=== PATIENT | male | born 1930 | race Caucasian/White ===

== ENCOUNTER 2018-08-06 15:18 | Inpatient (IN) | payer MEDICARE ==
--- NOTE | 2018-08-06 15:45 | ED Physician Chart ---
ED Chief Complaint/HPI - Patient Information Date Seen:: 08/06/18 Time Seen:: 15:25 Chief Complaint:: Abnormal lab result with leukocytosis History of Present Illness:: Brought in by ambulance from nursing facility because pt's lab studies yesterday demonstrated WBC 14.07K, and CXR revealed right upper lobe infiltrate. Pt states he has a nonproductive cough but no dyspnea or chest pain. Pt has h/o dementia. Pt tends to be forgetful and is a poor history provider. Allergies:: Allergies Allergy/AdvReac Type Severity Reaction Status Date / Time No Known Allergies Allergy Verified 08/06/18 15:26 Vitals:: Vital Signs - 8 hr 08/06/18 15:26 Temp 98.7 F HR 80 RR 17 BP 141/64 O2 Sat % 96 Historian:: Patient Family MD/PCP:: Dr. Mcnally. LMP:: N/A Review:: Nurse's Note Reviewed, Transfer documents Reviewed ED Review of Systems - Review of Systems General/Constitutional: Other (Pt does not cooperate to provide reliable info for ROS.) ED Past Medical History - Past Medical History Past Medical History: HTN, CAD, Dyslipidemia, Dementia, Other (Parkinson's Disease. BPH.) Family History: None Social History: Non Smoker, No Alcohol, No Drug Use Surgical History: CABG Psychiatricy History: Dementia Medication: Reviewed Family Medical History - Family Member Mother History Unknown: Yes ED Physical Exam - Physical Examination General/Constitutional: Awake, Well-developed, well-nourished (elderly male), Alert, No distress, Non-toxic appearing Other Gen/Cons comments:: Breathes comfortably, speaks clearly, but is not fully cooperative. Head: Atraumatic Eyes: Lids, conjuctiva normal, PERRL, EOMI Skin: No rash, No lymphadenopathy ENMT: External ears, nose nl, Nasal exam nl, Oropharynx nl Neck: Nontender, Full ROM w/o pain, No JVD, No nuchal rigidity, No mass Respiratory: Nl effort/Exclusion Other Respiratory comments:: There mild rales noticed in R mid lung field. No wheeze. Cardio Vascular: RRR, No murmur, gallop, rubs, Carotid/Femoral/Distal pulses equal bilaterally Other Cardio Vascular comments:: Chest exam shows a well healed sternostomy scar. GI: No tenderness/rebounding/guarding, Normal BS's, Nondistended, No mass/bruits Other GI comments:: Abdomen is soft. Extremities: No tenderness or effusion, Full ROM, No edema Neuro/Psych: Alert/oriented (knows his name and that he is in a hospital. Spontaneous movements noticed in all 4 extremities. Pt does not cooperate for full neurological exam.) ED Labs/Radiology/EKG Results - Lab Results Results: Laboratory Results - last 24 hr 08/06/18 16:20 WBC 9.0 RBC 4.70 Hgb 11.5 L Hct 36.3 L MCV 77.2 L MCH 24.5 L MCHC Differential 31.7 RDW 15.9 Plt Count 156 MPV 8.3 Neutrophils % 65.3 Lymphocytes % 22.8 Monocytes % 10.5 H Eosinophils % 1.0 Basophils % 0.4 Laboratory Last Values WBC 9.0 Th/cmm (4.8-10.8) 08/06/18 16:20 RBC 4.70 Mil/cmm (3.80-5.80) 08/06/18 16:20 Hgb 11.5 gm/dL (12-16) L 08/06/18 16:20 Hct 36.3 % (41.0-60) L 08/06/18 16:20 MCV 77.2 fl (80-99) L 08/06/18 16:20 MCH 24.5 pg (27.0-31.0) L 08/06/18 16:20 MCHC Differential 31.7 pg (28.0-36.0) 08/06/18 16:20 RDW 15.9 % (11.5-20.0) 08/06/18 16:20 Plt Count 156 Th/cmm (150-400) 08/06/18 16:20 MPV 8.3 fl 08/06/18 16:20 Neutrophils % 65.3 % (40.0-80.0) 08/06/18 16:20 Lymphocytes % 22.8 % (20.0-50.0) 08/06/18 16:20 Monocytes % 10.5 % (2.0-10.0) H 08/06/18 16:20 Eosinophils % 1.0 % (0.0-5.0) 08/06/18 16:20 Basophils % 0.4 % (0.0-2.0) 08/06/18 16:20 PT 11.4 SECONDS (9.5-11.5) 08/06/18 16:20 INR 1.11 (0.5-1.4) 08/06/18 16:20 PTT (Actin FS) 26.7 SECONDS (26.0-38.0) 08/06/18 16:20 Sodium 141 mEq/L (136-145) 08/06/18 16:20 Potassium 3.9 mEq/L (3.5-5.1) 08/06/18 16:20 Chloride 106 mEq/L (98-107) 08/06/18 16:20 Carbon Dioxide 27.5 mEq/L (21.0-31.0) 08/06/18 16:20 Anion Gap 11.4 (7.0-16.0) 08/06/18 16:20 BUN 26 mg/dL (7-25) H 08/06/18 16:20 Creatinine 1.0 mg/dL (0.7-1.3) 08/06/18 16:20 Est GFR ( Amer) TNP 08/06/18 16:20 Est GFR (Non-Af Amer) TNP 08/06/18 16:20 BUN/Creatinine Ratio 26.0 08/06/18 16:20 Glucose 114 mg/dL (70-105) H 08/06/18 16:20 Whole Bld Lactic Acid 1.32 mmol/L (0.60-1.99) 08/06/18 16:20 Calcium 9.0 mg/dL (8.6-10.3) 08/06/18 16:20 Total Bilirubin 0.7 mg/dL (0.3-1.0) 08/06/18 16:20 AST 16 U/L (13-39) 08/06/18 16:20 ALT 7 U/L (7-52) 08/06/18 16:20 Alkaline Phosphatase 84 U/L (34-104) 08/06/18 16:20 Total Protein 6.0 gm/dL (6.0-8.3) 08/06/18 16:20 Albumin 3.5 gm/dL (4.2-5.5) L 08/06/18 16:20 Globulin 2.5 gm/dL 08/06/18 16:20 Albumin/Globulin Ratio 1.4 (1.0-1.8) 08/06/18 16:20 Pending lab results to be followed by admitting attending physician: blood cultures, urinalysis. - Radiology Results Results: CXR (1v.): Based on my interpretation, RUL infiltrate c/w pneumonia. Official report is pending. ED Septic Shock - . Is Septic Shock (SBP<90, OR Lactate>4 mmol\L) present?: No - <6hrs of presentation: Vital Signs: Vital Signs - 8 hr 08/06/18 15:26 Temp 98.7 F HR 80 RR 17 BP 141/64 O2 Sat % 96 ED Reassessment (Disposition) - Reassessment Reassessment:: 1640 Pt remains stable. Available lab results and CXR findings have been reviewed with pt. Management plan has been discussed. Case was discussed with Dr. Mcnally with pertinent info, including CXR and available lab results reviewed. Pt is to be admitted Medical [facility]to with respiratory isolation under his care. He will follow on pending lab results. - Diagnosis Diagnosis:: RUL pneumonia. H/O HTN. Mild anemia. H/O ASHD, s/p CABG. H/O Parkinson's Disease. H/O Dementia. - Patient Disposition Admitted to:: Med/Surg Admitting Medical Physician:: Jen Mcnally Time:: 16:45 Condition at Disposition:: Stable
[2018-08-06] MEDS ORDERED: Azithromycin 500 MG in Sodium Chloride 0.9% 250 ML IV ONE (15:58)
[2018-08-06] MEDS ORDERED: cefTRIAXone 1 GM in Sodium Chloride 0.9% 50 ML IV ONE (15:58)
[2018-08-06 16:26] LABS: % BASOPHILS 0.4 % (0.0-2.0); % LYMPHOCYTES 22.8 % (20.0-50.0); % MONOCYTES 10.5 % (2.0-10.0); % NEUTROPHILS 65.3 % (40.0-80.0); EOSINOPHILE ABSOLUTE 0.1 Th/cmm (0.1-0.4); HEMATOCRIT 36.3 % (41.0-60); HEMOGLOBIN 11.5 gm/dL (12-16); LYMPHOCYTE ABSOLUTE 2.1 Th/cmm (1.5-3.0); MEAN CELL VOLUME 77.2 fl (80-99); MEAN CORPUSCULAR HEMOGLOBIN 24.5 pg (27.0-31.0); MEAN CORPUSCULAR HGB CONC 31.7 pg (28.0-36.0); MEAN PLATELET VOLUME 8.3 fl; MONOCYTE ABSOLUTE 0.9 Th/cmm (0.3-1.0); NEUTROPHILE ABSOLUTE 5.9 Th/cmm (1.8-8.0); PLATELET COUNT 156 Th/cmm (150-400); RED CELL DISTRIBUTION WIDTH 15.9 % (11.5-20.0)
[2018-08-06 16:41] LABS: ALB/GLOB RATIO 1.4 (1.0-1.8); ALBUMIN 3.5 gm/dL (4.2-5.5); ALKALINE PHOSPHATASE 84 U/L (34-104); ANION GAP 11.4 (7.0-16.0); BILIRUBIN,TOTAL 0.7 mg/dL (0.3-1.0); BUN - UREA NITROGEN 26 mg/dL (7-25); CARBON DIOXIDE 27.5 mEq/L (21.0-31.0); CHLORIDE 106 mEq/L (98-107); GLUCOSE 114 mg/dL (70-105); INR 1.11 (0.5-1.4); POTASSIUM SERUM 3.9 mEq/L (3.5-5.1); PROTHROMBIN TIME (TEST) 11.4 SECONDS (9.5-11.5); SGOT 16 U/L (13-39); SGPT/ALT 7 U/L (7-52); SODIUM SERUM 141 mEq/L (136-145)
[2018-08-06 16:56] LABS: URINE SOURCE CLEAN C
[2018-08-06 16:57] LABS: URINE BILIRUBIN NEGATIVE (NEGATIVE); URINE BLOOD NEGATIVE (NEGATIVE); URINE GLUCOSE (UA) NEGATIVE (NEGATIVE); URINE KETONE TRACE mg/dL (NEGATIVE); URINE LEUKOCYTE ESTERASE NEGATIVE (NEGATIVE); URINE NITRATE NEGATIVE (NEGATIVE); URINE PROTEIN NEGATIVE (NEGATIVE); URINE UROBILINOGEN 0.2 E.U./dL (0.2 - 1.0)
[2018-08-06 17:00] LABS: URINE CLARITY CLEAR (CLEAR); URINE COLOR YELLOW; URINE MICROSCOPIC INDICATED? YES
[2018-08-06 17:05] LABS: URINE BACTERIA FEW /hpf (NONE SEEN); URINE EPITHELIAL CELLS OCCASIONAL /lpf (FEW); URINE WBC 0-2 /hpf (0-5)
[2018-08-07 06:57] LABS: % BASOPHILS 1.1 % (0.0-2.0); % EOSINOPHILS 2.1 % (0.0-5.0); % LYMPHOCYTES 21.9 % (20.0-50.0); % MONOCYTES 8.5 % (2.0-10.0); % NEUTROPHILS 66.4 % (40.0-80.0); BASOPHILE ABSOLUTE 0.1 Th/cumm (0-0.2); EOSINOPHILE ABSOLUTE 0.2 Th/cmm (0.1-0.4); HEMATOCRIT 36.8 % (41.0-60); LYMPHOCYTE ABSOLUTE 1.9 Th/cmm (1.5-3.0); MEAN CELL VOLUME 78.6 fl (80-99); MEAN CORPUSCULAR HEMOGLOBIN 25.6 pg (27.0-31.0); MEAN CORPUSCULAR HGB CONC 32.6 pg (28.0-36.0); MEAN PLATELET VOLUME 8.7 fl; MONOCYTE ABSOLUTE 0.7 Th/cmm (0.3-1.0); NEUTROPHILE ABSOLUTE 5.6 Th/cmm (1.8-8.0); PLATELET COUNT 155 Th/cmm (150-400); RED BLOOD COUNT 4.68 Mil/cmm (3.80-5.80); RED CELL DISTRIBUTION WIDTH 15.9 % (11.5-20.0); WHITE BLOOD COUNT 8.5 Th/cmm (4.8-10.8)
[2018-08-07 07:22] LABS: ALB/GLOB RATIO 1.3 (1.0-1.8); ALBUMIN 3.3 gm/dL (4.2-5.5); ALKALINE PHOSPHATASE 70 U/L (34-104); ANION GAP 11.6 (7.0-16.0); BILIRUBIN,TOTAL 0.8 mg/dL (0.3-1.0); BUN - UREA NITROGEN 21 mg/dL (7-25); CALCIUM SERUM 8.7 mg/dL (8.6-10.3); CARBON DIOXIDE 25.4 mEq/L (21.0-31.0); CHLORIDE 107 mEq/L (98-107); CREATININE - SERUM 0.9 mg/dL (0.7-1.3); GLUCOSE 98 mg/dL (70-105); SGOT 21 U/L (13-39); SGPT/ALT 12 U/L (7-52); SODIUM SERUM 140 mEq/L (136-145); TOTAL PROTEIN,SERUM 5.8 gm/dL (6.0-8.3)
--- NOTE | 2018-08-07 08:40 | Diagnostic Imaging Report ---
CHEST X-RAY: AP view INDICATION: Leukocytosis, pneumonia COMPARISON: None FINDINGS: Right mid to right upper lung zone consolidative changes and infiltrates are noted. Small basal pleural thickening versus small right effusion is seen with elevation of right hemidiaphragm. There is evidence of prior median sternotomy. Borderline prominent heart is noted. Degenerative changes of spine are noted. IMPRESSION: Right mid to upper lung zone pneumonia and consolidative changes. Clinical correlation and follow up recommended to ensure resolution. Right basal pleural thickening versus small right effusion Evidence of prior median sternotomy.
[2018-08-07] MEDS: Escitalopram Oxalate 5 mg Tab PO SCH (09:31)
[2018-08-07] MEDS: Aspirin 81mg Chewable Tab PO SCH (09:31)
--- NOTE | 2018-08-07 13:51 | Consultation ---
DATE OF CONSULTATION: 08/07/2018 PSYCHIATRIC CONSULTATION THE PATIENT'S AGE: 88. SEX: Male. PHYSICIAN: Dr. Mcnally. CUT PRESS OPERATOR: Dr. Anne. TYPE OF THE REPORT: Psychiatric consult. REASON FOR THE CONSULT: Depression. HISTORY OF PRESENT ILLNESS: The patient is an 88-year-old male with history of dementia. The patient also has Parkinson's disease. The patient was admitted to the hospital with elevated white blood count and to rule out pneumonia. The patient has been anxious and has been depressed. I was asked to evaluate the patient. The patient was severely depressed and kept closing his eyes during my interview and did not answer most of my questions. He is living in a half-way in the [facility] and he has been interacting minimally with others. The patient denies any intention to harm himself or others, but has been depressed. PAST PSYCHIATRIC HISTORY: Noncontributory. PAST MEDICAL HISTORY: The patient has history of hypertension and Parkinson's disease. Question pneumonia. MENTAL STATUS EXAM: The patient appears his stated age. Sad affect. Depressed mood. Thought processes are with poverty of speech. The patient did not answer question regarding hallucinations or delusions. Denies any thoughts of suicide or homicide. The patient is alert and oriented to situation, not to place or person. Impaired immediate and recent memory, but intact remote memories. Fair insight and judgment. ASSESSMENT: PRIMARY DIAGNOSIS: Depressive mood disorder, unspecified. SECONDARY DIAGNOSIS: Dementia, moderate to severe, without psychotic features. TREATMENT PLAN: We will start the patient on Lexapro 5 mg every day. We will start individual as well as milieu psychotherapy. We will monitor psychotropic medications. Thanks to Dr. Mcnally and we will follow with you. [facility]# [id number]
[2018-08-07] MEDS: Azithromycin 500 MG in Sodium Chloride 0.9% 250 ML IV SCH (15:04)
--- NOTE | 2018-08-07 15:17 | History & Physical ---
ADMIT DATE: 08/06/[address] Mcnally. CHIEF COMPLAINT: Abnormal lab. HISTORY OF PRESENT ILLNESS: An 88-year-old male who is a long-term resident, admitted to the Med/Surg Unit due to white count of 14,000 and the patient had a chest x-ray and it revealed right upper lobe pneumonia. No reports of any fevers at the long-term. PAST MEDICAL HISTORY: Hypertension, CAD, dementia, dyslipidemia, Parkinson's, BPH. FAMILY HISTORY: Noncontributory. SOCIAL HISTORY: The patient is a long-term resident. SURGICAL HISTORY: CABG. MEDICATIONS: See medication list. REVIEW OF SYSTEMS: Unable to obtain, patient is confused. PHYSICAL EXAMINATION: GENERAL: Elderly male, awake, alert with confusion, no apparent distress. VITAL SIGNS: Temperature 98.6, heart rate 96, blood pressure 140/64, respirations 18, O2 95%. HEENT: Head: Normocephalic, atraumatic. NECK: Supple. No mass. LUNGS: Few rhonchi bilaterally. HEART: Regular rhythm. ABDOMEN: Soft, nontender. LABORATORY DATA: WBC 8.5, H and H 12.0 and 36.8, platelet of 155. Sodium 140, potassium 4.0, chloride 107, BUN 21, creatinine 0.9. DIAGNOSTIC STUDIES: The patient had a chest x-ray done. Impression is right mid to upper lung zone pneumonia and consolidated changes. Clinical correlation and followup recommended to ensure resolution; right basal pleural thickening versus small right effusion, evidence of median sternotomy. ASSESSMENT: Right upper lobe pneumonia, possible tuberculosis, leukocytosis secondary to above, hypertension, coronary artery disease, dyslipidemia, dementia, Parkinson's, benign prostatic hypertrophy. PLAN: The patient to be admitted to Med/Surg unit. We will get Infectious Disease, robot programmer on the case to rule out for TB, airborne isolation, collect AFB, TB quant, IV antibiotics of Zithromax and Rocephin. We will get followup labs for tomorrow morning. We will continue to monitor this patient. JOB# [id number]
[2018-08-07] MEDS ORDERED: cefTRIAXone 1 GM in Sodium Chloride 0.9% 50 ML IV ONE (17:00)
[2018-08-07] MEDS ORDERED: Probiotic Screen MC PRN (17:30)
[2018-08-08 07:15] LABS: % BASOPHILS 0.4 % (0.0-2.0); % EOSINOPHILS 3.5 % (0.0-5.0); % LYMPHOCYTES 21.2 % (20.0-50.0); % NEUTROPHILS 65.9 % (40.0-80.0); EOSINOPHILE ABSOLUTE 0.3 Th/cmm (0.1-0.4); HEMATOCRIT 40.5 % (41.0-60); HEMOGLOBIN 12.9 gm/dL (12-16); MEAN CELL VOLUME 77.8 fl (80-99); MEAN CORPUSCULAR HEMOGLOBIN 24.7 pg (27.0-31.0); MEAN CORPUSCULAR HGB CONC 31.8 pg (28.0-36.0); MONOCYTE ABSOLUTE 0.8 Th/cmm (0.3-1.0); NEUTROPHILE ABSOLUTE 6.1 Th/cmm (1.8-8.0); PLATELET COUNT 174 Th/cmm (150-400); RED BLOOD COUNT 5.21 Mil/cmm (3.80-5.80); WHITE BLOOD COUNT 9.2 Th/cmm (4.8-10.8)
--- NOTE | 2018-08-08 07:24 | Consultation ---
DATE OF CONSULTATION: 08/07/2018 REFERRING PHYSICIAN: Dr. Mcnally, Dr. Damon Lyles. Thank you very much for this consultation. HISTORY OF PRESENT ILLNESS: This is an 88-year-old nice male with history of hypertension on admission, dyslipidemia, Parkinson's, presents with some cough and leukocytosis. Chest x-ray showed right upper lobe infiltrate. The patient was admitted for treatment and management. The patient is feeling better, has less cough and some mucus coming off. He denies history of TB, exposure to tuberculosis. Denies history of lung problems. He is a nonsmoker. REVIEW OF SYSTEMS: GENERAL: He has no fatigue. CARDIOVASCULAR: No chest pain or palpation. RESPIRATORY: No shortness of breath, minimal cough. PHYSICAL EXAMINATION: GENERAL: Awake, alert, not in acute distress. VITAL SIGNS: Temperature 98.3, pulse 92, respiration 18, blood pressure 153/80, saturation 96%. HEENT: Atraumatic, normocephalic. Pupils react to light and accommodation. Ears, nose and throat normal. NECK: Supple. No JVD. CHEST: There are few rhonchi. Fair air entry bilaterally. HEART: Regular rate and rhythm. ABDOMEN: Soft. EXTREMITIES: No edema. LABORATORY DATA: WBC is 8.5, hemoglobin 12.0, platelets 155. Sodium 140, potassium 4.0, BUN is 21, creatinine 0.9. Chest x-ray, right upper lobe infiltrate. IMPRESSION: This is an 88-year-old male with most likely pneumonia, less likely tuberculosis. PLAN: 1. Antibiotics. 2. Nebulizer. 3. CT of the chest for better evaluation. JOB# [id number]
[2018-08-08 07:32] LABS: BUN - UREA NITROGEN 19 mg/dL (7-25); CALCIUM SERUM 9.1 mg/dL (8.6-10.3); CARBON DIOXIDE 26.3 mEq/L (21.0-31.0); CHLORIDE 108 mEq/L (98-107); CREATININE - SERUM 0.9 mg/dL (0.7-1.3); GLUCOSE 115 mg/dL (70-105); POTASSIUM SERUM 4.3 mEq/L (3.5-5.1); SODIUM SERUM 143 mEq/L (136-145)
[2018-08-08] MEDS: Aspirin 81mg Chewable Tab PO SCH (09:11)
[2018-08-08] MEDS: Escitalopram Oxalate 5 mg Tab PO SCH (09:11)
[2018-08-08 10:59] LABS: ALB/GLOB RATIO 1.3 (1.0-1.8); ALBUMIN 3.5 gm/dL (4.2-5.5); BILIRUBIN,DIRECT 0.2 mg/dL (0.0-0.2); BILIRUBIN,TOTAL 0.8 mg/dL (0.3-1.0); TOTAL PROTEIN,SERUM 6.2 gm/dL (6.0-8.3)
[2018-08-08] MEDS: cefTRIAXone 1 GM in Sodium Chloride 0.9% 50 ML IV SCH (15:18)
[2018-08-08] MEDS: Azithromycin 500 MG in Sodium Chloride 0.9% 250 ML IV SCH (15:19)
--- NOTE | 2018-08-08 20:21 | Internal Medicine Prog Note ---
Internal Medicine Subjective - Subjective Service Date: 08/08/18 Patient seen and examined:: with staff Patient is:: awake, talking, confused Patient Complaints of:: congestion (hx of parkinson's disease.), other Per staff patient has:: no adverse event, no episodes of fall Internal Medicine Objective - Results Result Diagrams: 08/08/18 06:35 08/08/18 06:35 Recent Labs: Laboratory Last Values WBC 9.2 Th/cmm (4.8-10.8) 08/08/18 06:35 RBC 5.21 Mil/cmm (3.80-5.80) 08/08/18 06:35 Hgb 12.9 gm/dL (12-16) 08/08/18 06:35 Hct 40.5 % (41.0-60) L 08/08/18 06:35 MCV 77.8 fl (80-99) L 08/08/18 06:35 MCH 24.7 pg (27.0-31.0) L 08/08/18 06:35 MCHC Differential 31.8 pg (28.0-36.0) 08/08/18 06:35 RDW 16.0 % (11.5-20.0) 08/08/18 06:35 Plt Count 174 Th/cmm (150-400) 08/08/18 06:35 MPV 9.0 fl 08/08/18 06:35 Neutrophils % 65.9 % (40.0-80.0) 08/08/18 06:35 Lymphocytes % 21.2 % (20.0-50.0) 08/08/18 06:35 Monocytes % 9.0 % (2.0-10.0) 08/08/18 06:35 Eosinophils % 3.5 % (0.0-5.0) 08/08/18 06:35 Basophils % 0.4 % (0.0-2.0) 08/08/18 06:35 PT 11.4 SECONDS (9.5-11.5) 08/06/18 16:20 INR 1.11 (0.5-1.4) 08/06/18 16:20 PTT (Actin FS) 26.7 SECONDS (26.0-38.0) 08/06/18 16:20 Sodium 143 mEq/L (136-145) 08/08/18 06:35 Potassium 4.3 mEq/L (3.5-5.1) 08/08/18 06:35 Chloride 108 mEq/L (98-107) H 08/08/18 06:35 Carbon Dioxide 26.3 mEq/L (21.0-31.0) 08/08/18 06:35 Anion Gap 13.0 (7.0-16.0) 08/08/18 06:35 BUN 19 mg/dL (7-25) 08/08/18 06:35 Creatinine 0.9 mg/dL (0.7-1.3) 08/08/18 06:35 Est GFR ( Amer) TNP 08/08/18 06:35 Est GFR (Non-Af Amer) TNP 08/08/18 06:35 BUN/Creatinine Ratio 21.1 08/08/18 06:35 Glucose 115 mg/dL (70-105) H 08/08/18 06:35 POC Glucose 111 MG/DL (70 - 105) H 08/06/18 18:32 Whole Bld Lactic Acid 1.32 mmol/L (0.60-1.99) 08/06/18 16:20 Calcium 9.1 mg/dL (8.6-10.3) 08/08/18 06:35 Total Bilirubin 0.8 mg/dL (0.3-1.0) 08/08/18 06:35 Direct Bilirubin 0.20 mg/dL (0.0-0.2) 08/08/18 06:35 AST 22 U/L (13-39) 08/08/18 06:35 ALT 11 U/L (7-52) 08/08/18 06:35 Alkaline Phosphatase 75 U/L (34-104) 08/08/18 06:35 Total Protein 6.2 gm/dL (6.0-8.3) 08/08/18 06:35 Albumin 3.5 gm/dL (4.2-5.5) L 08/08/18 06:35 Globulin 2.7 gm/dL 08/08/18 06:35 Albumin/Globulin Ratio 1.3 (1.0-1.8) 08/08/18 06:35 Urine Source CLEAN C 08/06/18 14:55 Urine Color YELLOW 08/06/18 14:55 Urine Clarity CLEAR (CLEAR) 08/06/18 14:55 Urine pH 6.0 (4.6 - 8.0) 08/06/18 14:55 Ur Specific [place] 1.020 (1.005-1.030) 08/06/18 14:55 Urine Protein NEGATIVE mg/dL (NEGATIVE) 08/06/18 14:55 Urine Glucose (UA) NEGATIVE mg/dL (NEGATIVE) 08/06/18 14:55 Urine Ketones TRACE mg/dL (NEGATIVE) 08/06/18 14:55 Urine Blood NEGATIVE (NEGATIVE) 08/06/18 14:55 Urine Nitrate NEGATIVE (NEGATIVE) 08/06/18 14:55 Urine Bilirubin NEGATIVE (NEGATIVE) 08/06/18 14:55 Urine Urobilinogen 0.2 E.U./dL (0.2 - 1.0) 08/06/18 14:55 Ur Leukocyte Esterase NEGATIVE (NEGATIVE) 08/06/18 14:55 Urine RBC 2-5 /hpf (0-5) H 08/06/18 14:55 Urine WBC 0-2 /hpf (0-5) 08/06/18 14:55 Ur Epithelial Cells OCCASIONAL /lpf (FEW) 08/06/18 14:55 Calcium Oxalate Crystal FEW /hpf 08/06/18 14:55 Urine Bacteria FEW /hpf (NONE SEEN) 08/06/18 14:55 HIV 1&2 Antibody Screen NEGATIVE (NEG) 08/07/18 06:30 - Physical Exam Vitals and I&O: Vital Signs Temp 98.1 F 08/08/18 19:45 Pulse 75 08/08/18 19:45 Resp 18 08/08/18 19:45 BP 134/72 08/08/18 19:45 Pulse Ox 93 08/08/18 19:45 Intake & Output 08/08/18 08/08/18 08/09/18 06:59 18:59 06:59 Intake Total 700 Balance 700 Weight (lbs) 61.235 kg 61.235 kg Intake: Oral 700 Other: # Voids 4 # Bowel Movements 1 1 Weight Source Bedscale Bedscale Active Medications: Current Medications Acetaminophen (Tylenol) 650 mg PO Q4H PRN PRN Reason: ELEVATED TEMP >99.9 Acetaminophen (Tylenol) 650 mg PO Q4H PRN PRN Reason: PAIN Ascorbic Acid (Vitamin C) 500 mg PO BID SHERITA Stop: 10/06/18 08:59 Last Admin: 08/08/18 16:19 Dose: 500 mg Aspirin (Aspirin Chewable) 81 mg PO DAILY SHERITA Stop: 10/06/18 08:59 Last Admin: 08/08/18 09:11 Dose: 81 mg Atorvastatin Calcium (Lipitor) 80 mg PO HS [facility]; Protocol Stop: 10/06/18 20:59 Last Admin: 08/08/18 20:13 Dose: 80 mg Benazepril HCl (Lotensin) 5 mg PO DAILY SHERITA Stop: 10/06/18 08:59 Last Admin: 08/08/18 09:11 Dose: 5 mg Bisacodyl (Dulcolax 10 Mg Supp) 10 mg RC Q48H PRN PRN Reason: IF NO RELIEF FROM MOM Carbidopa/Levodopa (Sinemet 25mg-100 Mg) 1 tab PO TID [facility] Stop: 10/06/18 08:59 Last Admin: 08/08/18 20:13 Dose: 1 tab Escitalopram Oxalate (Lexapro) 5 mg PO DAILY [facility]; Protocol Stop: 10/06/18 08:59 Last Admin: 08/08/18 09:11 Dose: 5 mg Azithromycin 500 mg/ Sodium (Chloride) 250 mls @ 250 mls/hr IV Q24HR [facility] Stop: 10/06/18 15:59 Last Admin: 08/08/18 15:19 Dose: 250 mls/hr Ceftriaxone Sodium 1 gm/ (Sodium Chloride) 50 mls @ 100 mls/hr IV Q24HR [facility] Stop: 10/07/18 14:59 Last Admin: 08/08/18 15:18 Dose: 100 mls/hr Lorazepam (Ativan) 1 mg IM Q4HR PRN; Protocol PRN Reason: Agitation Stop: 10/05/18 23:34 Last Admin: 08/06/18 23:55 Dose: 1 mg Miscellaneous (Probiotic Screen) 1 ea [facility] PRN PRN PRN Reason: PROTOCOL Stop: 10/06/18 17:29 Physical Exam: 88 y/o male patient has hx of parkinson's disease and dementia. General: weak, demented HEENT: NC/AT Neck: Supple, No JVD Lungs: rales, ronchi, other (R/o TB.) Cardiovascular: RRR, Normal S1 Abdomen: soft, non-tender Extremities: clear Neurological: no change, muscle weakness Internal Medicine Assmt/Plan - Assessment Assessment: Parkinson's disease. Dementia. BPH. Dyslipidemia. HTN. CAD. Pneumonia. Possible TB, airborne isolation. Leukocytosis. - Plan Plan: Continuation of care. Monitor vitals, low sodium diabetic diet and Labs. Continue present meds as directed. Respiratory treatments and Pulmonary support. Supplemental Oxygen. Aspiration precaution. Deep suctioning prn. Monitor mental status progression. Monitor behavioral health status. Continue Airborne Isolation. Safety precaution. Supportive care. Fall precaution, frequent nursing rounds, and as needed restraints to prevent fall. Continue present care management. Nutritional Asmnt/Malnutr-PDOC - Dietary Evaluation Malnutrition Findings (Please click <Entered> for more info): see orders.
--- NOTE | 2018-08-08 22:40 | Progress Notes ---
DATE: SUBJECTIVE: Chart was reviewed and the patient interviewed. Also discussed the patient's condition with the staff and reviewed records and labs. The patient remains calm and quiet. The patient also is less irritable and less agitated. The patient also is interacting more with peers. He is compliant with taking medications with no side effects of medications. ASSESSMENT: The patient is less agitated and less irritable. TREATMENT PLAN: We will continue current medications and continue to monitor behavior and followup. [facility]# [id number]
--- NOTE | 2018-08-08 22:48 | Consultation ---
DATE OF CONSULTATION: 08/08/2018 INFECTIOUS DISEASE CONSULTATION REFERRING PHYSICIAN: Salvador Mcnally M.D. REASON FOR CONSULTATION: Rectal mucosa and right upper lobe pneumonia. HISTORY OF PRESENT ILLNESS: The patient is an 88-year-old male with a past medical history of dementia, hypertension, coronary artery disease, dyslipidemia, Parkinson disease, BPH, brought in from alf for chest x-ray revealing right upper lobe infiltrate. The patient's lab also showed WBC of 14,700. The patient was brought to the ER for further evaluation. On initial evaluation, the patient's temperature was 98.7 degrees Fahrenheit and WBC count was 9000. The patient was started on Rocephin and Zithromax. Chest x-ray revealed right upper lobe and right middle lobe pneumonia. PAST MEDICAL HISTORY: Includes as mentioned above, hypertension, heart disease, dementia, Parkinson disease, dyslipidemia, benign prostatic hypertrophy. FAMILY HISTORY: Noncontributory. PAST SURGICAL HISTORY: Includes CABG. SOCIAL HISTORY: The patient lives in a alf. No history of smoking, alcohol or drug use. REVIEW OF SYSTEMS: GENERAL: The patient denies any fever, chills or diaphoresis. The patient denies any sweating. The patient denies any weight loss. The patient denies any generalized weakness. HEENT: Denies any diplopia, no photophobia, no sore throat. RESPIRATORY: No cough, no shortness of breath, no hemoptysis. GASTROINTESTINAL: The patient has no nausea, no vomiting, no diarrhea. No constipation. No hematemesis, no hematochezia. No dysphagia, no loss of appetite. GENITOURINARY: The patient denies any dysuria. The patient denies any hematuria. CENTRAL NERVOUS SYSTEM: No headache, no dizziness, and no focal weakness. PHYSICAL EXAMINATION: VITAL SIGNS: Current vital signs shows temperature is 98.1 degrees Fahrenheit, pulse is 93, respirations 18, blood pressure 133/76 and oxygen saturation 92%. GENERAL: The patient is comfortable, not in acute distress, well nourished, well developed with BMI 23. HEENT: Head is normocephalic, atraumatic. Oral cavity moist, pink tongue. EYES: No pallor, no icterus. Pupils PERRLA, EOMI. Face is symmetrical. NECK: Supple, no JVD, no carotid bruit. Trachea in midline. CHEST: Bilateral breath sounds. No crackles or wheezing. HEART: S1, S2 within normal limits. Regular rhythm. No murmur, no gallop. ABDOMEN: Soft, nontender, nondistended. Bowel sounds present. No hepatosplenomegaly appreciated. EXTREMITIES: No cyanosis, no clubbing, no edema. NEUROLOGIC: Alert, awake, oriented x 3. No focal deficits. LABORATORY DATA: Lab gil, current lab shows WBC count is 9200, hemoglobin 12.9, hematocrit 40.5, platelets are 174,000, neutrophils 66%. INR is 1.11. Sodium is 143, potassium 4.3, chloride 108, bicarbonate is 26, BUN is 19, creatinine is 0.9, glucose is 115. Urinalysis shows negative nitrite, negative leukoesterase and HIV screen is negative. Chest x-ray was reviewed and is suggested right upper lobe, right mid to upper lung zone, pneumonia and consolidative changes. Clinical evaluation and followup recommended to ensure an infection resolution. Right basal pleural thickening versus small right effusion and evidence of right median sternotomy. IMPRESSION: 1. Right upper lobe infiltrate. Differential includes a community-acquired pneumonia versus atypical pneumonia and rule out tuberculosis of the lung or pulmonary tuberculosis. 2. Dementia. 3. Hypertension. 4. History of heart disease. 5. Dementia. 6. Hypothyroidism. RECOMMENDATIONS: We will continue to be worked up with the sputum AFB x 3 and MV PCR. HIV screening was done, CMP was done and repeat chest x-ray and CT scan of the chest was ordered. Thank you, Dr. Mcnally for involving me in taking care of this patient. JOB# [id number]
--- NOTE | 2018-08-08 23:03 | Consultation ---
DATE OF CONSULTATION: 08/08/2018 INFECTIOUS DISEASE CONSULTATION REFERRING PHYSICIAN: Dr. Mcnally. REASON FOR CONSULTATION: Right upper lobe pneumonia, suspect rule out tuberculosis. HISTORY OF PRESENT ILLNESS: The patient is an 88-year-old male with a past medical history of hypertensive heart disease, dyslipidemia, dementia, Parkinson disease, BPH brought in the ER for chest x-ray with right upper lobe infiltrate. The patient's WBC count is 14,000. On initial evaluation, the patient was afebrile with temperature 98.7 degrees Fahrenheit and WBC count 9,000. The patient was put on TB isolation. PAST MEDICAL HISTORY: Includes hypertension, coronary artery disease, dementia, dyslipidemia, Parkinson disease, and BPH. FAMILY HISTORY: Noncontributory. SOCIAL HISTORY: The patient [place] in a prison. No history of smoking, alcohol or drug use. PAST SURGICAL HISTORY: Includes CABG. MEDICATIONS: Per medication reconciliation sheet. Antibiotic gil, the patient is on azithromycin and Rocephin. ALLERGIES: NKDA. REVIEW OF SYSTEMS: GENERAL: The patient denies any fever or chills. No generalized weakness. HEENT: No diplopia, no photophobia, no sore throat. RESPIRATORY: The patient has no cough, no shortness of breath. The patient denies any hemoptysis. The patient denies any weight loss. CARDIOVASCULAR: The patient denies any chest pain or palpitation or leg swelling. GASTROINTESTINAL: The patient denies any nausea, vomiting, diarrhea or constipation. GENITOURINARY: No dysuria. NEUROLOGIC: No headache, no dizziness, no focal weakness. PHYSICAL EXAMINATION: VITAL SIGNS: Show temperature 98.1, pulse 93, respiration 18, blood pressure 133/76, oxygen saturation 92%. GENERAL: The patient is comfortable, lying in the bed, not in acute distress. Alert and oriented with BMI 23.2. HEENT: Head is normocephalic, atraumatic. Oral cavity moist, pink tongue. NECK: Supple, no JVD, no carotid bruit. Trachea in midline. CHEST: Bilateral breath sounds. No crackles or wheezing. HEART: S1, S2 within normal limits. Regular rhythm. No murmur, no gallop. ABDOMEN: Soft, nontender, nondistended. Bowel sounds present. EXTREMITIES: No cyanosis, no clubbing, no edema. NEUROLOGIC: Alert, awake, oriented x 3. Nonfocal. LABORATORY DATA: Lab gil, current lab shows WBC count is 9200, hemoglobin 12.9, hematocrit 40.5, platelets are 174,000, neutrophils 66%. INR is 1.11. Sodium is 143, potassium 4.3, chloride 108, bicarbonate is 26, BUN is 19, creatinine 0.9, glucose 115. Urinalysis shows negative nitrite, negative leukoesterase. HIV screen is negative. Blood culture 2 sets negative. MRSA screen is negative. Chest x-ray shows right upper and middle lobe infiltrate, most likely right upper lobe infiltrate and consolidation. We will try to rule out tuberculosis as a possibility. TB workup initiated. Also community-acquired pneumonia versus atypical pneumonia. IMPRESSION: 1. Right upper lobe pneumonia, rule out tuberculosis, may have community-acquired pneumonia versus atypical pneumonia. 2. Parkinson disease. 3. Hypertension. 4. Dementia. 5. Coronary artery disease. RECOMMENDATION AND PLAN: We will work up on TB. CBC and CMP, which were done. HIV screen was done. Wait for AFB x 3 from the sputum and MTB PCR. Check TB Gold QuantiFERON. We will order for legionella and mycoplasma serologies. Follow up chest x-ray. Thank you, Dr. Mcnally for involving me in taking care of this patient. JOB# [id number]
[2018-08-09 07:07] LABS: ANION GAP 12.5 (7.0-16.0); BUN - UREA NITROGEN 17 mg/dL (7-25); CALCIUM SERUM 9.1 mg/dL (8.6-10.3); CARBON DIOXIDE 26.7 mEq/L (21.0-31.0); CHLORIDE 107 mEq/L (98-107); CREATININE - SERUM 0.9 mg/dL (0.7-1.3); GLUCOSE 109 mg/dL (70-105); POTASSIUM SERUM 4.2 mEq/L (3.5-5.1); SODIUM SERUM 142 mEq/L (136-145)
[2018-08-09 07:19] LABS: % BASOPHILS 0.4 % (0.0-2.0); % LYMPHOCYTES 20.8 % (20.0-50.0); % MONOCYTES 10.7 % (2.0-10.0); % NEUTROPHILS 64.1 % (40.0-80.0); EOSINOPHILE ABSOLUTE 0.3 Th/cmm (0.1-0.4); HEMATOCRIT 40.6 % (41.0-60); HEMOGLOBIN 12.9 gm/dL (12-16); LYMPHOCYTE ABSOLUTE 1.8 Th/cmm (1.5-3.0); MEAN CELL VOLUME 78.2 fl (80-99); MEAN CORPUSCULAR HEMOGLOBIN 24.8 pg (27.0-31.0); MEAN CORPUSCULAR HGB CONC 31.8 pg (28.0-36.0); MEAN PLATELET VOLUME 8.6 fl; MONOCYTE ABSOLUTE 0.9 Th/cmm (0.3-1.0); NEUTROPHILE ABSOLUTE 5.5 Th/cmm (1.8-8.0); PLATELET COUNT 199 Th/cmm (150-400); RED BLOOD COUNT 5.19 Mil/cmm (3.80-5.80); RED CELL DISTRIBUTION WIDTH 15.7 % (11.5-20.0); WHITE BLOOD COUNT 8.5 Th/cmm (4.8-10.8)
[2018-08-09] MEDS: Aspirin 81mg Chewable Tab PO SCH (08:40)
[2018-08-09] MEDS: Escitalopram Oxalate 5 mg Tab PO SCH (08:40)
--- NOTE | 2018-08-09 08:45 | Diagnostic Imaging Report ---
CHEST X-RAY: AP view INDICATION: Pneumonia COMPARISON: 08/06/2018 FINDINGS: Mild improvement in right upper lobe infiltrates are noted. There is elevation right hemidiaphragm and right basal pleural thickening and probable small right effusion. Heart size normal. Postsurgical changes are noted. IMPRESSION: Improving right upper lobe infiltrate/pneumonia.
--- NOTE | 2018-08-09 08:53 | Diagnostic Imaging Report ---
CT Chest without IV contrast HISTORY: Pneumonia COMPARISON: Chest x-ray earlier the same day. Technique: Axial images were obtained from the base of the neck to the upper abdomen without IV contrast. Reconstructions were made. Total DLP to 35, CGI 6 Findings: Evaluation of mediastinum is limited due to lack of IV contrast. There is evidence of prior median sternotomy. Diffuse atherosclerotic vascular disease is noted. No evidence of an aneurysm. Heart size is normal. No pericardial effusion. No mediastinal lymphadenopathy. There is marked elevation of the right hemidiaphragm. There are multifocal right lung infiltrates primarily involving the right upper lobe and greatest posteriorly. Hypoventilatory and atelectatic changes are seen throughout the lungs. Right basal pleural thickening is noted with trace right pleural fluid. There is a mildly irregular pleural thickening are seen. The upper abdomen demonstrates gallstones. Atherosclerosis is noted. Degenerative changes of the spine are noted. IMPRESSION: Multifocal right lung infiltrates/pneumonia, primarily along the right upper lobe. Elevation of the right hemidiaphragm with right basal pleural thickening and probable scarring with areas of irregularity. Findings favor old infectious or inflammatory process. Neoplastic process is less likely please correlate with clinical history and with old exams.. Consider follow-up if indicated Hypoventilatory and atelectatic changes of lungs Diffuse atherosclerotic vascular disease. Evidence of prior median sternotomy. Gallstones.
--- NOTE | 2018-08-09 10:36 | Progress Notes ---
DATE: 08/08/2018 SUBJECTIVE: The patient appears to be doing better. Less cough and less congestion. PHYSICAL EXAMINATION: VITAL SIGNS: Temperature 98.1, pulse 93, respirations 18, blood pressure 133/76, saturation 92%-95%. CHEST: Good breath sounds, no wheezing. Few rhonchi. HEART: Regular rate and rhythm. ABDOMEN: Soft. EXTREMITIES: No edema. LABORATORY DATA: WBC is 9.2, hemoglobin 12.9. Sodium 142, potassium 4.3, BUN 19, creatinine 0.9. IMPRESSION: 1. Pneumonia. 2. Weakness. 3. Rule out tuberculosis. PLAN: 1. Antibiotics. 2. CTA chest for better evaluation. If resolving, maybe we can discontinue isolation on discharge. JOB# [id number]
[2018-08-09] MEDS: cefTRIAXone 1 GM in Sodium Chloride 0.9% 50 ML IV SCH (15:17)
[2018-08-09] MEDS: Azithromycin 500 MG in Sodium Chloride 0.9% 250 ML IV SCH (15:17)
--- NOTE | 2018-08-09 18:03 | Progress Notes ---
DATE: Chart reviewed and the patient interviewed. Also, discussed the patient's condition with the staff and reviewed records and labs. The patient is calm and cooperative and is currently not answering much of the questions. He also is sleeping better at night. The patient also is compliant, was taking his medications. Also, he is still in a depressed mood. Otherwise, no side effects of medications and no major behavioral problems. I will continue monitoring his behavior and his condition and continue adjusting psychotropic medications and followup. [facility]# [id number]
--- NOTE | 2018-08-10 05:00 | Progress Notes ---
DATE: 08/09/2018 PULMONARY PROGRESS NOTE SUBJECTIVE: The patient appears to be doing okay, comfortable, no distress. Have some cough with blood-tinged sputum. PHYSICAL EXAMINATION: VITAL SIGNS: Temperature 97.1, pulse 76, respirations 18, blood pressure 140/68, and saturation 94%. CHEST: Good breath sounds, no wheezing, no crackles. HEART: Regular rate and rhythm. No murmurs. ABDOMEN: Soft. EXTREMITIES: No edema. IMAGING: CT chest showed elevation of right hemidiaphragm with right pleural thickening, multifocal infiltrate in right upper lobe area. No cavitation. IMPRESSION: 1. Pneumonia. 2. Rule out tuberculosis. 3. Weakness. PLAN: 1. Continue antibiotics. 2. Follow up chest x-ray. 3. TB Gold and AFB sputum. JOB# [id number]
[2018-08-10] MEDS: Escitalopram Oxalate 5 mg Tab PO SCH (09:15)
[2018-08-10] MEDS: Aspirin 81mg Chewable Tab PO SCH (09:17)
--- NOTE | 2018-08-10 14:33 | Internal Medicine Prog Note ---
Internal Medicine Subjective - Subjective Service Date: 08/10/18 Patient seen and examined:: with staff Patient is:: awake, talking, confused Patient Complaints of:: congestion (hx of parkinson's disease.), cough, other ( Pneumonia.) Per staff patient has:: no adverse event, no episodes of fall Internal Medicine Objective - Results Result Diagrams: 08/09/18 06:30 08/09/18 06:30 Recent Labs: Laboratory Last Values WBC 8.5 Th/cmm (4.8-10.8) 08/09/18 06:30 RBC 5.19 Mil/cmm (3.80-5.80) 08/09/18 06:30 Hgb 12.9 gm/dL (12-16) 08/09/18 06:30 Hct 40.6 % (41.0-60) L 08/09/18 06:30 MCV 78.2 fl (80-99) L 08/09/18 06:30 MCH 24.8 pg (27.0-31.0) L 08/09/18 06:30 MCHC Differential 31.8 pg (28.0-36.0) 08/09/18 06:30 RDW 15.7 % (11.5-20.0) 08/09/18 06:30 Plt Count 199 Th/cmm (150-400) 08/09/18 06:30 MPV 8.6 fl 08/09/18 06:30 Neutrophils % 64.1 % (40.0-80.0) 08/09/18 06:30 Lymphocytes % 20.8 % (20.0-50.0) 08/09/18 06:30 Monocytes % 10.7 % (2.0-10.0) H 08/09/18 06:30 Eosinophils % 4.0 % (0.0-5.0) 08/09/18 06:30 Basophils % 0.4 % (0.0-2.0) 08/09/18 06:30 PT 11.4 SECONDS (9.5-11.5) 08/06/18 16:20 INR 1.11 (0.5-1.4) 08/06/18 16:20 PTT (Actin FS) 26.7 SECONDS (26.0-38.0) 08/06/18 16:20 Sodium 142 mEq/L (136-145) 08/09/18 06:30 Potassium 4.2 mEq/L (3.5-5.1) 08/09/18 06:30 Chloride 107 mEq/L (98-107) 08/09/18 06:30 Carbon Dioxide 26.7 mEq/L (21.0-31.0) 08/09/18 06:30 Anion Gap 12.5 (7.0-16.0) 08/09/18 06:30 BUN 17 mg/dL (7-25) 08/09/18 06:30 Creatinine 0.9 mg/dL (0.7-1.3) 08/09/18 06:30 Est GFR ( Amer) TNP 08/09/18 06:30 Est GFR (Non-Af Amer) TNP 08/09/18 06:30 BUN/Creatinine Ratio 18.9 08/09/18 06:30 Glucose 109 mg/dL (70-105) H 08/09/18 06:30 POC Glucose 111 MG/DL (70 - 105) H 08/06/18 18:32 Whole Bld Lactic Acid 1.32 mmol/L (0.60-1.99) 08/06/18 16:20 Calcium 9.1 mg/dL (8.6-10.3) 08/09/18 06:30 Total Bilirubin 0.8 mg/dL (0.3-1.0) 08/08/18 06:35 Direct Bilirubin 0.20 mg/dL (0.0-0.2) 08/08/18 06:35 AST 22 U/L (13-39) 08/08/18 06:35 ALT 11 U/L (7-52) 08/08/18 06:35 Alkaline Phosphatase 75 U/L (34-104) 08/08/18 06:35 Total Protein 6.2 gm/dL (6.0-8.3) 08/08/18 06:35 Albumin 3.5 gm/dL (4.2-5.5) L 08/08/18 06:35 Globulin 2.7 gm/dL 08/08/18 06:35 Albumin/Globulin Ratio 1.3 (1.0-1.8) 08/08/18 06:35 Urine Source CLEAN C 08/06/18 14:55 Urine Color YELLOW 08/06/18 14:55 Urine Clarity CLEAR (CLEAR) 08/06/18 14:55 Urine pH 6.0 (4.6 - 8.0) 08/06/18 14:55 Ur Specific [place] 1.020 (1.005-1.030) 08/06/18 14:55 Urine Protein NEGATIVE mg/dL (NEGATIVE) 08/06/18 14:55 Urine Glucose (UA) NEGATIVE mg/dL (NEGATIVE) 08/06/18 14:55 Urine Ketones TRACE mg/dL (NEGATIVE) 08/06/18 14:55 Urine Blood NEGATIVE (NEGATIVE) 08/06/18 14:55 Urine Nitrate NEGATIVE (NEGATIVE) 08/06/18 14:55 Urine Bilirubin NEGATIVE (NEGATIVE) 08/06/18 14:55 Urine Urobilinogen 0.2 E.U./dL (0.2 - 1.0) 08/06/18 14:55 Ur Leukocyte Esterase NEGATIVE (NEGATIVE) 08/06/18 14:55 Urine RBC 2-5 /hpf (0-5) H 08/06/18 14:55 Urine WBC 0-2 /hpf (0-5) 08/06/18 14:55 Ur Epithelial Cells OCCASIONAL /lpf (FEW) 08/06/18 14:55 Calcium Oxalate Crystal FEW /hpf 08/06/18 14:55 Urine Bacteria FEW /hpf (NONE SEEN) 08/06/18 14:55 HIV 1&2 Antibody Screen NEGATIVE (NEG) 08/07/18 06:30 TB (QFT) Gold In Tube 08/07/18 06:30 TB Test (QFT) Mitogen 08/07/18 06:30 TB Test (QFT) Antigen 08/07/18 06:30 TB Test TB - Nil 08/07/18 06:30 TB Test (QFT) Interp 08/07/18 06:30 - Physical Exam Vitals and I&O: Vital Signs Temp 98.4 F 08/10/18 08:00 Pulse 80 08/10/18 09:15 Resp 18 08/10/18 08:00 BP 146/81 08/10/18 09:15 Pulse Ox 97 08/10/18 08:00 Intake & Output 08/09/18 08/10/18 08/10/18 18:59 06:59 18:59 Intake Total 750 500 Output Total 1070 Balance 750 -570 Weight (lbs) 61.235 kg 61.235 kg Intake: Oral 750 500 Output: Urine 1070 Other: # Voids 3 # Bowel Movements 1 Stool Characteristics Soft Formed Brown Weight Source Bedscale Bedscale Active Medications: Current Medications Acetaminophen (Tylenol) 650 mg PO Q4H PRN PRN Reason: ELEVATED TEMP >99.9 Acetaminophen (Tylenol) 650 mg PO Q4H PRN PRN Reason: PAIN Ascorbic Acid (Vitamin C) 500 mg PO BID [facility] Stop: 10/06/18 08:59 Last Admin: 08/10/18 09:17 Dose: 500 mg Aspirin (Aspirin Chewable) 81 mg PO DAILY [facility] Stop: 10/06/18 08:59 Last Admin: 08/10/18 09:17 Dose: 81 mg Atorvastatin Calcium (Lipitor) 80 mg PO HS [facility]; Protocol Stop: 10/06/18 20:59 Last Admin: 08/09/18 21:01 Dose: 80 mg Benazepril HCl (Lotensin) 5 mg PO DAILY [facility] Stop: 10/06/18 08:59 Last Admin: 08/10/18 09:15 Dose: 5 mg Bisacodyl (Dulcolax 10 Mg Supp) 10 mg RC Q48H PRN PRN Reason: IF NO RELIEF FROM MOM Carbidopa/Levodopa (Sinemet 25mg-100 Mg) 1 tab PO TID [facility] Stop: 10/06/18 08:59 Last Admin: 08/10/18 13:43 Dose: 1 tab Escitalopram Oxalate (Lexapro) 5 mg PO DAILY [facility]; Protocol Stop: 10/06/18 08:59 Last Admin: 08/10/18 09:15 Dose: 5 mg Azithromycin 500 mg/ Sodium (Chloride) 250 mls @ 250 mls/hr IV Q24HR [facility] Stop: 10/06/18 15:59 Last Admin: 08/09/18 15:17 Dose: 250 mls/hr Ceftriaxone Sodium 1 gm/ (Sodium Chloride) 50 mls @ 100 mls/hr IV Q24HR [facility] Stop: 10/07/18 14:59 Last Admin: 08/09/18 15:17 Dose: 100 mls/hr Lorazepam (Ativan) 1 mg IM Q4HR PRN; Protocol PRN Reason: Agitation Stop: 10/05/18 23:34 Last Admin: 08/06/18 23:55 Dose: 1 mg Miscellaneous (Probiotic Screen) 1 ea MC PRN PRN PRN Reason: PROTOCOL Stop: 10/06/18 17:29 Physical Exam: 88 y/o male patient is congested and weak. General: weak, demented HEENT: NC/AT Neck: Supple, No JVD Lungs: rales, ronchi, other (R/o TB.) Cardiovascular: RRR, Normal S1 Abdomen: soft, non-tender Extremities: clear Neurological: no change, muscle weakness Internal Medicine Assmt/Plan - Assessment Assessment: Pneumonia. Weakness. Parkinson's disease. Dementia. BPH. Dyslipidemia. HTN. CAD. Pneumonia. R/o TB, airborne isolation. Leukocytosis. - Plan Plan: Continuation of care. Monitor vitals, low sodium diabetic diet and Labs. Continue present meds as directed. Respiratory treatments and Pulmonary support. Supplemental Oxygen. Aspiration precaution. Deep suctioning prn. Monitor mental status progression. Monitor behavioral health status. Continue Airborne Isolation. Safety precaution. Supportive care. Fall precaution, frequent nursing rounds, and as needed restraints to prevent fall. Continue present care management. Nutritional Asmnt/Malnutr-PDOC - Dietary Evaluation Malnutrition Findings (Please click <Entered> for more info): see orders.
--- NOTE | 2018-08-10 21:50 | Progress Notes ---
DATE: SUBJECTIVE: Chart was reviewed and the patient interviewed. Also discussed the patient's condition with the staff and reviewed records and labs. The patient is still depressed and is still isolative and withdrawn. The patient also is still in isolation. Minimum interaction. The patient shows no behavioral problems. He also continued to comply who is taking Lexapro 5 mg every day with no side effects. ASSESSMENT: The patient is still depressed. TREATMENT PLAN: Continue to monitor his behavior and his condition closely. Also, continue to work on his ineffective coping and also medical workup. JOB# [id number]
--- NOTE | 2018-08-11 02:50 | Infectious Disease Prog Note ---
Infectious Disease Subjective - Review of Systems Service Date: 08/10/18 Subjective: Doing the same, no fever. Infectious Disease Objective - Results Result Diagrams: 08/09/18 06:30 08/09/18 06:30 Recent Labs: Laboratory Last Values WBC 8.5 Th/cmm (4.8-10.8) 08/09/18 06:30 RBC 5.19 Mil/cmm (3.80-5.80) 08/09/18 06:30 Hgb 12.9 gm/dL (12-16) 08/09/18 06:30 Hct 40.6 % (41.0-60) L 08/09/18 06:30 MCV 78.2 fl (80-99) L 08/09/18 06:30 MCH 24.8 pg (27.0-31.0) L 08/09/18 06:30 MCHC Differential 31.8 pg (28.0-36.0) 08/09/18 06:30 RDW 15.7 % (11.5-20.0) 08/09/18 06:30 Plt Count 199 Th/cmm (150-400) 08/09/18 06:30 MPV 8.6 fl 08/09/18 06:30 Neutrophils % 64.1 % (40.0-80.0) 08/09/18 06:30 Lymphocytes % 20.8 % (20.0-50.0) 08/09/18 06:30 Monocytes % 10.7 % (2.0-10.0) H 08/09/18 06:30 Eosinophils % 4.0 % (0.0-5.0) 08/09/18 06:30 Basophils % 0.4 % (0.0-2.0) 08/09/18 06:30 PT 11.4 SECONDS (9.5-11.5) 08/06/18 16:20 INR 1.11 (0.5-1.4) 08/06/18 16:20 PTT (Actin FS) 26.7 SECONDS (26.0-38.0) 08/06/18 16:20 Sodium 142 mEq/L (136-145) 08/09/18 06:30 Potassium 4.2 mEq/L (3.5-5.1) 08/09/18 06:30 Chloride 107 mEq/L (98-107) 08/09/18 06:30 Carbon Dioxide 26.7 mEq/L (21.0-31.0) 08/09/18 06:30 Anion Gap 12.5 (7.0-16.0) 08/09/18 06:30 BUN 17 mg/dL (7-25) 08/09/18 06:30 Creatinine 0.9 mg/dL (0.7-1.3) 08/09/18 06:30 Est GFR ( Amer) TNP 08/09/18 06:30 Est GFR (Non-Af Amer) TNP 08/09/18 06:30 BUN/Creatinine Ratio 18.9 08/09/18 06:30 Glucose 109 mg/dL (70-105) H 08/09/18 06:30 POC Glucose 111 MG/DL (70 - 105) H 08/06/18 18:32 Whole Bld Lactic Acid 1.32 mmol/L (0.60-1.99) 08/06/18 16:20 Calcium 9.1 mg/dL (8.6-10.3) 08/09/18 06:30 Total Bilirubin 0.8 mg/dL (0.3-1.0) 08/08/18 06:35 Direct Bilirubin 0.20 mg/dL (0.0-0.2) 08/08/18 06:35 AST 22 U/L (13-39) 08/08/18 06:35 ALT 11 U/L (7-52) 08/08/18 06:35 Alkaline Phosphatase 75 U/L (34-104) 08/08/18 06:35 Total Protein 6.2 gm/dL (6.0-8.3) 08/08/18 06:35 Albumin 3.5 gm/dL (4.2-5.5) L 08/08/18 06:35 Globulin 2.7 gm/dL 08/08/18 06:35 Albumin/Globulin Ratio 1.3 (1.0-1.8) 08/08/18 06:35 Urine Source CLEAN C 08/06/18 14:55 Urine Color YELLOW 08/06/18 14:55 Urine Clarity CLEAR (CLEAR) 08/06/18 14:55 Urine pH 6.0 (4.6 - 8.0) 08/06/18 14:55 Ur Specific [place] 1.020 (1.005-1.030) 08/06/18 14:55 Urine Protein NEGATIVE mg/dL (NEGATIVE) 08/06/18 14:55 Urine Glucose (UA) NEGATIVE mg/dL (NEGATIVE) 08/06/18 14:55 Urine Ketones TRACE mg/dL (NEGATIVE) 08/06/18 14:55 Urine Blood NEGATIVE (NEGATIVE) 08/06/18 14:55 Urine Nitrate NEGATIVE (NEGATIVE) 08/06/18 14:55 Urine Bilirubin NEGATIVE (NEGATIVE) 08/06/18 14:55 Urine Urobilinogen 0.2 E.U./dL (0.2 - 1.0) 08/06/18 14:55 Ur Leukocyte Esterase NEGATIVE (NEGATIVE) 08/06/18 14:55 Urine RBC 2-5 /hpf (0-5) H 08/06/18 14:55 Urine WBC 0-2 /hpf (0-5) 08/06/18 14:55 Ur Epithelial Cells OCCASIONAL /lpf (FEW) 08/06/18 14:55 Calcium Oxalate Crystal FEW /hpf 08/06/18 14:55 Urine Bacteria FEW /hpf (NONE SEEN) 08/06/18 14:55 HIV 1&2 Antibody Screen NEGATIVE (NEG) 08/07/18 06:30 TB (QFT) Gold In Tube 08/07/18 06:30 TB Test (QFT) Mitogen 08/07/18 06:30 TB Test (QFT) Antigen 08/07/18 06:30 TB Test TB - Nil 08/07/18 06:30 TB Test (QFT) Interp 08/07/18 06:30 - Physical Exam Vitals and I&O: Vital Signs Temp 98 F 08/11/18 00:00 Pulse 98 08/11/18 00:00 Resp 18 08/11/18 00:00 BP 149/84 08/11/18 00:00 Pulse Ox 96 08/11/18 00:00 Intake & Output 08/10/18 08/10/18 08/11/18 06:59 18:59 06:59 Intake Total 500 375 Output Total 1070 Balance -570 375 Weight (lbs) 61.235 kg 61.235 kg Intake: Oral 500 375 Output: Urine 1070 Other: # Voids 4 Weight Source Bedscale Bedscale Active Medications: Current Medications Acetaminophen (Tylenol) 650 mg PO Q4H PRN PRN Reason: ELEVATED TEMP >99.9 Acetaminophen (Tylenol) 650 mg PO Q4H PRN PRN Reason: PAIN Ascorbic Acid (Vitamin C) 500 mg PO BID [facility] Stop: 10/06/18 08:59 Last Admin: 08/10/18 17:23 Dose: 500 mg Aspirin (Aspirin Chewable) 81 mg PO DAILY [facility] Stop: 10/06/18 08:59 Last Admin: 08/10/18 09:17 Dose: 81 mg Atorvastatin Calcium (Lipitor) 80 mg PO HS [facility]; Protocol Stop: 10/06/18 20:59 Last Admin: 08/10/18 21:19 Dose: 80 mg Benazepril HCl (Lotensin) 5 mg PO DAILY [facility] Stop: 10/06/18 08:59 Last Admin: 08/10/18 09:15 Dose: 5 mg Bisacodyl (Dulcolax 10 Mg Supp) 10 mg RC Q48H PRN PRN Reason: IF NO RELIEF FROM MOM Carbidopa/Levodopa (Sinemet 25mg-100 Mg) 1 tab PO TID [facility] Stop: 10/06/18 08:59 Last Admin: 08/10/18 21:19 Dose: 1 tab Escitalopram Oxalate (Lexapro) 5 mg PO DAILY [facility]; Protocol Stop: 10/06/18 08:59 Last Admin: 08/10/18 09:15 Dose: 5 mg Azithromycin 500 mg/ Sodium (Chloride) 250 mls @ 250 mls/hr IV Q24HR [facility] Stop: 10/06/18 15:59 Last Admin: 08/09/18 15:17 Dose: 250 mls/hr Ceftriaxone Sodium 1 gm/ (Sodium Chloride) 50 mls @ 100 mls/hr IV Q24HR [facility] Stop: 10/07/18 14:59 Last Admin: 08/09/18 15:17 Dose: 100 mls/hr Lorazepam (Ativan) 1 mg IM Q4HR PRN; Protocol PRN Reason: Agitation Stop: 10/05/18 23:34 Last Admin: 08/06/18 23:55 Dose: 1 mg Miscellaneous (Probiotic Screen) 1 ea MC PRN PRN PRN Reason: PROTOCOL Stop: 10/06/18 17:29 General: no acute distress, well developed, well nourished HEENT: atraumatic, normocephalic, PERRLA, EOMI Neck: supple, no thyromegaly Cardiovascular: S1S2, regular Lungs: clear to auscultation bilaterally, clear to percussion Abdomen: soft, no tender, no distended, no mass Extremities: no cyanosis, no clubbing, no edema Neurological: awake, alert, oriented Skin: intact Infectious Disease Assmt/Plan - Problem List Patient Problems: All Active Problems CHEST INFILTRATE WITH ELEVATED WBC'S (Acute) - Assessment Assessment: 1. Right upper lobe infiltrate. Differential includes a community-acquired pneumonia versus atypical pneumonia and rule out tuberculosis of the lung or pulmonary tuberculosis. ( AFB smear X 2/3 negative, and RUL infiltrates resolving). 2. Dementia. 3. Hypertension. 4. History of heart disease. 5. Dementia. 6. Hypothyroidism. - Plan Plan: Patient is refusing IV antibiotics, will change to po antibiotics: Levaquin. If the AFB 3/3 remians negative, may dc isolation. Nutritional Asmnt/Malnutr-PDOC - Dietary Evaluation Malnutrition Findings (Please click <Entered> for more info): Nutritional Asmnt/Malnutrition Start: 08/10/18 16: 58 Text: Status: Complete Freq: Protocol: Document 08/10/18 16:58 LCHENG (Rec: 08/10/18 17:05 LCHENG [id number]) Nutritional Asmnt/Malnutrition Patient General Information Nutritional Screening Moderate Risk Diagnosis upper lobe infiltration, PNA r /o TB Pertinent Medical Hx/Surgical Hx HTN, CAD, dyslipidmeia, dementia, parkinson's, BPH, CABG, dementia Subjective Information Pt seen in [facility], having lunch. Per EMR, PO itnake 75-100%. Current Diet Order/ Nutrition Support 2gm sodium Pertinent Medications vit C, lipitor Pertinent Labs 08/09 glucose 109 5/8 Cl 108, Glucose 115 Nutritional Hx/Data Height 1.63 m Height (Calculated Centimeters) 162.6 Current Weight (lbs) 61.235 kg Weight (Calculated Kilograms) 61.2 Weight (Calculated Grams) 21096.0 [place] Body Weight 130 Body Mass Index (BMI) 23.1 Weight Status Approriate GI Symptoms GI Symptoms None Last BM 08/09 Difficult in: None Skin Integrity/Comment: intact Current %PO Good (75-100%) Estimated Nutritional Goals BEE in Kcals: Using Current wt Calories/Kcals/Kg 25-30 Kcals Calculated 5688-6307 Protein: Using Current wt Protein g/k Protein Calculated 61 Fluid: ml 1525-1830ml (1ml/kcal) Nutritional Problem No current Nutrition Prob Problem n/A Malnutrition Alert Is there a minimum of two criteria No selected? Query Text:Check all the applicable criteria. A minimum of two criteria are recommended for diagnosis of either severe or non-severe malnutrition. Malnutrition Related to Morbid Obesity Malnutrition related to morbid obesity No Intervention/Recommendation Comments 1. Continue with 2gm Na diet as ordered. 2. Monitor PO intake, wt, labs and skin integrity 3. F/U as low risk in 7 days Expected Outcomes/Goals Expected Outcomes/Goals 1. PO intake to meet at least 75% of nutritional needs. 2. Wt stability, skin to remain intact, labs to approach WNL.
[2018-08-11] MEDS: Aspirin 81mg Chewable Tab PO SCH (08:52)
[2018-08-11] MEDS: Escitalopram Oxalate 5 mg Tab PO SCH (08:52)
--- NOTE | 2018-08-11 10:20 | Diagnostic Imaging Report ---
Exam: Portable chest x-ray HISTORY: Shortness of breath. COMPARISON: 07/10/2018 Findings: Portable examination of the chest at 0831 hours reviewed the study demonstrates unchanged appearance of the right basilar infiltrate and effusion. The left lung parenchyma is well aerated. IMPRESSION: Unchanged appearance of right basilar infiltrate and effusion.
[2018-08-11] MEDS ORDERED: Albuterol/Ipratropium Neb 3 ML AERS HHN PRN (14:22)
--- NOTE | 2018-08-11 21:37 | Progress Notes ---
DATE: 08/10/2018 PULMONARY PROGRESS NOTE SUBJECTIVE: The patient appears to be doing okay OBJECTIVE: VITAL SIGNS: Temperature is 98.4, pulse 80, respiration is 18, blood pressure 146/81, saturation 97%. CHEST: Good breath sounds, decreased rhonchi. HEART: Regular rate and rhythm. ABDOMEN: Soft. EXTREMITIES: No edema. LABORATORY DATA: WBC is 8.5, hemoglobin 12.9, hematocrit 40.6, platelets 199. Sodium 142, potassium 4.2, BUN 17, creatinine 0.9. IMPRESSION: 1. Respiratory failure. 2. Pneumonia. 3. TB was negative, less likely to be pulmonary tuberculosis. PLAN: Follow up chest x-ray, nebulizer treatment, antibiotics, and hope for discharge planning once off isolation. JOB# [id number]
--- NOTE | 2018-08-11 22:48 | Progress Notes ---
DATE: 08/11/2018 PULMONARY PROGRESS NOTE SUBJECTIVE: The patient appears to be doing okay. No distress, wants to take a shower. OBJECTIVE: VITAL SIGNS: Temperature 98.2, pulse 93, respiration is 18, blood pressure 142/72, O2 saturation 97%. CHEST: Good breath sounds. No wheezing. No crackles. HEART: Regular rhythm. ABDOMEN: Soft. LOWER EXTREMITIES: No edema. Chest x-ray showed resolving infiltrate right upper lobe area. IMPRESSION: Pneumonia, resolving with antibiotics. TB Gold is negative. PLAN: I think the patient should be off isolation and probably discontinue back to his facility with antibiotics. JOB# [id number]
--- NOTE | 2018-08-12 04:56 | Progress Notes ---
DATE: SUBJECTIVE: Chart reviewed and the patient interviewed. Also discussed the patient's condition with the staff and reviewed records and labs. The patient is still isolative and withdrawn and still seems to be depressed. The patient on the other hand had no major medical issues or problems. He is interacting appropriately with others and he is cooperative with his treatment. The patient also continues to take Lexapro 5 mg every day with no side effects. ASSESSMENT: The patient is calm and cooperative. TREATMENT PLAN: We will continue to monitor his behavior and his condition closely and continue adjusting psychotropic medications and followup. JOB# [id number]
[2018-08-12] MEDS: Aspirin 81mg Chewable Tab PO SCH (09:30)
[2018-08-12] MEDS: Escitalopram Oxalate 5 mg Tab PO SCH (09:30)
--- NOTE | 2018-08-12 10:05 | Internal Medicine Prog Note ---
Internal Medicine Subjective - Subjective Patient seen and examined:: chart reviewed Patient is:: awake, talking, confused, other (insolative, withdrawn ) Patient Complaints of:: congestion (hx of parkinson's disease.), cough, other ( Pneumonia.) Per staff patient has:: no adverse event, no episodes of fall Internal Medicine Objective - Results Result Diagrams: 08/09/18 06:30 08/09/18 06:30 Recent Labs: Laboratory Last Values WBC 8.5 Th/cmm (4.8-10.8) 08/09/18 06:30 RBC 5.19 Mil/cmm (3.80-5.80) 08/09/18 06:30 Hgb 12.9 gm/dL (12-16) 08/09/18 06:30 Hct 40.6 % (41.0-60) L 08/09/18 06:30 MCV 78.2 fl (80-99) L 08/09/18 06:30 MCH 24.8 pg (27.0-31.0) L 08/09/18 06:30 MCHC Differential 31.8 pg (28.0-36.0) 08/09/18 06:30 RDW 15.7 % (11.5-20.0) 08/09/18 06:30 Plt Count 199 Th/cmm (150-400) 08/09/18 06:30 MPV 8.6 fl 08/09/18 06:30 Neutrophils % 64.1 % (40.0-80.0) 08/09/18 06:30 Lymphocytes % 20.8 % (20.0-50.0) 08/09/18 06:30 Monocytes % 10.7 % (2.0-10.0) H 08/09/18 06:30 Eosinophils % 4.0 % (0.0-5.0) 08/09/18 06:30 Basophils % 0.4 % (0.0-2.0) 08/09/18 06:30 PT 11.4 SECONDS (9.5-11.5) 08/06/18 16:20 INR 1.11 (0.5-1.4) 08/06/18 16:20 PTT (Actin FS) 26.7 SECONDS (26.0-38.0) 08/06/18 16:20 Sodium 142 mEq/L (136-145) 08/09/18 06:30 Potassium 4.2 mEq/L (3.5-5.1) 08/09/18 06:30 Chloride 107 mEq/L (98-107) 08/09/18 06:30 Carbon Dioxide 26.7 mEq/L (21.0-31.0) 08/09/18 06:30 Anion Gap 12.5 (7.0-16.0) 08/09/18 06:30 BUN 17 mg/dL (7-25) 08/09/18 06:30 Creatinine 0.9 mg/dL (0.7-1.3) 08/09/18 06:30 Est GFR ( Amer) TNP 08/09/18 06:30 Est GFR (Non-Af Amer) TNP 08/09/18 06:30 BUN/Creatinine Ratio 18.9 08/09/18 06:30 Glucose 109 mg/dL (70-105) H 08/09/18 06:30 POC Glucose 111 MG/DL (70 - 105) H 08/06/18 18:32 Whole Bld Lactic Acid 1.32 mmol/L (0.60-1.99) 08/06/18 16:20 Calcium 9.1 mg/dL (8.6-10.3) 08/09/18 06:30 Total Bilirubin 0.8 mg/dL (0.3-1.0) 08/08/18 06:35 Direct Bilirubin 0.20 mg/dL (0.0-0.2) 08/08/18 06:35 AST 22 U/L (13-39) 08/08/18 06:35 ALT 11 U/L (7-52) 08/08/18 06:35 Alkaline Phosphatase 75 U/L (34-104) 08/08/18 06:35 Total Protein 6.2 gm/dL (6.0-8.3) 08/08/18 06:35 Albumin 3.5 gm/dL (4.2-5.5) L 08/08/18 06:35 Globulin 2.7 gm/dL 08/08/18 06:35 Albumin/Globulin Ratio 1.3 (1.0-1.8) 08/08/18 06:35 Urine Source CLEAN C 08/06/18 14:55 Urine Color YELLOW 08/06/18 14:55 Urine Clarity CLEAR (CLEAR) 08/06/18 14:55 Urine pH 6.0 (4.6 - 8.0) 08/06/18 14:55 Ur Specific [place] 1.020 (1.005-1.030) 08/06/18 14:55 Urine Protein NEGATIVE mg/dL (NEGATIVE) 08/06/18 14:55 Urine Glucose (UA) NEGATIVE mg/dL (NEGATIVE) 08/06/18 14:55 Urine Ketones TRACE mg/dL (NEGATIVE) 08/06/18 14:55 Urine Blood NEGATIVE (NEGATIVE) 08/06/18 14:55 Urine Nitrate NEGATIVE (NEGATIVE) 08/06/18 14:55 Urine Bilirubin NEGATIVE (NEGATIVE) 08/06/18 14:55 Urine Urobilinogen 0.2 E.U./dL (0.2 - 1.0) 08/06/18 14:55 Ur Leukocyte Esterase NEGATIVE (NEGATIVE) 08/06/18 14:55 Urine RBC 2-5 /hpf (0-5) H 08/06/18 14:55 Urine WBC 0-2 /hpf (0-5) 08/06/18 14:55 Ur Epithelial Cells OCCASIONAL /lpf (FEW) 08/06/18 14:55 Calcium Oxalate Crystal FEW /hpf 08/06/18 14:55 Urine Bacteria FEW /hpf (NONE SEEN) 08/06/18 14:55 HIV 1&2 Antibody Screen NEGATIVE (NEG) 08/07/18 06:30 TB (QFT) Gold In Tube 08/07/18 06:30 TB Test (QFT) Mitogen 08/07/18 06:30 TB Test (QFT) Antigen 08/07/18 06:30 TB Test TB - Nil 08/07/18 06:30 TB Test (QFT) Interp 08/07/18 06:30 - Physical Exam Vitals and I&O: Vital Signs Temp 98.9 F 08/12/18 08:00 Pulse 99 08/12/18 08:00 Resp 18 08/12/18 08:00 BP 114/70 08/12/18 08:00 Pulse Ox 97 08/12/18 08:00 Intake & Output 08/11/18 08/12/18 08/12/18 18:59 06:59 18:59 Intake Total 600 200 Output Total 600 Balance 600 -400 Weight (lbs) 61.235 kg 61.235 kg Intake: Oral 600 200 Output: Urine 600 Stool 0 Other: # Voids 3 # Bowel Movements 1 Stool Characteristics Soft Soft Soft Formed Formed Formed Brown Brown Brown Weight Source Bedscale Bedscale Active Medications: Current Medications Acetaminophen (Tylenol) 650 mg PO Q4H PRN PRN Reason: ELEVATED TEMP >99.9 Acetaminophen (Tylenol) 650 mg PO Q4H PRN PRN Reason: PAIN Albuterol/Ipratropium (Duoneb Neb) 3 ml HHN Q6HRT PRN PRN Reason: shortness of breath Stop: 10/10/18 18:59 Ascorbic Acid (Vitamin C) 500 mg PO BID [facility] Stop: 10/06/18 08:59 Last Admin: 08/11/18 16:34 Dose: 500 mg Aspirin (Aspirin Chewable) 81 mg PO DAILY [facility] Stop: 10/06/18 08:59 Last Admin: 08/11/18 08:52 Dose: 81 mg Atorvastatin Calcium (Lipitor) 80 mg PO HS [facility]; Protocol Stop: 10/06/18 20:59 Last Admin: 08/11/18 22:00 Dose: 80 mg Benazepril HCl (Lotensin) 5 mg PO DAILY [facility] Stop: 10/06/18 08:59 Last Admin: 08/11/18 08:52 Dose: 5 mg Bisacodyl (Dulcolax 10 Mg Supp) 10 mg RC Q48H PRN PRN Reason: IF NO RELIEF FROM MOM Carbidopa/Levodopa (Sinemet 25mg-100 Mg) 1 tab PO TID [facility] Stop: 10/06/18 08:59 Last Admin: 08/11/18 22:00 Dose: 1 tab Escitalopram Oxalate (Lexapro) 5 mg PO DAILY [facility]; Protocol Stop: 10/06/18 08:59 Last Admin: 08/11/18 08:52 Dose: 5 mg Levofloxacin (Levaquin) 500 mg PO DAILY [facility] Stop: 10/10/18 08:59 Last Admin: 08/11/18 08:52 Dose: 500 mg Lorazepam (Ativan) 1 mg IM Q4HR PRN; Protocol PRN Reason: Agitation Stop: 10/05/18 23:34 Last Admin: 08/06/18 23:55 Dose: 1 mg Miscellaneous (Probiotic Screen) 1 ea MC PRN PRN PRN Reason: PROTOCOL Stop: 10/06/18 17:29 Physical Exam: 88 y/o male patient is congested and weak. General: weak, demented HEENT: NC/AT Neck: Supple, No JVD Lungs: rales, ronchi, other (R/o TB.) Cardiovascular: RRR, Normal S1 Abdomen: soft, non-tender Extremities: clear Neurological: no change, muscle weakness Internal Medicine Assmt/Plan - Assessment Assessment: Pneumonia. Weakness. Parkinson's disease. Dementia. BPH. Dyslipidemia. HTN. CAD. Pneumonia. R/o TB, airborne isolation. Leukocytosis. - Plan Plan: Continuation of care. Monitor vitals, low sodium diabetic diet and Labs. Continue present meds as directed. Respiratory treatments and Pulmonary support. Supplemental Oxygen. Aspiration precaution. Deep suctioning prn. Monitor mental status progression. Monitor behavioral health status. Continue Airborne Isolation. Safety precaution. Supportive care. Fall precaution, frequent nursing rounds, and as needed restraints to prevent fall. Continue present care management. Nutritional Asmnt/Malnutr-PDOC - Dietary Evaluation Malnutrition Findings (Please click <Entered> for more info): Nutritional Asmnt/Malnutrition Start: 08/10/18 16: 58 Text: Status: Complete Freq: Protocol: Document 08/10/18 16:58 LCHENG (Rec: 08/10/18 17:05 [email or web address] [id number]) Nutritional Asmnt/Malnutrition Patient General Information Nutritional Screening Moderate Risk Diagnosis upper lobe infiltration, PNA r /o TB Pertinent Medical Hx/Surgical Hx HTN, CAD, dyslipidmeia, dementia, parkinson's, BPH, CABG, dementia Subjective Information Pt seen in airbone isolation room, having lunch. Per EMR, PO itnake 75-100%. Current Diet Order/ Nutrition Support 2gm sodium Pertinent Medications vit C, lipitor Pertinent Labs 08/09 glucose 109 5/8 Cl 108, Glucose 115 Nutritional Hx/Data Height 1.63 m Height (Calculated Centimeters) 162.6 Current Weight (lbs) 61.235 kg Weight (Calculated Kilograms) 61.2 Weight (Calculated Grams) 42989.0 [place] Body Weight 130 Body Mass Index (BMI) 23.1 Weight Status Approriate GI Symptoms GI Symptoms None Last BM 08/09 Difficult in: None Skin Integrity/Comment: intact Current %PO Good (75-100%) Estimated Nutritional Goals BEE in Kcals: Using Current wt Calories/Kcals/Kg 25-30 Kcals Calculated 4845-2110 Protein: Using Current wt Protein g/k Protein Calculated 61 Fluid: ml 1525-1830ml (1ml/kcal) Nutritional Problem No current Nutrition Prob Problem n/A Malnutrition Alert Is there a minimum of two criteria No selected? Query Text:Check all the applicable criteria. A minimum of two criteria are recommended for diagnosis of either severe or non-severe malnutrition. Malnutrition Related to Morbid Obesity Malnutrition related to morbid obesity No Intervention/Recommendation Comments 1. Continue with 2gm Na diet as ordered. 2. Monitor PO intake, wt, labs and skin integrity 3. F/U as low risk in 7 days Expected Outcomes/Goals Expected Outcomes/Goals 1. PO intake to meet at least 75% of nutritional needs. 2. Wt stability, skin to remain intact, labs to approach WNL.
--- NOTE | 2018-08-13 03:51 | Progress Notes ---
DATE: 08/12/2018 PULMONARY PROGRESS NOTE SUBJECTIVE: The patient appears to be doing okay, comfortable, no distress. OBJECTIVE: VITAL SIGNS: Temperature is 98.0, pulse 93, respirations 18, blood pressure 140/57, and saturation 100%. CHEST: Good breath sounds. No wheezing or crackles. HEART: Regular rate and rhythm. ABDOMEN: Soft. EXTREMITIES: No edema. IMPRESSION: 1. Pneumonia, resolved on x0ray. 2. Weakness. PLAN: Continue antibiotics, awaiting clearance to discontinue isolation, but can be discharged afterwards. JOB# [id number]
[2018-08-13] MEDS: Escitalopram Oxalate 5 mg Tab PO SCH (09:38)
[2018-08-13] MEDS: Aspirin 81mg Chewable Tab PO SCH (09:39)
--- NOTE | 2018-08-13 12:19 | Internal Medicine Prog Note ---
Internal Medicine Subjective - Subjective Service Date: 08/13/18 Patient seen and examined:: with staff Patient is:: awake, talking, confused Patient Complaints of:: congestion (hx of parkinson's disease.), cough, other ( Pneumonia resolved, was on antibiotics.) Per staff patient has:: no adverse event, no episodes of fall Internal Medicine Objective - Results Result Diagrams: 08/09/18 06:30 08/09/18 06:30 Recent Labs: Laboratory Last Values WBC 8.5 Th/cmm (4.8-10.8) 08/09/18 06:30 RBC 5.19 Mil/cmm (3.80-5.80) 08/09/18 06:30 Hgb 12.9 gm/dL (12-16) 08/09/18 06:30 Hct 40.6 % (41.0-60) L 08/09/18 06:30 MCV 78.2 fl (80-99) L 08/09/18 06:30 MCH 24.8 pg (27.0-31.0) L 08/09/18 06:30 MCHC Differential 31.8 pg (28.0-36.0) 08/09/18 06:30 RDW 15.7 % (11.5-20.0) 08/09/18 06:30 Plt Count 199 Th/cmm (150-400) 08/09/18 06:30 MPV 8.6 fl 08/09/18 06:30 Neutrophils % 64.1 % (40.0-80.0) 08/09/18 06:30 Lymphocytes % 20.8 % (20.0-50.0) 08/09/18 06:30 Monocytes % 10.7 % (2.0-10.0) H 08/09/18 06:30 Eosinophils % 4.0 % (0.0-5.0) 08/09/18 06:30 Basophils % 0.4 % (0.0-2.0) 08/09/18 06:30 PT 11.4 SECONDS (9.5-11.5) 08/06/18 16:20 INR 1.11 (0.5-1.4) 08/06/18 16:20 PTT (Actin FS) 26.7 SECONDS (26.0-38.0) 08/06/18 16:20 Sodium 142 mEq/L (136-145) 08/09/18 06:30 Potassium 4.2 mEq/L (3.5-5.1) 08/09/18 06:30 Chloride 107 mEq/L (98-107) 08/09/18 06:30 Carbon Dioxide 26.7 mEq/L (21.0-31.0) 08/09/18 06:30 Anion Gap 12.5 (7.0-16.0) 08/09/18 06:30 BUN 17 mg/dL (7-25) 08/09/18 06:30 Creatinine 0.9 mg/dL (0.7-1.3) 08/09/18 06:30 Est GFR ( Amer) TNP 08/09/18 06:30 Est GFR (Non-Af Amer) TNP 08/09/18 06:30 BUN/Creatinine Ratio 18.9 08/09/18 06:30 Glucose 109 mg/dL (70-105) H 08/09/18 06:30 POC Glucose 111 MG/DL (70 - 105) H 08/06/18 18:32 Whole Bld Lactic Acid 1.32 mmol/L (0.60-1.99) 08/06/18 16:20 Calcium 9.1 mg/dL (8.6-10.3) 08/09/18 06:30 Total Bilirubin 0.8 mg/dL (0.3-1.0) 08/08/18 06:35 Direct Bilirubin 0.20 mg/dL (0.0-0.2) 08/08/18 06:35 AST 22 U/L (13-39) 08/08/18 06:35 ALT 11 U/L (7-52) 08/08/18 06:35 Alkaline Phosphatase 75 U/L (34-104) 08/08/18 06:35 Total Protein 6.2 gm/dL (6.0-8.3) 08/08/18 06:35 Albumin 3.5 gm/dL (4.2-5.5) L 08/08/18 06:35 Globulin 2.7 gm/dL 08/08/18 06:35 Albumin/Globulin Ratio 1.3 (1.0-1.8) 08/08/18 06:35 Urine Source CLEAN C 08/06/18 14:55 Urine Color YELLOW 08/06/18 14:55 Urine Clarity CLEAR (CLEAR) 08/06/18 14:55 Urine pH 6.0 (4.6 - 8.0) 08/06/18 14:55 Ur Specific [place] 1.020 (1.005-1.030) 08/06/18 14:55 Urine Protein NEGATIVE mg/dL (NEGATIVE) 08/06/18 14:55 Urine Glucose (UA) NEGATIVE mg/dL (NEGATIVE) 08/06/18 14:55 Urine Ketones TRACE mg/dL (NEGATIVE) 08/06/18 14:55 Urine Blood NEGATIVE (NEGATIVE) 08/06/18 14:55 Urine Nitrate NEGATIVE (NEGATIVE) 08/06/18 14:55 Urine Bilirubin NEGATIVE (NEGATIVE) 08/06/18 14:55 Urine Urobilinogen 0.2 E.U./dL (0.2 - 1.0) 08/06/18 14:55 Ur Leukocyte Esterase NEGATIVE (NEGATIVE) 08/06/18 14:55 Urine RBC 2-5 /hpf (0-5) H 08/06/18 14:55 Urine WBC 0-2 /hpf (0-5) 08/06/18 14:55 Ur Epithelial Cells OCCASIONAL /lpf (FEW) 08/06/18 14:55 Calcium Oxalate Crystal FEW /hpf 08/06/18 14:55 Urine Bacteria FEW /hpf (NONE SEEN) 08/06/18 14:55 HIV 1&2 Antibody Screen NEGATIVE (NEG) 08/07/18 06:30 TB (QFT) Gold In Tube 08/07/18 06:30 TB Test (QFT) Mitogen 08/07/18 06:30 TB Test (QFT) Antigen 08/07/18 06:30 TB Test TB - Nil 08/07/18 06:30 TB Test (QFT) Interp 08/07/18 06:30 - Physical Exam Vitals and I&O: Vital Signs Temp 97.7 F 08/13/18 08:00 Pulse 84 08/13/18 09:38 Resp 19 08/13/18 08:00 BP 108/52 08/13/18 09:38 Pulse Ox 95 08/13/18 08:00 Intake & Output 08/12/18 08/13/18 08/13/18 18:59 06:59 18:59 Intake Total 400 200 Output Total 50 Balance 400 150 Weight (lbs) 61.235 kg 61.235 kg Intake: Oral 400 200 Output: Urine 50 Other: Stool Characteristics Soft Soft Formed Formed Brown Brown Weight Source Bedscale Bedscale Active Medications: Current Medications Acetaminophen (Tylenol) 650 mg PO Q4H PRN PRN Reason: ELEVATED TEMP >99.9 Acetaminophen (Tylenol) 650 mg PO Q4H PRN PRN Reason: PAIN Albuterol/Ipratropium (Duoneb Neb) 3 ml HHN Q6HRT PRN PRN Reason: shortness of breath Stop: 10/10/18 18:59 Ascorbic Acid (Vitamin C) 500 mg PO BID [facility] Stop: 10/06/18 08:59 Last Admin: 08/13/18 09:39 Dose: 500 mg Aspirin (Aspirin Chewable) 81 mg PO DAILY [facility] Stop: 10/06/18 08:59 Last Admin: 08/13/18 09:39 Dose: 81 mg Atorvastatin Calcium (Lipitor) 80 mg PO HS [facility]; Protocol Stop: 10/06/18 20:59 Last Admin: 08/12/18 20:21 Dose: 80 mg Benazepril HCl (Lotensin) 5 mg PO DAILY [facility] Stop: 10/06/18 08:59 Last Admin: 08/13/18 09:38 Dose: Not Given Bisacodyl (Dulcolax 10 Mg Supp) 10 mg RC Q48H PRN PRN Reason: IF NO RELIEF FROM MOM Carbidopa/Levodopa (Sinemet 25mg-100 Mg) 1 tab PO TID [facility] Stop: 10/06/18 08:59 Last Admin: 08/13/18 09:39 Dose: 1 tab Escitalopram Oxalate (Lexapro) 5 mg PO DAILY [facility]; Protocol Stop: 10/06/18 08:59 Last Admin: 08/13/18 09:38 Dose: 5 mg Levofloxacin (Levaquin) 500 mg PO DAILY [facility] Stop: 10/10/18 08:59 Last Admin: 08/13/18 09:38 Dose: 500 mg Lorazepam (Ativan) 1 mg IM Q4HR PRN; Protocol PRN Reason: Agitation Stop: 10/05/18 23:34 Last Admin: 08/06/18 23:55 Dose: 1 mg Miscellaneous (Probiotic Screen) 1 ea MC PRN PRN PRN Reason: PROTOCOL Stop: 10/06/18 17:29 Physical Exam: 88 y/o male patient has mild cough and still very weak. General: weak, demented HEENT: NC/AT Neck: Supple, No JVD Lungs: rales, ronchi, other (Tb ruled out.) Cardiovascular: RRR, Normal S1 Abdomen: soft, non-tender Extremities: clear Neurological: no change, muscle weakness Internal Medicine Assmt/Plan - Assessment Assessment: Pneumonia- resolved. Weakness. Parkinson's disease. Dementia. BPH. Dyslipidemia. HTN. CAD. Pneumonia. R/o TB, airborne isolation. Leukocytosis. - Plan Plan: Continuation of care. Monitor vitals, low sodium diabetic diet and Labs. Continue present meds as directed. Respiratory treatments and Pulmonary support. Supplemental Oxygen. Aspiration precaution. Deep suctioning prn. Monitor mental status progression. Monitor behavioral health status. Discontinue Airborne Isolation. Safety precaution. Supportive care. Fall precaution, frequent nursing rounds, and as needed restraints to prevent fall. Continue present care management. Nutritional Asmnt/Malnutr-PDOC - Dietary Evaluation Malnutrition Findings (Please click <Entered> for more info): Nutritional Asmnt/Malnutrition Start: 08/10/18 16: 58 Text: Status: Complete Freq: Protocol: Document 08/10/18 16:58 LCHENG (Rec: 08/10/18 17:05 LCHENG [email or web address]) Nutritional Asmnt/Malnutrition Patient General Information Nutritional Screening Moderate Risk Diagnosis upper lobe infiltration, PNA r /o TB Pertinent Medical Hx/Surgical Hx HTN, CAD, dyslipidmeia, dementia, parkinson's, BPH, CABG, dementia Subjective Information Pt seen in airbone isolation room, having lunch. Per EMR, PO itnake 75-100%. Current Diet Order/ Nutrition Support 2gm sodium Pertinent Medications vit C, lipitor Pertinent Labs 08/09 glucose 109 5/8 Cl 108, Glucose 115 Nutritional Hx/Data Height 1.63 m Height (Calculated Centimeters) 162.6 Current Weight (lbs) 61.235 kg Weight (Calculated Kilograms) 61.2 Weight (Calculated Grams) 96409.0 [place] Body Weight 130 Body Mass Index (BMI) 23.1 Weight Status Approriate GI Symptoms GI Symptoms None Last BM 08/09 Difficult in: None Skin Integrity/Comment: intact Current %PO Good (75-100%) Estimated Nutritional Goals BEE in Kcals: Using Current wt Calories/Kcals/Kg 25-30 Kcals Calculated 6135-0023 Protein: Using Current wt Protein g/k Protein Calculated 61 Fluid: ml 1525-1830ml (1ml/kcal) Nutritional Problem No current Nutrition Prob Problem n/A Malnutrition Alert Is there a minimum of two criteria No selected? Query Text:Check all the applicable criteria. A minimum of two criteria are recommended for diagnosis of either severe or non-severe malnutrition. Malnutrition Related to Morbid Obesity Malnutrition related to morbid obesity No Intervention/Recommendation Comments 1. Continue with 2gm Na diet as ordered. 2. Monitor PO intake, wt, labs and skin integrity 3. F/U as low risk in 7 days Expected Outcomes/Goals Expected Outcomes/Goals 1. PO intake to meet at least 75% of nutritional needs. 2. Wt stability, skin to remain intact, labs to approach WNL.
--- NOTE | 2018-08-13 13:19 | Diagnostic Imaging Report ---
4 double chest x-ray HISTORY: Pneumonia Compared with the prior exam of August 11, 2018, there is a poor inspiration. Pleural reaction again noted about the right lower hemithorax. This is consistent with pleural thickening noted on a CT scan of August 08, 2018. Surgical changes again seen. IMPRESSION: 1. No change in the pulmonary status since August 11, 2018 as noted above. No acute focal pulmonary parenchymal processes
--- NOTE | 2018-08-14 01:24 | Progress Notes ---
DATE: 08/13/2018 FOLLOWUP PROGRESS NOTE COVERING FOR: Dr. Anne. PROGRESS ON THE UNIT: Case discussed with staff of the patient, reviewed records. The patient is an 88-year-old male with a history of dementia with Parkinson's disease. The patient is admitted because of elevated white blood count, rule out pneumonia. The patient has been anxious, depressed. The patient was depressed. According to Dr. Anne, he kept closing his eyes during the interview, he did not answer most of the questions. He lives in a nursing facility in the [facility] and has been interacting minimally with others. He denies any intention to harm himself or others but has been depressed. The patient was diagnosed with depression. The patient was started on Lexapro. The patient continues to isolate himself, continues to be depressed. Apparently, his medical condition is stabilizing. He is interacting appropriately with staff, cooperative with his treatment. He has been compliant with medication with no side effects. He denies any intent to harm himself or anyone when I talked to him. No side effects with the medication. I would recommend the patient follow up with the psychiatrist upon discharge. Thank you very much for allowing me to participate in the care of this most interesting gentleman. JOB# [id number]
[2018-08-14] MEDS ORDERED: Rifampin 300 mg Cap PO SCH (09:00)
[2018-08-14] MEDS: Escitalopram Oxalate 5 mg Tab PO SCH (09:19)
[2018-08-14] MEDS: Aspirin 81mg Chewable Tab PO SCH (09:19)
--- NOTE | 2018-08-14 09:27 | Progress Notes ---
DATE: 08/13/2018 PULMONARY PROGRESS NOTE SUBJECTIVE: The patient appears to be okay except some nausea ____. OBJECTIVE: VITAL SIGNS: Temperature 97.6, pulse 82, respirations 18, blood pressure ____, and saturation 98%. CHEST: Good breath sounds. No wheezing or crackles. HEART: Regular rate and rhythm. ABDOMEN: Soft. EXTREMITIES: No edema. LABORATORY DATA: WBC is 8.5, hemoglobin 12.9, and platelets 199. Sodium 142, potassium 4.2, BUN 17, and creatinine 0.9. Last chest x-ray showed resolution of the pneumonia in right upper lobe. IMPRESSION: Pneumonia, resolved. TB Gold negative. No evidence of TB on AFB. The patient should be off isolation. There is no reason to keep this patient in isolation and can be discharged on oral antibiotics. JOB# [id number]
--- NOTE | 2018-08-14 14:15 | Progress Notes ---
DATE: 08/14/[address] Anne. Case was discussed with staff of the patient, reviewed records. The patient continues to have poor insight. He is demented, confused, continues to be unpredictable and impulsive. He covered Lexapro with no side effects, isolating himself, depressed. He denies any intent to harm himself or anyone. Denies any auditory or visual hallucination. No side effects of medication, no sedation, no nausea. The patient needs follow up with the psychiatrist upon discharge. Thank you very much for allowing me to participate in the care of this most interesting gentleman. JOB# [id number]
--- NOTE | 2018-08-14 23:13 | Internal Medicine Prog Note ---
Internal Medicine Subjective - Subjective Patient is:: awake, talking, confused Patient Complaints of:: congestion (hx of parkinson's disease.), cough, other ( Pneumonia resolved, was on antibiotics.) Per staff patient has:: no adverse event, no episodes of fall Internal Medicine Objective - Results Result Diagrams: 08/09/18 06:30 08/09/18 06:30 Recent Labs: Laboratory Last Values WBC 8.5 Th/cmm (4.8-10.8) 08/09/18 06:30 RBC 5.19 Mil/cmm (3.80-5.80) 08/09/18 06:30 Hgb 12.9 gm/dL (12-16) 08/09/18 06:30 Hct 40.6 % (41.0-60) L 08/09/18 06:30 MCV 78.2 fl (80-99) L 08/09/18 06:30 MCH 24.8 pg (27.0-31.0) L 08/09/18 06:30 MCHC Differential 31.8 pg (28.0-36.0) 08/09/18 06:30 RDW 15.7 % (11.5-20.0) 08/09/18 06:30 Plt Count 199 Th/cmm (150-400) 08/09/18 06:30 MPV 8.6 fl 08/09/18 06:30 Neutrophils % 64.1 % (40.0-80.0) 08/09/18 06:30 Lymphocytes % 20.8 % (20.0-50.0) 08/09/18 06:30 Monocytes % 10.7 % (2.0-10.0) H 08/09/18 06:30 Eosinophils % 4.0 % (0.0-5.0) 08/09/18 06:30 Basophils % 0.4 % (0.0-2.0) 08/09/18 06:30 PT 11.4 SECONDS (9.5-11.5) 08/06/18 16:20 INR 1.11 (0.5-1.4) 08/06/18 16:20 PTT (Actin FS) 26.7 SECONDS (26.0-38.0) 08/06/18 16:20 Sodium 142 mEq/L (136-145) 08/09/18 06:30 Potassium 4.2 mEq/L (3.5-5.1) 08/09/18 06:30 Chloride 107 mEq/L (98-107) 08/09/18 06:30 Carbon Dioxide 26.7 mEq/L (21.0-31.0) 08/09/18 06:30 Anion Gap 12.5 (7.0-16.0) 08/09/18 06:30 BUN 17 mg/dL (7-25) 08/09/18 06:30 Creatinine 0.9 mg/dL (0.7-1.3) 08/09/18 06:30 Est GFR ( Amer) TNP 08/09/18 06:30 Est GFR (Non-Af Amer) TNP 08/09/18 06:30 BUN/Creatinine Ratio 18.9 08/09/18 06:30 Glucose 109 mg/dL (70-105) H 08/09/18 06:30 POC Glucose 111 MG/DL (70 - 105) H 08/06/18 18:32 Whole Bld Lactic Acid 1.32 mmol/L (0.60-1.99) 08/06/18 16:20 Calcium 9.1 mg/dL (8.6-10.3) 08/09/18 06:30 Total Bilirubin 0.8 mg/dL (0.3-1.0) 08/08/18 06:35 Direct Bilirubin 0.20 mg/dL (0.0-0.2) 08/08/18 06:35 AST 22 U/L (13-39) 08/08/18 06:35 ALT 11 U/L (7-52) 08/08/18 06:35 Alkaline Phosphatase 75 U/L (34-104) 08/08/18 06:35 Total Protein 6.2 gm/dL (6.0-8.3) 08/08/18 06:35 Albumin 3.5 gm/dL (4.2-5.5) L 08/08/18 06:35 Globulin 2.7 gm/dL 08/08/18 06:35 Albumin/Globulin Ratio 1.3 (1.0-1.8) 08/08/18 06:35 Urine Source CLEAN C 08/06/18 14:55 Urine Color YELLOW 08/06/18 14:55 Urine Clarity CLEAR (CLEAR) 08/06/18 14:55 Urine pH 6.0 (4.6 - 8.0) 08/06/18 14:55 Ur Specific [place] 1.020 (1.005-1.030) 08/06/18 14:55 Urine Protein NEGATIVE mg/dL (NEGATIVE) 08/06/18 14:55 Urine Glucose (UA) NEGATIVE mg/dL (NEGATIVE) 08/06/18 14:55 Urine Ketones TRACE mg/dL (NEGATIVE) 08/06/18 14:55 Urine Blood NEGATIVE (NEGATIVE) 08/06/18 14:55 Urine Nitrate NEGATIVE (NEGATIVE) 08/06/18 14:55 Urine Bilirubin NEGATIVE (NEGATIVE) 08/06/18 14:55 Urine Urobilinogen 0.2 E.U./dL (0.2 - 1.0) 08/06/18 14:55 Ur Leukocyte Esterase NEGATIVE (NEGATIVE) 08/06/18 14:55 Urine RBC 2-5 /hpf (0-5) H 08/06/18 14:55 Urine WBC 0-2 /hpf (0-5) 08/06/18 14:55 Ur Epithelial Cells OCCASIONAL /lpf (FEW) 08/06/18 14:55 Calcium Oxalate Crystal FEW /hpf 08/06/18 14:55 Urine Bacteria FEW /hpf (NONE SEEN) 08/06/18 14:55 HIV 1&2 Antibody Screen NEGATIVE (NEG) 08/07/18 06:30 TB (QFT) Gold In Tube 08/07/18 06:30 TB Test (QFT) Mitogen 08/07/18 06:30 TB Test (QFT) Antigen 08/07/18 06:30 TB Test TB - Nil 08/07/18 06:30 TB Test (QFT) Interp 08/07/18 06:30 - Physical Exam Vitals and I&O: Vital Signs Temp 98.9 F 08/14/18 20:00 Pulse 79 08/14/18 20:04 Resp 18 08/14/18 20:04 BP 140/78 08/14/18 20:00 Pulse Ox 96 08/14/18 20:04 Intake & Output 08/14/18 08/14/18 08/15/18 06:59 18:59 06:59 Intake Total 100 580 Output Total 3 Balance 100 577 Weight (lbs) 61.235 kg 61.235 kg Intake: Oral 100 580 Output: Emesis 3 Other: # Voids 1 4 # Bowel Movements 1 Stool Characteristics Soft Soft Formed Formed Brown Brown Weight Source Bedscale Estimated Active Medications: Current Medications Acetaminophen (Tylenol) 650 mg PO Q4H PRN PRN Reason: ELEVATED TEMP >99.9 Acetaminophen (Tylenol) 650 mg PO Q4H PRN PRN Reason: PAIN Albuterol/Ipratropium (Duoneb Neb) 3 ml HHN Q6HRT PRN PRN Reason: shortness of breath Stop: 10/10/18 18:59 Ascorbic Acid (Vitamin C) 500 mg PO BID [facility] Stop: 10/06/18 08:59 Last Admin: 08/14/18 17:40 Dose: 500 mg Aspirin (Aspirin Chewable) 81 mg PO DAILY [facility] Stop: 10/06/18 08:59 Last Admin: 08/14/18 09:19 Dose: 81 mg Atorvastatin Calcium (Lipitor) 80 mg PO HS [facility]; Protocol Stop: 10/06/18 20:59 Last Admin: 08/14/18 20:49 Dose: 80 mg Benazepril HCl (Lotensin) 5 mg PO DAILY [facility] Stop: 10/06/18 08:59 Last Admin: 08/14/18 09:20 Dose: 5 mg Bisacodyl (Dulcolax 10 Mg Supp) 10 mg RC Q48H PRN PRN Reason: IF NO RELIEF FROM MOM Calcium Carbonate (Tums) 500 mg PO DAILY [facility] Stop: 10/12/18 21:59 Last Admin: 08/14/18 09:22 Dose: 500 mg Carbidopa/Levodopa (Sinemet 25mg-100 Mg) 1 tab PO TID [facility] Stop: 10/06/18 08:59 Last Admin: 08/14/18 20:50 Dose: 1 tab Escitalopram Oxalate (Lexapro) 5 mg PO DAILY [facility]; Protocol Stop: 10/06/18 08:59 Last Admin: 08/14/18 09:19 Dose: 5 mg Ethambutol HCl (Myambutol) 800 mg PO DAILY [facility] Stop: 10/13/18 08:59 Last Admin: 08/14/18 09:18 Dose: 800 mg Isoniazid (Inh) 300 mg PO DAILY [facility] Stop: 10/13/18 08:59 Last Admin: 08/14/18 09:18 Dose: 300 mg Levofloxacin (Levaquin) 250 mg PO DAILY [facility] Stop: 10/13/18 08:59 Last Admin: 08/14/18 09:19 Dose: 250 mg Miscellaneous (Probiotic Screen) 1 ea MC PRN PRN PRN Reason: PROTOCOL Stop: 10/06/18 17:29 Ondansetron HCl (Zofran Odt) 4 mg PO Q6H PRN PRN Reason: Nausea / Vomiting Stop: 10/13/18 14:36 Rifampin (Rifadin) 600 mg PO DAILY [facility] Stop: 10/14/18 08:59 Physical Exam: 88 y/o male patient has mild cough and still very weak. General: weak, demented HEENT: NC/AT Neck: Supple, No JVD Lungs: rales, ronchi, other (Tb ruled out.) Cardiovascular: RRR, Normal S1 Abdomen: soft, non-tender Extremities: clear Neurological: no change, muscle weakness Internal Medicine Assmt/Plan - Assessment Assessment: Pneumonia- resolved. Weakness. Parkinson's disease. Dementia. BPH. Dyslipidemia. HTN. CAD. Pneumonia. R/o TB, airborne isolation. Leukocytosis. - Plan Plan: Continuation of care. Monitor vitals, low sodium diabetic diet and Labs. Continue present meds as directed. Respiratory treatments and Pulmonary support. Supplemental Oxygen. Aspiration precaution. Deep suctioning prn. Monitor mental status progression. Monitor behavioral health status. Discontinue Airborne Isolation. Safety precaution. Supportive care. Fall precaution, frequent nursing rounds, and as needed restraints to prevent fall. Continue present care management. Nutritional Asmnt/Malnutr-PDOC - Dietary Evaluation Malnutrition Findings (Please click <Entered> for more info): Nutritional Asmnt/Malnutrition Start: 08/10/18 16: 58 Text: Status: Complete Freq: Protocol: Document 08/10/18 16:58 LCHENG (Rec: 08/10/18 17:05 LCHENG [id number]) Nutritional Asmnt/Malnutrition Patient General Information Nutritional Screening Moderate Risk Diagnosis upper lobe infiltration, PNA r /o TB Pertinent Medical Hx/Surgical Hx HTN, CAD, dyslipidmeia, dementia, parkinson's, BPH, CABG, dementia Subjective Information Pt seen in airbone isolation room, having lunch. Per EMR, PO itnake 75-100%. Current Diet Order/ Nutrition Support 2gm sodium Pertinent Medications vit C, lipitor Pertinent Labs 08/09 glucose 109 5/8 Cl 108, Glucose 115 Nutritional Hx/Data Height 1.63 m Height (Calculated Centimeters) 162.6 Current Weight (lbs) 61.235 kg Weight (Calculated Kilograms) 61.2 Weight (Calculated Grams) 92332.0 [place] Body Weight 130 Body Mass Index (BMI) 23.1 Weight Status Approriate GI Symptoms GI Symptoms None Last BM 08/09 Difficult in: None Skin Integrity/Comment: intact Current %PO Good (75-100%) Estimated Nutritional Goals BEE in Kcals: Using Current wt Calories/Kcals/Kg 25-30 Kcals Calculated 0643-7027 Protein: Using Current wt Protein g/k Protein Calculated 61 Fluid: ml 1525-1830ml (1ml/kcal) Nutritional Problem No current Nutrition Prob Problem n/A Malnutrition Alert Is there a minimum of two criteria No selected? Query Text:Check all the applicable criteria. A minimum of two criteria are recommended for diagnosis of either severe or non-severe malnutrition. Malnutrition Related to Morbid Obesity Malnutrition related to morbid obesity No Intervention/Recommendation Comments 1. Continue with 2gm Na diet as ordered. 2. Monitor PO intake, wt, labs and skin integrity 3. F/U as low risk in 7 days Expected Outcomes/Goals Expected Outcomes/Goals 1. PO intake to meet at least 75% of nutritional needs. 2. Wt stability, skin to remain intact, labs to approach WNL.
--- NOTE | 2018-08-15 03:03 | Infectious Disease Prog Note ---
Infectious Disease Subjective - Review of Systems Service Date: 08/14/18 Subjective: Doing the same, no fever. Infectious Disease Objective - Results Result Diagrams: 08/09/18 06:30 08/09/18 06:30 Recent Labs: Laboratory Last Values WBC 8.5 Th/cmm (4.8-10.8) 08/09/18 06:30 RBC 5.19 Mil/cmm (3.80-5.80) 08/09/18 06:30 Hgb 12.9 gm/dL (12-16) 08/09/18 06:30 Hct 40.6 % (41.0-60) L 08/09/18 06:30 MCV 78.2 fl (80-99) L 08/09/18 06:30 MCH 24.8 pg (27.0-31.0) L 08/09/18 06:30 MCHC Differential 31.8 pg (28.0-36.0) 08/09/18 06:30 RDW 15.7 % (11.5-20.0) 08/09/18 06:30 Plt Count 199 Th/cmm (150-400) 08/09/18 06:30 MPV 8.6 fl 08/09/18 06:30 Neutrophils % 64.1 % (40.0-80.0) 08/09/18 06:30 Lymphocytes % 20.8 % (20.0-50.0) 08/09/18 06:30 Monocytes % 10.7 % (2.0-10.0) H 08/09/18 06:30 Eosinophils % 4.0 % (0.0-5.0) 08/09/18 06:30 Basophils % 0.4 % (0.0-2.0) 08/09/18 06:30 PT 11.4 SECONDS (9.5-11.5) 08/06/18 16:20 INR 1.11 (0.5-1.4) 08/06/18 16:20 PTT (Actin FS) 26.7 SECONDS (26.0-38.0) 08/06/18 16:20 Sodium 142 mEq/L (136-145) 08/09/18 06:30 Potassium 4.2 mEq/L (3.5-5.1) 08/09/18 06:30 Chloride 107 mEq/L (98-107) 08/09/18 06:30 Carbon Dioxide 26.7 mEq/L (21.0-31.0) 08/09/18 06:30 Anion Gap 12.5 (7.0-16.0) 08/09/18 06:30 BUN 17 mg/dL (7-25) 08/09/18 06:30 Creatinine 0.9 mg/dL (0.7-1.3) 08/09/18 06:30 Est GFR ( Amer) TNP 08/09/18 06:30 Est GFR (Non-Af Amer) TNP 08/09/18 06:30 BUN/Creatinine Ratio 18.9 08/09/18 06:30 Glucose 109 mg/dL (70-105) H 08/09/18 06:30 POC Glucose 111 MG/DL (70 - 105) H 08/06/18 18:32 Whole Bld Lactic Acid 1.32 mmol/L (0.60-1.99) 08/06/18 16:20 Calcium 9.1 mg/dL (8.6-10.3) 08/09/18 06:30 Total Bilirubin 0.8 mg/dL (0.3-1.0) 08/08/18 06:35 Direct Bilirubin 0.20 mg/dL (0.0-0.2) 08/08/18 06:35 AST 22 U/L (13-39) 08/08/18 06:35 ALT 11 U/L (7-52) 08/08/18 06:35 Alkaline Phosphatase 75 U/L (34-104) 08/08/18 06:35 Total Protein 6.2 gm/dL (6.0-8.3) 08/08/18 06:35 Albumin 3.5 gm/dL (4.2-5.5) L 08/08/18 06:35 Globulin 2.7 gm/dL 08/08/18 06:35 Albumin/Globulin Ratio 1.3 (1.0-1.8) 08/08/18 06:35 Urine Source CLEAN C 08/06/18 14:55 Urine Color YELLOW 08/06/18 14:55 Urine Clarity CLEAR (CLEAR) 08/06/18 14:55 Urine pH 6.0 (4.6 - 8.0) 08/06/18 14:55 Ur Specific [place] 1.020 (1.005-1.030) 08/06/18 14:55 Urine Protein NEGATIVE mg/dL (NEGATIVE) 08/06/18 14:55 Urine Glucose (UA) NEGATIVE mg/dL (NEGATIVE) 08/06/18 14:55 Urine Ketones TRACE mg/dL (NEGATIVE) 08/06/18 14:55 Urine Blood NEGATIVE (NEGATIVE) 08/06/18 14:55 Urine Nitrate NEGATIVE (NEGATIVE) 08/06/18 14:55 Urine Bilirubin NEGATIVE (NEGATIVE) 08/06/18 14:55 Urine Urobilinogen 0.2 E.U./dL (0.2 - 1.0) 08/06/18 14:55 Ur Leukocyte Esterase NEGATIVE (NEGATIVE) 08/06/18 14:55 Urine RBC 2-5 /hpf (0-5) H 08/06/18 14:55 Urine WBC 0-2 /hpf (0-5) 08/06/18 14:55 Ur Epithelial Cells OCCASIONAL /lpf (FEW) 08/06/18 14:55 Calcium Oxalate Crystal FEW /hpf 08/06/18 14:55 Urine Bacteria FEW /hpf (NONE SEEN) 08/06/18 14:55 HIV 1&2 Antibody Screen NEGATIVE (NEG) 08/07/18 06:30 TB (QFT) Gold In Tube 08/07/18 06:30 TB Test (QFT) Mitogen 08/07/18 06:30 TB Test (QFT) Antigen 08/07/18 06:30 TB Test TB - Nil 08/07/18 06:30 TB Test (QFT) Interp 08/07/18 06:30 - Physical Exam Vitals and I&O: Vital Signs Temp 98.7 F 08/15/18 00:00 Pulse 91 08/15/18 00:00 Resp 18 08/15/18 00:00 BP 122/67 08/15/18 00:00 Pulse Ox 98 08/15/18 00:00 Intake & Output 08/14/18 08/14/18 08/15/18 06:59 18:59 06:59 Intake Total 100 580 Output Total 3 Balance 100 577 Weight (lbs) 61.235 kg 61.235 kg Intake: Oral 100 580 Output: Emesis 3 Other: # Voids 1 4 # Bowel Movements 1 Stool Characteristics Soft Soft Soft Formed Formed Formed Brown Brown Brown Weight Source Bedscale Estimated Active Medications: Current Medications Acetaminophen (Tylenol) 650 mg PO Q4H PRN PRN Reason: ELEVATED TEMP >99.9 Acetaminophen (Tylenol) 650 mg PO Q4H PRN PRN Reason: PAIN Albuterol/Ipratropium (Duoneb Neb) 3 ml HHN Q6HRT PRN PRN Reason: shortness of breath Stop: 10/10/18 18:59 Ascorbic Acid (Vitamin C) 500 mg PO BID [facility] Stop: 10/06/18 08:59 Last Admin: 08/14/18 17:40 Dose: 500 mg Aspirin (Aspirin Chewable) 81 mg PO DAILY [facility] Stop: 10/06/18 08:59 Last Admin: 08/14/18 09:19 Dose: 81 mg Atorvastatin Calcium (Lipitor) 80 mg PO HS [facility]; Protocol Stop: 10/06/18 20:59 Last Admin: 08/14/18 20:49 Dose: 80 mg Benazepril HCl (Lotensin) 5 mg PO DAILY [facility] Stop: 10/06/18 08:59 Last Admin: 08/14/18 09:20 Dose: 5 mg Bisacodyl (Dulcolax 10 Mg Supp) 10 mg RC Q48H PRN PRN Reason: IF NO RELIEF FROM MOM Calcium Carbonate (Tums) 500 mg PO DAILY [facility] Stop: 10/12/18 21:59 Last Admin: 08/14/18 09:22 Dose: 500 mg Carbidopa/Levodopa (Sinemet 25mg-100 Mg) 1 tab PO TID [facility] Stop: 10/06/18 08:59 Last Admin: 08/14/18 20:50 Dose: 1 tab Escitalopram Oxalate (Lexapro) 5 mg PO DAILY [facility]; Protocol Stop: 10/06/18 08:59 Last Admin: 08/14/18 09:19 Dose: 5 mg Ethambutol HCl (Myambutol) 800 mg PO DAILY [facility] Stop: 10/13/18 08:59 Last Admin: 08/14/18 09:18 Dose: 800 mg Isoniazid (Inh) 300 mg PO DAILY [facility] Stop: 10/13/18 08:59 Last Admin: 08/14/18 09:18 Dose: 300 mg Levofloxacin (Levaquin) 250 mg PO DAILY [facility] Stop: 10/13/18 08:59 Last Admin: 08/14/18 09:19 Dose: 250 mg Miscellaneous (Probiotic Screen) 1 ea MC PRN PRN PRN Reason: PROTOCOL Stop: 10/06/18 17:29 Ondansetron HCl (Zofran Odt) 4 mg PO Q6H PRN PRN Reason: Nausea / Vomiting Stop: 10/13/18 14:36 Rifampin (Rifadin) 600 mg PO DAILY [facility] Stop: 10/14/18 08:59 General: no acute distress, well developed, well nourished HEENT: atraumatic, normocephalic, PERRLA, EOMI Neck: supple, no thyromegaly, no lymphadenopathy Cardiovascular: S1S2, regular Lungs: clear to auscultation bilaterally, clear to percussion Abdomen: soft, no tender, no distended Extremities: no cyanosis, no clubbing, no edema Neurological: awake, alert, oriented Skin: intact Infectious Disease Assmt/Plan - Problem List Patient Problems: All Active Problems CHEST INFILTRATE WITH ELEVATED WBC'S (Acute) - Assessment Assessment: 1. Right upper lobe infiltrate. Differential includes a community-acquired pneumonia versus atypical pneumonia and rule out tuberculosis of the lung or pulmonary tuberculosis. ( AFB smear X 2/3 negative, and RUL infiltrates resolving). 2. Dementia. 3. Hypertension. 4. History of heart disease. 5. Dementia. 6. Hypothyroidism. - Plan Plan: Patient is refusing IV antibiotics, will change to po antibiotics: Levaquin. continue anti TB meds. Nutritional Asmnt/Malnutr-PDOC - Dietary Evaluation Malnutrition Findings (Please click <Entered> for more info): Nutritional Asmnt/Malnutrition Start: 08/10/18 16: 58 Text: Status: Complete Freq: Protocol: Document 08/10/18 16:58 LCHENG (Rec: 08/10/18 17:05 LCHENG [id number]) Nutritional Asmnt/Malnutrition Patient General Information Nutritional Screening Moderate Risk Diagnosis upper lobe infiltration, PNA r /o TB Pertinent Medical Hx/Surgical Hx HTN, CAD, dyslipidmeia, dementia, parkinson's, BPH, CABG, dementia Subjective Information Pt seen in airbone isolation room, having lunch. Per EMR, PO itnake 75-100%. Current Diet Order/ Nutrition Support 2gm sodium Pertinent Medications vit C, lipitor Pertinent Labs 08/09 glucose 109 /8 Cl 108, Glucose 115 Nutritional Hx/Data Height 1.63 m Height (Calculated Centimeters) 162.6 Current Weight (lbs) 61.235 kg Weight (Calculated Kilograms) 61.2 Weight (Calculated Grams) 42569.0 [place] Body Weight 130 Body Mass Index (BMI) 23.1 Weight Status Approriate GI Symptoms GI Symptoms None Last BM 5/9 Difficult in: None Skin Integrity/Comment: intact Current %PO Good (75-100%) Estimated Nutritional Goals BEE in Kcals: Using Current wt Calories/Kcals/Kg 25-30 Kcals Calculated 8398-0279 Protein: Using Current wt Protein g/k Protein Calculated 61 Fluid: ml 1525-1830ml (1ml/kcal) Nutritional Problem No current Nutrition Prob Problem n/A Malnutrition Alert Is there a minimum of two criteria No selected? Query Text:Check all the applicable criteria. A minimum of two criteria are recommended for diagnosis of either severe or non-severe malnutrition. Malnutrition Related to Morbid Obesity Malnutrition related to morbid obesity No Intervention/Recommendation Comments 1. Continue with 2gm Na diet as ordered. 2. Monitor PO intake, wt, labs and skin integrity 3. F/U as low risk in 7 days Expected Outcomes/Goals Expected Outcomes/Goals 1. PO intake to meet at least 75% of nutritional needs. 2. Wt stability, skin to remain intact, labs to approach WNL.
--- NOTE | 2018-08-15 04:22 | Progress Notes ---
DATE: 08/14/2018 SUBJECTIVE: The patient appears to be doing okay, in no distress. OBJECTIVE: VITAL SIGNS: Temperature 98.2, pulse 70, respiration 19, blood pressure 136/68, saturation 98%. CHEST: Good breath sounds. No wheezing or crackles. HEART: Regular rate and rhythm. ABDOMEN: Soft, no tenderness. EXTREMITIES: No edema. LABORATORY DATA: AFB has been negative. IMPRESSION: Pneumonia, resolved. PLAN: The patient can be discharged as soon as he is cleared from [facility]. JOB# [id number]
--- NOTE | 2018-08-15 07:40 | Progress Notes ---
DATE: 08/15/2018 SUBJECTIVE: Chart was reviewed and the patient interviewed. Also discussed the patient's condition with the staff and reviewed records and labs. The patient is still confused, but calm and cooperative with his treatment. The patient also seems to be less agitated and less irritable. Also trying to interact more with peers and with others. The patient also still seems to be depressed. Otherwise, no side effect of medications. The patient continued to take Lexapro 5 mg every day. ASSESSMENT: The patient is still confused, but not agitated. TREATMENT PLAN: Continue to monitor his behavior and his condition closely. Also, continue to work on ineffective coping and followup. JOB# [id number]
[2018-08-15] MEDS: Escitalopram Oxalate 5 mg Tab PO SCH (08:43)
[2018-08-15] MEDS: Aspirin 81mg Chewable Tab PO SCH (08:49)
[2018-08-15 15:42] LABS: CHLORIDE 104 mEq/L (98-107); SODIUM SERUM 139 mEq/L (136-145)
[2018-08-15 15:43] LABS: ALB/GLOB RATIO 0.9 (1.0-1.8); ALBUMIN 3.1 gm/dL (4.2-5.5); BUN - UREA NITROGEN 32 mg/dL (7-25); CALCIUM SERUM 9.8 mg/dL (8.6-10.3); CREATININE - SERUM 1.1 mg/dL (0.7-1.3); GLUCOSE 113 mg/dL (70-105); TOTAL PROTEIN,SERUM 6.7 gm/dL (6.0-8.3)
[2018-08-15 15:44] LABS: ALKALINE PHOSPHATASE 95 U/L (34-104); PHOSPHOROUS 2.9 mg/dL (2.5-5.0); SGOT 18 U/L (13-39); SGPT/ALT 19 U/L (7-52)
[2018-08-15 16:08] LABS: BILIRUBIN,DIRECT 0.31 mg/dL (0.0-0.2)
--- NOTE | 2018-08-15 20:14 | Internal Medicine Prog Note ---
Internal Medicine Subjective - Subjective Service Date: 08/15/18 Patient seen and examined:: with staff Patient is:: awake, talking, confused Patient Complaints of:: congestion (hx of parkinson's disease.), cough, other ( Pneumonia resolved, was on antibiotics.) Per staff patient has:: no adverse event, no episodes of fall, other (Patient is doing well.) Internal Medicine Objective - Results Result Diagrams: 08/09/18 06:30 08/15/18 12:35 Recent Labs: Laboratory Last Values WBC 8.5 Th/cmm (4.8-10.8) 08/09/18 06:30 RBC 5.19 Mil/cmm (3.80-5.80) 08/09/18 06:30 Hgb 12.9 gm/dL (12-16) 08/09/18 06:30 Hct 40.6 % (41.0-60) L 08/09/18 06:30 MCV 78.2 fl (80-99) L 08/09/18 06:30 MCH 24.8 pg (27.0-31.0) L 08/09/18 06:30 MCHC Differential 31.8 pg (28.0-36.0) 08/09/18 06:30 RDW 15.7 % (11.5-20.0) 08/09/18 06:30 Plt Count 199 Th/cmm (150-400) 08/09/18 06:30 MPV 8.6 fl 08/09/18 06:30 Neutrophils % 64.1 % (40.0-80.0) 08/09/18 06:30 Lymphocytes % 20.8 % (20.0-50.0) 08/09/18 06:30 Monocytes % 10.7 % (2.0-10.0) H 08/09/18 06:30 Eosinophils % 4.0 % (0.0-5.0) 08/09/18 06:30 Basophils % 0.4 % (0.0-2.0) 08/09/18 06:30 PT 11.4 SECONDS (9.5-11.5) 08/06/18 16:20 INR 1.11 (0.5-1.4) 08/06/18 16:20 PTT (Actin FS) 26.7 SECONDS (26.0-38.0) 08/06/18 16:20 Sodium 139 mEq/L (136-145) 08/15/18 12:35 Potassium 4.0 mEq/L (3.5-5.1) 08/15/18 12:35 Chloride 104 mEq/L (98-107) 08/15/18 12:35 Carbon Dioxide 21.0 mEq/L (21.0-31.0) 08/15/18 12:35 Anion Gap 18.0 (7.0-16.0) H 08/15/18 12:35 BUN 32 mg/dL (7-25) H 08/15/18 12:35 Creatinine 1.1 mg/dL (0.7-1.3) 08/15/18 12:35 Est GFR ( Amer) TNP 08/15/18 12:35 Est GFR (Non-Af Amer) TNP 08/15/18 12:35 BUN/Creatinine Ratio 29.1 08/15/18 12:35 Glucose 113 mg/dL (70-105) H 08/15/18 12:35 POC Glucose 111 MG/DL (70 - 105) H 08/06/18 18:32 Whole Bld Lactic Acid 1.32 mmol/L (0.60-1.99) 08/06/18 16:20 Calcium 9.8 mg/dL (8.6-10.3) 08/15/18 12:35 Phosphorus 2.9 mg/dL (2.5-5.0) 08/15/18 12:35 Total Bilirubin 1.0 mg/dL (0.3-1.0) 08/15/18 12:35 Direct Bilirubin 0.31 mg/dL (0.0-0.2) H 08/15/18 12:35 AST 18 U/L (13-39) 08/15/18 12:35 ALT 19 U/L (7-52) 08/15/18 12:35 Alkaline Phosphatase 95 U/L (34-104) 08/15/18 12:35 Total Protein 6.7 gm/dL (6.0-8.3) 08/15/18 12:35 Albumin 3.1 gm/dL (4.2-5.5) L 08/15/18 12:35 Globulin 3.6 gm/dL 08/15/18 12:35 Albumin/Globulin Ratio 0.9 (1.0-1.8) L 08/15/18 12:35 Urine Source CLEAN C 08/06/18 14:55 Urine Color YELLOW 08/06/18 14:55 Urine Clarity CLEAR (CLEAR) 08/06/18 14:55 Urine pH 6.0 (4.6 - 8.0) 08/06/18 14:55 Ur Specific [place] 1.020 (1.005-1.030) 08/06/18 14:55 Urine Protein NEGATIVE mg/dL (NEGATIVE) 08/06/18 14:55 Urine Glucose (UA) NEGATIVE mg/dL (NEGATIVE) 08/06/18 14:55 Urine Ketones TRACE mg/dL (NEGATIVE) 08/06/18 14:55 Urine Blood NEGATIVE (NEGATIVE) 08/06/18 14:55 Urine Nitrate NEGATIVE (NEGATIVE) 08/06/18 14:55 Urine Bilirubin NEGATIVE (NEGATIVE) 08/06/18 14:55 Urine Urobilinogen 0.2 E.U./dL (0.2 - 1.0) 08/06/18 14:55 Ur Leukocyte Esterase NEGATIVE (NEGATIVE) 08/06/18 14:55 Urine RBC 2-5 /hpf (0-5) H 08/06/18 14:55 Urine WBC 0-2 /hpf (0-5) 08/06/18 14:55 Ur Epithelial Cells OCCASIONAL /lpf (FEW) 08/06/18 14:55 Calcium Oxalate Crystal FEW /hpf 08/06/18 14:55 Urine Bacteria FEW /hpf (NONE SEEN) 08/06/18 14:55 HIV 1&2 Antibody Screen NEGATIVE (NEG) 08/07/18 06:30 TB (QFT) Gold In Tube 08/07/18 06:30 TB Test (QFT) Mitogen 08/07/18 06:30 TB Test (QFT) Antigen 08/07/18 06:30 TB Test TB - Nil 08/07/18 06:30 TB Test (QFT) Interp 08/07/18 06:30 - Physical Exam Vitals and I&O: Vital Signs Temp 98.2 F 08/15/18 19:54 Pulse 91 08/15/18 19:54 Resp 18 08/15/18 19:54 BP 118/66 08/15/18 19:54 Pulse Ox 96 08/15/18 19:54 Intake & Output 08/15/18 08/15/18 08/16/18 06:59 18:59 06:59 Intake Total 200 Balance 200 Weight (lbs) 61.235 kg Intake: Oral 200 Other: # Voids 2 Stool Characteristics Soft Soft Formed Formed Brown Brown Weight Source Estimated Active Medications: Current Medications Acetaminophen (Tylenol) 650 mg PO Q4H PRN PRN Reason: ELEVATED TEMP >99.9 Acetaminophen (Tylenol) 650 mg PO Q4H PRN PRN Reason: PAIN Albuterol/Ipratropium (Duoneb Neb) 3 ml HHN Q6HRT PRN PRN Reason: shortness of breath Stop: 10/10/18 18:59 Ascorbic Acid (Vitamin C) 500 mg PO BID [facility] Stop: 10/06/18 08:59 Last Admin: 08/15/18 16:15 Dose: 500 mg Aspirin (Aspirin Chewable) 81 mg PO DAILY [facility] Stop: 10/06/18 08:59 Last Admin: 08/15/18 08:49 Dose: 81 mg Atorvastatin Calcium (Lipitor) 80 mg PO HS [facility]; Protocol Stop: 10/06/18 20:59 Last Admin: 08/14/18 20:49 Dose: 80 mg Benazepril HCl (Lotensin) 5 mg PO DAILY [facility] Stop: 10/06/18 08:59 Last Admin: 08/15/18 08:43 Dose: 5 mg Bisacodyl (Dulcolax 10 Mg Supp) 10 mg RC Q48H PRN PRN Reason: IF NO RELIEF FROM MOM Calcium Carbonate (Tums) 500 mg PO DAILY [facility] Stop: 10/12/18 21:59 Last Admin: 08/15/18 08:43 Dose: 500 mg Carbidopa/Levodopa (Sinemet 25mg-100 Mg) 1 tab PO TID [facility] Stop: 10/06/18 08:59 Last Admin: 08/15/18 13:11 Dose: 1 tab Escitalopram Oxalate (Lexapro) 5 mg PO DAILY [facility]; Protocol Stop: 10/06/18 08:59 Last Admin: 08/15/18 08:43 Dose: 5 mg Ethambutol HCl (Myambutol) 800 mg PO DAILY [facility] Stop: 10/13/18 08:59 Last Admin: 08/15/18 08:43 Dose: 800 mg Isoniazid (Inh) 300 mg PO DAILY [facility] Stop: 10/13/18 08:59 Last Admin: 08/15/18 08:43 Dose: 300 mg Levofloxacin (Levaquin) 250 mg PO DAILY [facility] Stop: 10/13/18 08:59 Last Admin: 08/15/18 08:46 Dose: 250 mg Miscellaneous (Probiotic Screen) 1 ea MC PRN PRN PRN Reason: PROTOCOL Stop: 10/06/18 17:29 Ondansetron HCl (Zofran Odt) 4 mg PO Q6H PRN PRN Reason: Nausea / Vomiting Stop: 10/13/18 14:36 Pyridoxine HCl (Vitamin B6) 50 mg PO DAILY [facility] Stop: 10/14/18 11:58 Last Admin: 08/15/18 13:11 Dose: 50 mg Rifampin (Rifadin) 600 mg PO DAILY [facility] Stop: 10/14/18 08:59 Last Admin: 08/15/18 08:43 Dose: 600 mg Physical Exam: 88 y/o male patient has slight cough, Pneumonia has been treated and patient is doing better. General: weak, demented HEENT: NC/AT Neck: Supple, No JVD Lungs: rales, ronchi, other (Tb ruled out.) Cardiovascular: RRR, Normal S1 Abdomen: soft, non-tender Extremities: clear Neurological: no change, muscle weakness Internal Medicine Assmt/Plan - Assessment Assessment: Pneumonia- resolved. Weakness. Parkinson's disease. Dementia. BPH. Dyslipidemia. HTN. CAD. Leukocytosis. - Plan Plan: Continuation of care. Monitor vitals, low sodium diabetic diet and Labs. Continue present meds as directed. Respiratory treatments and Pulmonary support. Supplemental Oxygen. Aspiration precaution. Deep suctioning prn. Monitor mental status progression. Monitor behavioral health status. Discontinue Airborne Isolation. Safety precaution. Supportive care. Fall precaution, frequent nursing rounds, and as needed restraints to prevent fall. Continue present care management. Nutritional Asmnt/Malnutr-PDOC - Dietary Evaluation Malnutrition Findings (Please click <Entered> for more info): Nutritional Asmnt/Malnutrition Start: 08/10/18 16: 58 Text: Status: Complete Freq: Protocol: Document 08/10/18 16:58 LCHENG (Rec: 08/10/18 17:05 [email or web address] [id number]) Nutritional Asmnt/Malnutrition Patient General Information Nutritional Screening Moderate Risk Diagnosis upper lobe infiltration, PNA r /o TB Pertinent Medical Hx/Surgical Hx HTN, CAD, dyslipidmeia, dementia, parkinson's, BPH, CABG, dementia Subjective Information Pt seen in airbone isolation room, having lunch. Per EMR, PO itnake 75-100%. Current Diet Order/ Nutrition Support 2gm sodium Pertinent Medications vit C, lipitor Pertinent Labs 08/09 glucose 109 5/8 Cl 108, Glucose 115 Nutritional Hx/Data Height 1.63 m Height (Calculated Centimeters) 162.6 Current Weight (lbs) 61.235 kg Weight (Calculated Kilograms) 61.2 Weight (Calculated Grams) 12204.0 [place] Body Weight 130 Body Mass Index (BMI) 23.1 Weight Status Approriate GI Symptoms GI Symptoms None Last BM 08/09 Difficult in: None Skin Integrity/Comment: intact Current %PO Good (75-100%) Estimated Nutritional Goals BEE in Kcals: Using Current wt Calories/Kcals/Kg 25-30 Kcals Calculated 6478-7371 Protein: Using Current wt Protein g/k Protein Calculated 61 Fluid: ml 1525-1830ml (1ml/kcal) Nutritional Problem No current Nutrition Prob Problem n/A Malnutrition Alert Is there a minimum of two criteria No selected? Query Text:Check all the applicable criteria. A minimum of two criteria are recommended for diagnosis of either severe or non-severe malnutrition. Malnutrition Related to Morbid Obesity Malnutrition related to morbid obesity No Intervention/Recommendation Comments 1. Continue with 2gm Na diet as ordered. 2. Monitor PO intake, wt, labs and skin integrity 3. F/U as low risk in 7 days Expected Outcomes/Goals Expected Outcomes/Goals 1. PO intake to meet at least 75% of nutritional needs. 2. Wt stability, skin to remain intact, labs to approach WNL.
--- NOTE | 2018-08-15 22:15 | Progress Notes ---
DATE: 08/15/2018 PULMONARY PROGRESS NOTE SUBJECTIVE: The patient appears to be doing okay, no distress. OBJECTIVE: VITAL SIGNS: Temperature is 97.4, pulse 89, respiration is 19, blood pressure 135/71 and saturation 99%. CHEST: Good breath sounds. No wheezing, few rhonchi. HEART: Regular rhythm. ABDOMEN: Soft and nontender. EXTREMITIES: No edema. LABORATORY DATA: No recent labs. IMPRESSION: Right upper lobe pneumonia resolved on chest x-ray. TB Gold negative, AFB negative so far. The patient should be off isolation and discharged. JOB# [id number]
[2018-08-16 05:46] LABS: % EOSINOPHILS 2.3 % (0.0-5.0); % LYMPHOCYTES 22.7 % (20.0-50.0); % MONOCYTES 10.6 % (2.0-10.0); % NEUTROPHILS 64.4 % (40.0-80.0); EOSINOPHILE ABSOLUTE 0.2 Th/cmm (0.1-0.4); HEMATOCRIT 37.1 % (41.0-60); HEMOGLOBIN 12.3 gm/dL (12-16); MEAN CELL VOLUME 76.5 fl (80-99); MEAN CORPUSCULAR HEMOGLOBIN 25.3 pg (27.0-31.0); MEAN CORPUSCULAR HGB CONC 33.1 pg (28.0-36.0); MONOCYTE ABSOLUTE 0.9 Th/cmm (0.3-1.0); NEUTROPHILE ABSOLUTE 5.8 Th/cmm (1.8-8.0); PLATELET COUNT 191 Th/cmm (150-400); RED BLOOD COUNT 4.86 Mil/cmm (3.80-5.80); RED CELL DISTRIBUTION WIDTH 15.4 % (11.5-20.0); WHITE BLOOD COUNT 8.9 Th/cmm (4.8-10.8)
[2018-08-16 06:04] LABS: ALB/GLOB RATIO 1.4 (1.0-1.8); ALBUMIN 3.5 gm/dL (4.2-5.5); ALKALINE PHOSPHATASE 84 U/L (34-104); ANION GAP 11.3 (7.0-16.0); BILIRUBIN,TOTAL 1.3 mg/dL (0.3-1.0); BUN - UREA NITROGEN 29 mg/dL (7-25); CALCIUM SERUM 9.4 mg/dL (8.6-10.3); CARBON DIOXIDE 23.6 mEq/L (21.0-31.0); CHLORIDE 107 mEq/L (98-107); GLUCOSE 106 mg/dL (70-105); POTASSIUM SERUM 4.9 mEq/L (3.5-5.1); SGOT 19 U/L (13-39); SGPT/ALT 5 U/L (7-52); SODIUM SERUM 137 mEq/L (136-145); TOTAL PROTEIN,SERUM 6.1 gm/dL (6.0-8.3)
[2018-08-16] MEDS: Escitalopram Oxalate 5 mg Tab PO SCH (09:53)
[2018-08-16] MEDS: Aspirin 81mg Chewable Tab PO SCH (09:53)
--- NOTE | 2018-08-16 18:59 | Internal Medicine Prog Note ---
Internal Medicine Subjective - Subjective Service Date: 08/16/18 Patient is:: awake, talking, confused Patient Complaints of:: congestion (hx of parkinson's disease.), cough, other ( Pneumonia resolved, was on antibiotics.) Per staff patient has:: no adverse event, no episodes of fall, other (Patient is doing well.) Internal Medicine Objective - Results Result Diagrams: 08/16/18 05:35 08/16/18 05:35 Recent Labs: Laboratory Last Values WBC 8.9 Th/cmm (4.8-10.8) 08/16/18 05:35 RBC 4.86 Mil/cmm (3.80-5.80) 08/16/18 05:35 Hgb 12.3 gm/dL (12-16) 08/16/18 05:35 Hct 37.1 % (41.0-60) L 08/16/18 05:35 MCV 76.5 fl (80-99) L 08/16/18 05:35 MCH 25.3 pg (27.0-31.0) L 08/16/18 05:35 MCHC Differential 33.1 pg (28.0-36.0) 08/16/18 05:35 RDW 15.4 % (11.5-20.0) 08/16/18 05:35 Plt Count 191 Th/cmm (150-400) 08/16/18 05:35 MPV 9.0 fl 08/16/18 05:35 Neutrophils % 64.4 % (40.0-80.0) 08/16/18 05:35 Lymphocytes % 22.7 % (20.0-50.0) 08/16/18 05:35 Monocytes % 10.6 % (2.0-10.0) H 08/16/18 05:35 Eosinophils % 2.3 % (0.0-5.0) 08/16/18 05:35 Basophils % 0.0 % (0.0-2.0) 08/16/18 05:35 PT 11.4 SECONDS (9.5-11.5) 08/06/18 16:20 INR 1.11 (0.5-1.4) 08/06/18 16:20 PTT (Actin FS) 26.7 SECONDS (26.0-38.0) 08/06/18 16:20 Sodium 137 mEq/L (136-145) 08/16/18 05:35 Potassium 4.9 mEq/L (3.5-5.1) 08/16/18 05:35 Chloride 107 mEq/L (98-107) 08/16/18 05:35 Carbon Dioxide 23.6 mEq/L (21.0-31.0) 08/16/18 05:35 Anion Gap 11.3 (7.0-16.0) 08/16/18 05:35 BUN 29 mg/dL (7-25) H 08/16/18 05:35 Creatinine 1.0 mg/dL (0.7-1.3) 08/16/18 05:35 Est GFR ( Amer) TNP 08/16/18 05:35 Est GFR (Non-Af Amer) TNP 08/16/18 05:35 BUN/Creatinine Ratio 29.0 08/16/18 05:35 Glucose 106 mg/dL (70-105) H 08/16/18 05:35 POC Glucose 111 MG/DL (70 - 105) H 08/06/18 18:32 Whole Bld Lactic Acid 1.32 mmol/L (0.60-1.99) 08/06/18 16:20 Calcium 9.4 mg/dL (8.6-10.3) 08/16/18 05:35 Phosphorus 2.9 mg/dL (2.5-5.0) 08/15/18 12:35 Total Bilirubin 1.3 mg/dL (0.3-1.0) H 08/16/18 05:35 Direct Bilirubin 0.31 mg/dL (0.0-0.2) H 08/15/18 12:35 AST 19 U/L (13-39) 08/16/18 05:35 ALT 5 U/L (7-52) L 08/16/18 05:35 Alkaline Phosphatase 84 U/L (34-104) 08/16/18 05:35 Total Protein 6.1 gm/dL (6.0-8.3) 08/16/18 05:35 Albumin 3.5 gm/dL (4.2-5.5) L 08/16/18 05:35 Globulin 2.6 gm/dL 08/16/18 05:35 Albumin/Globulin Ratio 1.4 (1.0-1.8) 08/16/18 05:35 Urine Source CLEAN C 08/06/18 14:55 Urine Color YELLOW 08/06/18 14:55 Urine Clarity CLEAR (CLEAR) 08/06/18 14:55 Urine pH 6.0 (4.6 - 8.0) 08/06/18 14:55 Ur Specific [place] 1.020 (1.005-1.030) 08/06/18 14:55 Urine Protein NEGATIVE mg/dL (NEGATIVE) 08/06/18 14:55 Urine Glucose (UA) NEGATIVE mg/dL (NEGATIVE) 08/06/18 14:55 Urine Ketones TRACE mg/dL (NEGATIVE) 08/06/18 14:55 Urine Blood NEGATIVE (NEGATIVE) 08/06/18 14:55 Urine Nitrate NEGATIVE (NEGATIVE) 08/06/18 14:55 Urine Bilirubin NEGATIVE (NEGATIVE) 08/06/18 14:55 Urine Urobilinogen 0.2 E.U./dL (0.2 - 1.0) 08/06/18 14:55 Ur Leukocyte Esterase NEGATIVE (NEGATIVE) 08/06/18 14:55 Urine RBC 2-5 /hpf (0-5) H 08/06/18 14:55 Urine WBC 0-2 /hpf (0-5) 08/06/18 14:55 Ur Epithelial Cells OCCASIONAL /lpf (FEW) 08/06/18 14:55 Calcium Oxalate Crystal FEW /hpf 08/06/18 14:55 Urine Bacteria FEW /hpf (NONE SEEN) 08/06/18 14:55 HIV 1&2 Antibody Screen NEGATIVE (NEG) 08/07/18 06:30 L.pneumophila Antigen Negative (Negative) 08/14/18 17:33 TB (QFT) Gold In Tube 08/07/18 06:30 TB Test (QFT) Mitogen 08/07/18 06:30 TB Test (QFT) Antigen 08/07/18 06:30 TB Test TB - Nil 08/07/18 06:30 TB Test (QFT) Interp 08/07/18 06:30 - Physical Exam Vitals and I&O: Vital Signs Temp 97.4 F 08/16/18 15:34 Pulse 86 08/16/18 15:34 Resp 18 08/16/18 15:34 BP 124/56 08/16/18 15:34 Pulse Ox 95 08/16/18 15:34 Intake & Output 08/15/18 08/16/18 08/16/18 18:59 06:59 18:59 Intake Total 200 500 400 Output Total 1000 600 Balance 200 -500 -200 Weight (lbs) 135 lb 135 lb 135 lb Intake: Oral 200 500 400 Output: Urine 1000 600 Other: # Voids 2 3 3 Stool Characteristics Soft Soft Soft Formed Formed Formed Brown Brown Brown Weight Source Estimated Bedscale Bedscale Active Medications: Current Medications Acetaminophen (Tylenol) 650 mg PO Q4H PRN PRN Reason: ELEVATED TEMP >99.9 Acetaminophen (Tylenol) 650 mg PO Q4H PRN PRN Reason: PAIN Albuterol/Ipratropium (Duoneb Neb) 3 ml HHN Q6HRT PRN PRN Reason: shortness of breath Stop: 10/10/18 18:59 Ascorbic Acid (Vitamin C) 500 mg PO BID [facility] Stop: 10/06/18 08:59 Last Admin: 08/16/18 17:08 Dose: 500 mg Aspirin (Aspirin Chewable) 81 mg PO DAILY [facility] Stop: 10/06/18 08:59 Last Admin: 08/16/18 09:53 Dose: 81 mg Atorvastatin Calcium (Lipitor) 80 mg PO HS [facility]; Protocol Stop: 10/06/18 20:59 Last Admin: 08/15/18 20:22 Dose: 80 mg Benazepril HCl (Lotensin) 5 mg PO DAILY [facility] Stop: 10/06/18 08:59 Last Admin: 08/16/18 09:51 Dose: 5 mg Bisacodyl (Dulcolax 10 Mg Supp) 10 mg RC Q48H PRN PRN Reason: IF NO RELIEF FROM MOM Calcium Carbonate (Tums) 500 mg PO DAILY [facility] Stop: 10/12/18 21:59 Last Admin: 08/16/18 09:52 Dose: 500 mg Carbidopa/Levodopa (Sinemet 25mg-100 Mg) 1 tab PO TID [facility] Stop: 10/06/18 08:59 Last Admin: 08/16/18 13:38 Dose: 1 tab Escitalopram Oxalate (Lexapro) 5 mg PO DAILY [facility]; Protocol Stop: 10/06/18 08:59 Last Admin: 08/16/18 09:53 Dose: 5 mg Ethambutol HCl (Myambutol) 800 mg PO DAILY [facility] Stop: 10/13/18 08:59 Last Admin: 08/16/18 09:45 Dose: 800 mg Isoniazid (Inh) 300 mg PO DAILY [facility] Stop: 10/13/18 08:59 Last Admin: 08/16/18 09:45 Dose: 300 mg Levofloxacin (Levaquin) 250 mg PO DAILY [facility] Stop: 10/13/18 08:59 Last Admin: 08/16/18 09:53 Dose: 250 mg Miscellaneous (Probiotic Screen) 1 ea MC PRN PRN PRN Reason: PROTOCOL Stop: 10/06/18 17:29 Ondansetron HCl (Zofran Odt) 4 mg PO Q6H PRN PRN Reason: Nausea / Vomiting Stop: 10/13/18 14:36 Pyridoxine HCl (Vitamin B6) 50 mg PO DAILY [facility] Stop: 10/14/18 11:58 Last Admin: 08/16/18 09:52 Dose: 50 mg Rifampin (Rifadin) 600 mg PO DAILY [facility] Stop: 10/14/18 08:59 Last Admin: 08/16/18 09:45 Dose: 600 mg General: weak, demented HEENT: NC/AT Neck: Supple, No JVD Lungs: rales, ronchi, other (Tb ruled out.) Cardiovascular: RRR, Normal S1 Abdomen: soft, non-tender Extremities: clear Neurological: no change, muscle weakness Internal Medicine Assmt/Plan - Assessment Assessment: Pneumonia- resolved. Weakness. Parkinson's disease. Dementia. BPH. Dyslipidemia. HTN. CAD. Leukocytosis. - Plan Plan: continue tx as per ID am labs continue current plan of care Nutritional Asmnt/Malnutr-PDOC - Dietary Evaluation Malnutrition Findings (Please click <Entered> for more info): Nutritional Asmnt/Malnutrition Start: 08/10/18 16: 58 Text: Status: Complete Freq: Protocol: Document 08/10/18 16:58 TARAH (Rec: 08/10/18 17:05 TARAH [id number]) Nutritional Asmnt/Malnutrition Patient General Information Nutritional Screening Moderate Risk Diagnosis upper lobe infiltration, PNA r /o TB Pertinent Medical Hx/Surgical Hx HTN, CAD, dyslipidmeia, dementia, parkinson's, BPH, CABG, dementia Subjective Information Pt seen in airbone isolation room, having lunch. Per EMR, PO itnake 75-100%. Current Diet Order/ Nutrition Support 2gm sodium Pertinent Medications vit C, lipitor Pertinent Labs 08/09 glucose 109 5/8 Cl 108, Glucose 115 Nutritional Hx/Data Height 5 ft 4 in Height (Calculated Centimeters) 162.6 Current Weight (lbs) 135 lb Weight (Calculated Kilograms) 61.2 Weight (Calculated Grams) 42518.0 [place] Body Weight 130 Body Mass Index (BMI) 23.1 Weight Status Approriate GI Symptoms GI Symptoms None Last BM 08/09 Difficult in: None Skin Integrity/Comment: intact Current %PO Good (75-100%) Estimated Nutritional Goals BEE in Kcals: Using Current wt Calories/Kcals/Kg 25-30 Kcals Calculated 3169-6512 Protein: Using Current wt Protein g/k Protein Calculated 61 Fluid: ml 1525-1830ml (1ml/kcal) Nutritional Problem No current Nutrition Prob Problem n/A Malnutrition Alert Is there a minimum of two criteria No selected? Query Text:Check all the applicable criteria. A minimum of two criteria are recommended for diagnosis of either severe or non-severe malnutrition. Malnutrition Related to Morbid Obesity Malnutrition related to morbid obesity No Intervention/Recommendation Comments 1. Continue with 2gm Na diet as ordered. 2. Monitor PO intake, wt, labs and skin integrity 3. F/U as low risk in 7 days Expected Outcomes/Goals Expected Outcomes/Goals 1. PO intake to meet at least 75% of nutritional needs. 2. Wt stability, skin to remain intact, labs to approach WNL.
--- NOTE | 2018-08-17 04:41 | Progress Notes ---
DATE: 08/16/2018 SUBJECTIVE: The patient appears to be doing okay. OBJECTIVE: GENERAL: In no distress. VITAL SIGNS: Temperature 97.4, pulse 80, respirations 18, blood pressure 124/56, and saturation 97%. CHEST: Good breath sounds. No wheezing. No crackles. HEART: Regular rate and rhythm. ABDOMEN: Soft. EXTREMITIES: No edema. LABORATORY DATA: WBC is 8.9 and hemoglobin 12.3. Sodium is 137, potassium 4.9, BUN is 29, and creatinine 1.0. IMPRESSION: 1. Pneumonia, right upper lobe, resolved. 2. Rule out tuberculosis, so far an AFB is negative. TB Gold negative. PLAN: I think the patient should be off isolation, to be discharged to the awaiting healthcare Department clearance. JOB# [id number]
[2018-08-17 07:47] LABS: ALB/GLOB RATIO 1.3 (1.0-1.8); ALBUMIN 3.5 gm/dL (4.2-5.5); ALKALINE PHOSPHATASE 92 U/L (34-104); ANION GAP 10.6 (7.0-16.0); BUN - UREA NITROGEN 25 mg/dL (7-25); CALCIUM SERUM 9.7 mg/dL (8.6-10.3); CARBON DIOXIDE 25.7 mEq/L (21.0-31.0); CHLORIDE 104 mEq/L (98-107); GLUCOSE 115 mg/dL (70-105); POTASSIUM SERUM 4.3 mEq/L (3.5-5.1); SGOT 17 U/L (13-39); SGPT/ALT 12 U/L (7-52); SODIUM SERUM 136 mEq/L (136-145); TOTAL PROTEIN,SERUM 6.2 gm/dL (6.0-8.3)
[2018-08-17 07:51] LABS: % EOSINOPHILS 1.9 % (0.0-5.0); % LYMPHOCYTES 21.5 % (20.0-50.0); % MONOCYTES 8.8 % (2.0-10.0); % NEUTROPHILS 66.8 % (40.0-80.0); BASOPHILE ABSOLUTE 0.1 Th/cumm (0-0.2); EOSINOPHILE ABSOLUTE 0.2 Th/cmm (0.1-0.4); HEMATOCRIT 38.9 % (41.0-60); HEMOGLOBIN 12.5 gm/dL (12-16); LYMPHOCYTE ABSOLUTE 1.8 Th/cmm (1.5-3.0); MEAN CELL VOLUME 77.4 fl (80-99); MEAN CORPUSCULAR HEMOGLOBIN 24.8 pg (27.0-31.0); MEAN CORPUSCULAR HGB CONC 32.1 pg (28.0-36.0); MEAN PLATELET VOLUME 9.3 fl; MONOCYTE ABSOLUTE 0.7 Th/cmm (0.3-1.0); NEUTROPHILE ABSOLUTE 5.5 Th/cmm (1.8-8.0); PLATELET COUNT 212 Th/cmm (150-400); RED BLOOD COUNT 5.02 Mil/cmm (3.80-5.80); RED CELL DISTRIBUTION WIDTH 15.3 % (11.5-20.0); WHITE BLOOD COUNT 8.3 Th/cmm (4.8-10.8)
[2018-08-17] MEDS: Escitalopram Oxalate 5 mg Tab PO SCH (08:25)
[2018-08-17] MEDS: Aspirin 81mg Chewable Tab PO SCH (08:25)
--- NOTE | 2018-08-17 14:22 | Infectious Disease Prog Note ---
Infectious Disease Subjective - Review of Systems Service Date: 08/17/18 Subjective: Doing the same, no fever. Infectious Disease Objective - Results Result Diagrams: 08/17/18 07:10 08/17/18 07:10 Recent Labs: Laboratory Last Values WBC 8.3 Th/cmm (4.8-10.8) 08/17/18 07:10 RBC 5.02 Mil/cmm (3.80-5.80) 08/17/18 07:10 Hgb 12.5 gm/dL (12-16) 08/17/18 07:10 Hct 38.9 % (41.0-60) L 08/17/18 07:10 MCV 77.4 fl (80-99) L 08/17/18 07:10 MCH 24.8 pg (27.0-31.0) L 08/17/18 07:10 MCHC Differential 32.1 pg (28.0-36.0) 08/17/18 07:10 RDW 15.3 % (11.5-20.0) 08/17/18 07:10 Plt Count 212 Th/cmm (150-400) 08/17/18 07:10 MPV 9.3 fl 08/17/18 07:10 Neutrophils % 66.8 % (40.0-80.0) 08/17/18 07:10 Lymphocytes % 21.5 % (20.0-50.0) 08/17/18 07:10 Monocytes % 8.8 % (2.0-10.0) 08/17/18 07:10 Eosinophils % 1.9 % (0.0-5.0) 08/17/18 07:10 Basophils % 1.0 % (0.0-2.0) 08/17/18 07:10 PT 11.4 SECONDS (9.5-11.5) 08/06/18 16:20 INR 1.11 (0.5-1.4) 08/06/18 16:20 PTT (Actin FS) 26.7 SECONDS (26.0-38.0) 08/06/18 16:20 Sodium 136 mEq/L (136-145) 08/17/18 07:10 Potassium 4.3 mEq/L (3.5-5.1) 08/17/18 07:10 Chloride 104 mEq/L (98-107) 08/17/18 07:10 Carbon Dioxide 25.7 mEq/L (21.0-31.0) 08/17/18 07:10 Anion Gap 10.6 (7.0-16.0) 08/17/18 07:10 BUN 25 mg/dL (7-25) 08/17/18 07:10 Creatinine 1.0 mg/dL (0.7-1.3) 08/17/18 07:10 Est GFR ( Amer) TNP 08/17/18 07:10 Est GFR (Non-Af Amer) TNP 08/17/18 07:10 BUN/Creatinine Ratio 25.0 08/17/18 07:10 Glucose 115 mg/dL (70-105) H 08/17/18 07:10 POC Glucose 111 MG/DL (70 - 105) H 08/06/18 18:32 Whole Bld Lactic Acid 1.32 mmol/L (0.60-1.99) 08/06/18 16:20 Calcium 9.7 mg/dL (8.6-10.3) 08/17/18 07:10 Phosphorus 2.9 mg/dL (2.5-5.0) 08/15/18 12:35 Total Bilirubin 1.0 mg/dL (0.3-1.0) 08/17/18 07:10 Direct Bilirubin 0.31 mg/dL (0.0-0.2) H 08/15/18 12:35 AST 17 U/L (13-39) 08/17/18 07:10 ALT 12 U/L (7-52) 08/17/18 07:10 Alkaline Phosphatase 92 U/L (34-104) 08/17/18 07:10 Total Protein 6.2 gm/dL (6.0-8.3) 08/17/18 07:10 Albumin 3.5 gm/dL (4.2-5.5) L 08/17/18 07:10 Globulin 2.7 gm/dL 08/17/18 07:10 Albumin/Globulin Ratio 1.3 (1.0-1.8) 08/17/18 07:10 Urine Source CLEAN C 08/06/18 14:55 Urine Color YELLOW 08/06/18 14:55 Urine Clarity CLEAR (CLEAR) 08/06/18 14:55 Urine pH 6.0 (4.6 - 8.0) 08/06/18 14:55 Ur Specific [place] 1.020 (1.005-1.030) 08/06/18 14:55 Urine Protein NEGATIVE mg/dL (NEGATIVE) 08/06/18 14:55 Urine Glucose (UA) NEGATIVE mg/dL (NEGATIVE) 08/06/18 14:55 Urine Ketones TRACE mg/dL (NEGATIVE) 08/06/18 14:55 Urine Blood NEGATIVE (NEGATIVE) 08/06/18 14:55 Urine Nitrate NEGATIVE (NEGATIVE) 08/06/18 14:55 Urine Bilirubin NEGATIVE (NEGATIVE) 08/06/18 14:55 Urine Urobilinogen 0.2 E.U./dL (0.2 - 1.0) 08/06/18 14:55 Ur Leukocyte Esterase NEGATIVE (NEGATIVE) 08/06/18 14:55 Urine RBC 2-5 /hpf (0-5) H 08/06/18 14:55 Urine WBC 0-2 /hpf (0-5) 08/06/18 14:55 Ur Epithelial Cells OCCASIONAL /lpf (FEW) 08/06/18 14:55 Calcium Oxalate Crystal FEW /hpf 08/06/18 14:55 Urine Bacteria FEW /hpf (NONE SEEN) 08/06/18 14:55 HIV 1&2 Antibody Screen NEGATIVE (NEG) 08/07/18 06:30 L.pneumophila Antigen Negative (Negative) 08/14/18 17:33 TB (QFT) Gold In Tube 08/07/18 06:30 TB Test (QFT) Mitogen 08/07/18 06:30 TB Test (QFT) Antigen 08/07/18 06:30 TB Test TB - Nil 08/07/18 06:30 TB Test (QFT) Interp 08/07/18 06:30 - Physical Exam Vitals and I&O: Vital Signs Temp 97.7 F 08/17/18 12:00 Pulse 96 08/17/18 12:00 Resp 18 08/17/18 12:00 BP 106/58 08/17/18 12:00 Pulse Ox 96 08/17/18 12:00 Intake & Output 08/16/18 08/17/18 08/17/18 18:59 06:59 18:59 Intake Total 400 Output Total 600 350 Balance -200 -350 Weight (lbs) 61.235 kg 61.235 kg Intake: Oral 400 Output: Urine 600 350 Other: # Voids 3 # Bowel Movements 0 Stool Characteristics Soft Soft Soft Formed Formed Formed Brown Brown Brown Weight Source Bedscale Bedscale Active Medications: Current Medications Acetaminophen (Tylenol) 650 mg PO Q4H PRN PRN Reason: ELEVATED TEMP >99.9 Acetaminophen (Tylenol) 650 mg PO Q4H PRN PRN Reason: PAIN Albuterol/Ipratropium (Duoneb Neb) 3 ml HHN Q6HRT PRN PRN Reason: shortness of breath Stop: 10/10/18 18:59 Ascorbic Acid (Vitamin C) 500 mg PO BID [facility] Stop: 10/06/18 08:59 Last Admin: 08/17/18 08:24 Dose: 500 mg Aspirin (Aspirin Chewable) 81 mg PO DAILY [facility] Stop: 10/06/18 08:59 Last Admin: 08/17/18 08:25 Dose: 81 mg Atorvastatin Calcium (Lipitor) 80 mg PO HS [facility]; Protocol Stop: 10/06/18 20:59 Last Admin: 08/16/18 20:29 Dose: 80 mg Benazepril HCl (Lotensin) 5 mg PO DAILY [facility] Stop: 10/06/18 08:59 Last Admin: 08/17/18 08:24 Dose: Not Given Bisacodyl (Dulcolax 10 Mg Supp) 10 mg RC Q48H PRN PRN Reason: IF NO RELIEF FROM MOM Calcium Carbonate (Tums) 500 mg PO DAILY [facility] Stop: 10/12/18 21:59 Last Admin: 08/17/18 08:24 Dose: 500 mg Carbidopa/Levodopa (Sinemet 25mg-100 Mg) 1 tab PO TID [facility] Stop: 10/06/18 08:59 Last Admin: 08/17/18 08:25 Dose: 1 tab Escitalopram Oxalate (Lexapro) 5 mg PO DAILY [facility]; Protocol Stop: 10/06/18 08:59 Last Admin: 08/17/18 08:25 Dose: 5 mg Ethambutol HCl (Myambutol) 800 mg PO DAILY [facility] Stop: 10/13/18 08:59 Last Admin: 08/17/18 08:26 Dose: 800 mg Isoniazid (Inh) 300 mg PO DAILY [facility] Stop: 10/13/18 08:59 Last Admin: 05/17/19 08:26 Dose: 300 mg Levofloxacin (Levaquin) 250 mg PO DAILY [facility] Stop: 10/13/18 08:59 Last Admin: 08/17/18 08:25 Dose: 250 mg Miscellaneous (Probiotic Screen) 1 ea MC PRN PRN PRN Reason: PROTOCOL Stop: 10/06/18 17:29 Ondansetron HCl (Zofran Odt) 4 mg PO Q6H PRN PRN Reason: Nausea / Vomiting Stop: 10/13/18 14:36 Pyridoxine HCl (Vitamin B6) 50 mg PO DAILY [facility] Stop: 10/14/18 11:58 Last Admin: 08/17/18 08:25 Dose: 50 mg Rifampin (Rifadin) 600 mg PO DAILY [facility] Stop: 10/14/18 08:59 Last Admin: 08/17/18 08:26 Dose: 600 mg General: no acute distress, well developed, well nourished HEENT: atraumatic, normocephalic, PERRLA Neck: supple, no thyromegaly Cardiovascular: S1S2, regular Lungs: clear to auscultation bilaterally, clear to percussion Abdomen: soft, no tender, no distended Extremities: no cyanosis, no clubbing, no edema Neurological: awake, alert, oriented Skin: intact Infectious Disease Assmt/Plan - Problem List Patient Problems: All Active Problems CHEST INFILTRATE WITH ELEVATED WBC'S (Acute) - Assessment Assessment: 1. Right upper lobe infiltrate. Differential includes a community-acquired pneumonia versus atypical pneumonia and rule out tuberculosis of the lung or pulmonary tuberculosis. ( AFB smear X 2/3 negative, and RUL infiltrates resolving). 2. Dementia. 3. Hypertension. 4. History of heart disease. 5. Dementia. 6. Hypothyroidism. - Plan Plan: Patient is refusing IV antibiotics, will Continue po antibiotics: Levaquin. continue anti TB meds. DC plan as per the public health. Nutritional Asmnt/Malnutr-PDOC - Dietary Evaluation Malnutrition Findings (Please click <Entered> for more info): Nutritional Asmnt/Malnutrition Start: 08/10/18 16: 58 Text: Status: Complete Freq: Protocol: Document 08/10/18 16:58 LCHENG (Rec: 08/10/18 17:05 [email or web address]) Nutritional Asmnt/Malnutrition Patient General Information Nutritional Screening Moderate Risk Diagnosis upper lobe infiltration, PNA r /o TB Pertinent Medical Hx/Surgical Hx HTN, CAD, dyslipidmeia, dementia, parkinson's, BPH, CABG, dementia Subjective Information Pt seen in airbone isolation room, having lunch. Per EMR, PO itnake 75-100%. Current Diet Order/ Nutrition Support 2gm sodium Pertinent Medications vit C, lipitor Pertinent Labs 08/09 glucose 109 5/8 Cl 108, Glucose 115 Nutritional Hx/Data Height 1.63 m Height (Calculated Centimeters) 162.6 Current Weight (lbs) 61.235 kg Weight (Calculated Kilograms) 61.2 Weight (Calculated Grams) 24012.0 [place] Body Weight 130 Body Mass Index (BMI) 23.1 Weight Status Approriate GI Symptoms GI Symptoms None Last BM 08/09 Difficult in: None Skin Integrity/Comment: intact Current %PO Good (75-100%) Estimated Nutritional Goals BEE in Kcals: Using Current wt Calories/Kcals/Kg 25-30 Kcals Calculated 5660-6324 Protein: Using Current wt Protein g/k Protein Calculated 61 Fluid: ml 1525-1830ml (1ml/kcal) Nutritional Problem No current Nutrition Prob Problem n/A Malnutrition Alert Is there a minimum of two criteria No selected? Query Text:Check all the applicable criteria. A minimum of two criteria are recommended for diagnosis of either severe or non-severe malnutrition. Malnutrition Related to Morbid Obesity Malnutrition related to morbid obesity No Intervention/Recommendation Comments 1. Continue with 2gm Na diet as ordered. 2. Monitor PO intake, wt, labs and skin integrity 3. F/U as low risk in 7 days Expected Outcomes/Goals Expected Outcomes/Goals 1. PO intake to meet at least 75% of nutritional needs. 2. Wt stability, skin to remain intact, labs to approach WNL.
[2018-08-18 06:38] LABS: % BASOPHILS 0.3 % (0.0-2.0); % EOSINOPHILS 1.9 % (0.0-5.0); % LYMPHOCYTES 21.3 % (20.0-50.0); % NEUTROPHILS 69.5 % (40.0-80.0); EOSINOPHILE ABSOLUTE 0.2 Th/cmm (0.1-0.4); HEMATOCRIT 38.5 % (41.0-60); HEMOGLOBIN 12.5 gm/dL (12-16); LYMPHOCYTE ABSOLUTE 1.9 Th/cmm (1.5-3.0); MEAN CELL VOLUME 76.7 fl (80-99); MEAN CORPUSCULAR HGB CONC 32.5 pg (28.0-36.0); MEAN PLATELET VOLUME 9.4 fl; MONOCYTE ABSOLUTE 0.6 Th/cmm (0.3-1.0); PLATELET COUNT 223 Th/cmm (150-400); RED BLOOD COUNT 5.02 Mil/cmm (3.80-5.80); RED CELL DISTRIBUTION WIDTH 15.2 % (11.5-20.0); WHITE BLOOD COUNT 8.7 Th/cmm (4.8-10.8)
[2018-08-18 06:49] LABS: ALB/GLOB RATIO 1.3 (1.0-1.8); ALBUMIN 3.5 gm/dL (4.2-5.5); ALKALINE PHOSPHATASE 92 U/L (34-104); ANION GAP 10.5 (7.0-16.0); BILIRUBIN,TOTAL 0.5 mg/dL (0.3-1.0); BUN - UREA NITROGEN 26 mg/dL (7-25); CALCIUM SERUM 9.5 mg/dL (8.6-10.3); CARBON DIOXIDE 25.9 mEq/L (21.0-31.0); CHLORIDE 107 mEq/L (98-107); CREATININE - SERUM 0.9 mg/dL (0.7-1.3); GLUCOSE 109 mg/dL (70-105); POTASSIUM SERUM 4.4 mEq/L (3.5-5.1); SGOT 27 U/L (13-39); SGPT/ALT 11 U/L (7-52); SODIUM SERUM 139 mEq/L (136-145); TOTAL PROTEIN,SERUM 6.2 gm/dL (6.0-8.3)
--- NOTE | 2018-08-18 06:50 | Progress Notes ---
DATE: 08/17/2018 SUBJECTIVE: The patient appears to be okay, no distress. OBJECTIVE: VITAL SIGNS: Temperature is 97.7, pulse 96, respiration 19, blood pressure 106/58, saturation 96%. CHEST: Good breath sounds, no wheezes or rhonchi. HEART: Regular rate and rhythm. ABDOMEN: Soft. EXTREMITIES: No edema. LABORATORY DATA: WBC is 8.3, hemoglobin 12.5, platelets 212. Sodium 136, potassium 4.3, BUN is 25, creatinine 1.0. IMPRESSION: 1. Pneumonia, right upper lobe, resolved. 2. TB Gold negative and AFBs negative. PLAN: Discussed with Dr. Damon Lyles. Hopefully, patient can be just off isolation per [facility] and discharge soon. JOB# [id number]
[2018-08-18] MEDS: Aspirin 81mg Chewable Tab PO SCH (08:44)
[2018-08-18] MEDS: Escitalopram Oxalate 5 mg Tab PO SCH (08:44)
--- NOTE | 2018-08-18 12:50 | Internal Medicine Prog Note ---
Internal Medicine Subjective - Subjective Service Date: 08/18/18 Patient seen and examined:: with staff Patient is:: awake, talking, confused Patient Complaints of:: congestion (hx of parkinson's disease.), cough, other ( Pneumonia resolved, was on antibiotics.) Per staff patient has:: no adverse event, no episodes of fall, other (Patient is doing well.) Internal Medicine Objective - Results Result Diagrams: 08/18/18 06:05 08/18/18 06:05 Recent Labs: Laboratory Last Values WBC 8.7 Th/cmm (4.8-10.8) 08/18/18 06:05 RBC 5.02 Mil/cmm (3.80-5.80) 08/18/18 06:05 Hgb 12.5 gm/dL (12-16) 08/18/18 06:05 Hct 38.5 % (41.0-60) L 08/18/18 06:05 MCV 76.7 fl (80-99) L 08/18/18 06:05 MCH 25.0 pg (27.0-31.0) L 08/18/18 06:05 MCHC Differential 32.5 pg (28.0-36.0) 08/18/18 06:05 RDW 15.2 % (11.5-20.0) 08/18/18 06:05 Plt Count 223 Th/cmm (150-400) 08/18/18 06:05 MPV 9.4 fl 08/18/18 06:05 Neutrophils % 69.5 % (40.0-80.0) 08/18/18 06:05 Lymphocytes % 21.3 % (20.0-50.0) 08/18/18 06:05 Monocytes % 7.0 % (2.0-10.0) 08/18/18 06:05 Eosinophils % 1.9 % (0.0-5.0) 08/18/18 06:05 Basophils % 0.3 % (0.0-2.0) 08/18/18 06:05 PT 11.4 SECONDS (9.5-11.5) 08/06/18 16:20 INR 1.11 (0.5-1.4) 08/06/18 16:20 PTT (Actin FS) 26.7 SECONDS (26.0-38.0) 08/06/18 16:20 Sodium 139 mEq/L (136-145) 08/18/18 06:05 Potassium 4.4 mEq/L (3.5-5.1) 08/18/18 06:05 Chloride 107 mEq/L (98-107) 08/18/18 06:05 Carbon Dioxide 25.9 mEq/L (21.0-31.0) 08/18/18 06:05 Anion Gap 10.5 (7.0-16.0) 08/18/18 06:05 BUN 26 mg/dL (7-25) H 08/18/18 06:05 Creatinine 0.9 mg/dL (0.7-1.3) 08/18/18 06:05 Est GFR ( Amer) TNP 08/18/18 06:05 Est GFR (Non-Af Amer) TNP 08/18/18 06:05 BUN/Creatinine Ratio 28.9 08/18/18 06:05 Glucose 109 mg/dL (70-105) H 08/18/18 06:05 POC Glucose 111 MG/DL (70 - 105) H 08/06/18 18:32 Whole Bld Lactic Acid 1.32 mmol/L (0.60-1.99) 08/06/18 16:20 Calcium 9.5 mg/dL (8.6-10.3) 08/18/18 06:05 Phosphorus 2.9 mg/dL (2.5-5.0) 08/15/18 12:35 Total Bilirubin 0.5 mg/dL (0.3-1.0) 08/18/18 06:05 Direct Bilirubin 0.31 mg/dL (0.0-0.2) H 08/15/18 12:35 AST 27 U/L (13-39) 08/18/18 06:05 ALT 11 U/L (7-52) 08/18/18 06:05 Alkaline Phosphatase 92 U/L (34-104) 08/18/18 06:05 Total Protein 6.2 gm/dL (6.0-8.3) 08/18/18 06:05 Albumin 3.5 gm/dL (4.2-5.5) L 08/18/18 06:05 Globulin 2.7 gm/dL 08/18/18 06:05 Albumin/Globulin Ratio 1.3 (1.0-1.8) 08/18/18 06:05 Urine Source CLEAN C 08/06/18 14:55 Urine Color YELLOW 08/06/18 14:55 Urine Clarity CLEAR (CLEAR) 08/06/18 14:55 Urine pH 6.0 (4.6 - 8.0) 08/06/18 14:55 Ur Specific [place] 1.020 (1.005-1.030) 08/06/18 14:55 Urine Protein NEGATIVE mg/dL (NEGATIVE) 08/06/18 14:55 Urine Glucose (UA) NEGATIVE mg/dL (NEGATIVE) 08/06/18 14:55 Urine Ketones TRACE mg/dL (NEGATIVE) 08/06/18 14:55 Urine Blood NEGATIVE (NEGATIVE) 08/06/18 14:55 Urine Nitrate NEGATIVE (NEGATIVE) 08/06/18 14:55 Urine Bilirubin NEGATIVE (NEGATIVE) 08/06/18 14:55 Urine Urobilinogen 0.2 E.U./dL (0.2 - 1.0) 08/06/18 14:55 Ur Leukocyte Esterase NEGATIVE (NEGATIVE) 08/06/18 14:55 Urine RBC 2-5 /hpf (0-5) H 08/06/18 14:55 Urine WBC 0-2 /hpf (0-5) 08/06/18 14:55 Ur Epithelial Cells OCCASIONAL /lpf (FEW) 08/06/18 14:55 Calcium Oxalate Crystal FEW /hpf 08/06/18 14:55 Urine Bacteria FEW /hpf (NONE SEEN) 08/06/18 14:55 HIV 1&2 Antibody Screen NEGATIVE (NEG) 08/07/18 06:30 L.pneumophila Antigen Negative (Negative) 08/14/18 17:33 TB (QFT) Gold In Tube 08/07/18 06:30 TB Test (QFT) Mitogen 08/07/18 06:30 TB Test (QFT) Antigen 08/07/18 06:30 TB Test TB - Nil 08/07/18 06:30 TB Test (QFT) Interp 08/07/18 06:30 - Physical Exam Vitals and I&O: Vital Signs Temp 97.4 F 08/18/18 11:54 Pulse 80 08/18/18 11:54 Resp 19 08/18/18 11:54 BP 121/50 08/18/18 11:54 Pulse Ox 94 08/18/18 11:54 Intake & Output 08/17/18 08/18/18 08/18/18 18:59 06:59 18:59 Intake Total 720 100 Output Total 450 Balance 270 100 Weight (lbs) 61.235 kg 61.235 kg Intake: Oral 720 100 Output: Urine 450 Other: # Voids 1 # Bowel Movements 2 Stool Characteristics Soft Soft Formed Formed Brown Brown Weight Source Bedscale Bedscale Active Medications: Current Medications Acetaminophen (Tylenol) 650 mg PO Q4H PRN PRN Reason: ELEVATED TEMP >99.9 Acetaminophen (Tylenol) 650 mg PO Q4H PRN PRN Reason: PAIN Albuterol/Ipratropium (Duoneb Neb) 3 ml HHN Q6HRT PRN PRN Reason: shortness of breath Stop: 10/10/18 18:59 Ascorbic Acid (Vitamin C) 500 mg PO BID [facility] Stop: 10/06/18 08:59 Last Admin: 08/18/18 08:44 Dose: 500 mg Aspirin (Aspirin Chewable) 81 mg PO DAILY [facility] Stop: 10/06/18 08:59 Last Admin: 08/18/18 08:44 Dose: 81 mg Atorvastatin Calcium (Lipitor) 80 mg PO HS [facility]; Protocol Stop: 10/06/18 20:59 Last Admin: 08/17/18 21:30 Dose: 80 mg Benazepril HCl (Lotensin) 5 mg PO DAILY [facility] Stop: 10/06/18 08:59 Last Admin: 08/18/18 08:43 Dose: 5 mg Bisacodyl (Dulcolax 10 Mg Supp) 10 mg RC Q48H PRN PRN Reason: IF NO RELIEF FROM MOM Calcium Carbonate (Tums) 500 mg PO DAILY [facility] Stop: 10/12/18 21:59 Last Admin: 08/18/18 08:43 Dose: 500 mg Carbidopa/Levodopa (Sinemet 25mg-100 Mg) 1 tab PO TID [facility] Stop: 10/06/18 08:59 Last Admin: 08/18/18 08:44 Dose: 1 tab Escitalopram Oxalate (Lexapro) 5 mg PO DAILY [facility]; Protocol Stop: 10/06/18 08:59 Last Admin: 08/18/18 08:44 Dose: 5 mg Ethambutol HCl (Myambutol) 800 mg PO DAILY [facility] Stop: 10/13/18 08:59 Last Admin: 08/18/18 08:46 Dose: 800 mg Isoniazid (Inh) 300 mg PO DAILY [facility] Stop: 10/13/18 08:59 Last Admin: 08/18/18 08:46 Dose: 300 mg Levofloxacin (Levaquin) 250 mg PO DAILY [facility] Stop: 10/13/18 08:59 Last Admin: 08/18/18 08:44 Dose: 250 mg Miscellaneous (Probiotic Screen) 1 ea MC PRN PRN PRN Reason: PROTOCOL Stop: 10/06/18 17:29 Ondansetron HCl (Zofran Odt) 4 mg PO Q6H PRN PRN Reason: Nausea / Vomiting Stop: 10/13/18 14:36 Pyridoxine HCl (Vitamin B6) 50 mg PO DAILY [facility] Stop: 10/14/18 11:58 Last Admin: 08/18/18 08:44 Dose: 50 mg Rifampin (Rifadin) 600 mg PO DAILY [facility] Stop: 10/14/18 08:59 Last Admin: 08/18/18 08:45 Dose: 600 mg Physical Exam: 88 y/o male patient had pneumonia which has resolved. General: weak, demented HEENT: NC/AT Neck: Supple, No JVD Lungs: rales, ronchi, other (Tb ruled out.) Cardiovascular: RRR, Normal S1 Abdomen: soft, non-tender Extremities: clear Neurological: no change, muscle weakness Internal Medicine Assmt/Plan - Assessment Assessment: Pneumonia- resolved. Weakness. Parkinson's disease. Dementia. BPH. Dyslipidemia. HTN. CAD. Leukocytosis. - Plan Plan: Continuation of care. Monitor vitals, low sodium diabetic diet and Labs. Continue present meds as directed. Respiratory treatments and Pulmonary support. Supplemental Oxygen. Aspiration precaution. Deep suctioning prn. Monitor mental status progression. Monitor behavioral health status. Discontinue Airborne Isolation. Safety precaution. Supportive care. Fall precaution, frequent nursing rounds, and as needed restraints to prevent fall. Continue present care management. Nutritional Asmnt/Malnutr-PDOC - Dietary Evaluation Malnutrition Findings (Please click <Entered> for more info): Nutritional Asmnt/Malnutrition Start: 08/10/18 16: 58 Text: Status: Complete Freq: Protocol: Document 08/10/18 16:58 DEXTERG (Rec: 08/10/18 17:05 TARAH [email or web address]) Nutritional Asmnt/Malnutrition Patient General Information Nutritional Screening Moderate Risk Diagnosis upper lobe infiltration, PNA r /o TB Pertinent Medical Hx/Surgical Hx HTN, CAD, dyslipidmeia, dementia, parkinson's, BPH, CABG, dementia Subjective Information Pt seen in airbone isolation room, having lunch. Per EMR, PO itnake 75-100%. Current Diet Order/ Nutrition Support 2gm sodium Pertinent Medications vit C, lipitor Pertinent Labs 08/09 glucose 109 08/08 Cl 108, Glucose 115 Nutritional Hx/Data Height 1.63 m Height (Calculated Centimeters) 162.6 Current Weight (lbs) 61.235 kg Weight (Calculated Kilograms) 61.2 Weight (Calculated Grams) 02029.0 [place] Body Weight 130 Body Mass Index (BMI) 23.1 Weight Status Approriate GI Symptoms GI Symptoms None Last BM 08/09 Difficult in: None Skin Integrity/Comment: intact Current %PO Good (75-100%) Estimated Nutritional Goals BEE in Kcals: Using Current wt Calories/Kcals/Kg 25-30 Kcals Calculated 0194-3182 Protein: Using Current wt Protein g/k Protein Calculated 61 Fluid: ml 1525-1830ml (1ml/kcal) Nutritional Problem No current Nutrition Prob Problem n/A Malnutrition Alert Is there a minimum of two criteria No selected? Query Text:Check all the applicable criteria. A minimum of two criteria are recommended for diagnosis of either severe or non-severe malnutrition. Malnutrition Related to Morbid Obesity Malnutrition related to morbid obesity No Intervention/Recommendation Comments 1. Continue with 2gm Na diet as ordered. 2. Monitor PO intake, wt, labs and skin integrity 3. F/U as low risk in 7 days Expected Outcomes/Goals Expected Outcomes/Goals 1. PO intake to meet at least 75% of nutritional needs. 2. Wt stability, skin to remain intact, labs to approach WNL.
--- NOTE | 2018-08-18 15:02 | Infectious Disease Prog Note ---
Infectious Disease Subjective - Review of Systems Service Date: 08/18/18 Subjective: Doing the same, no fever. Infectious Disease Objective - Results Result Diagrams: 08/18/18 06:05 08/18/18 06:05 Recent Labs: Laboratory Last Values WBC 8.7 Th/cmm (4.8-10.8) 08/18/18 06:05 RBC 5.02 Mil/cmm (3.80-5.80) 08/18/18 06:05 Hgb 12.5 gm/dL (12-16) 08/18/18 06:05 Hct 38.5 % (41.0-60) L 08/18/18 06:05 MCV 76.7 fl (80-99) L 08/18/18 06:05 MCH 25.0 pg (27.0-31.0) L 08/18/18 06:05 MCHC Differential 32.5 pg (28.0-36.0) 08/18/18 06:05 RDW 15.2 % (11.5-20.0) 08/18/18 06:05 Plt Count 223 Th/cmm (150-400) 08/18/18 06:05 MPV 9.4 fl 08/18/18 06:05 Neutrophils % 69.5 % (40.0-80.0) 08/18/18 06:05 Lymphocytes % 21.3 % (20.0-50.0) 08/18/18 06:05 Monocytes % 7.0 % (2.0-10.0) 08/18/18 06:05 Eosinophils % 1.9 % (0.0-5.0) 08/18/18 06:05 Basophils % 0.3 % (0.0-2.0) 08/18/18 06:05 PT 11.4 SECONDS (9.5-11.5) 08/06/18 16:20 INR 1.11 (0.5-1.4) 08/06/18 16:20 PTT (Actin FS) 26.7 SECONDS (26.0-38.0) 08/06/18 16:20 Sodium 139 mEq/L (136-145) 08/18/18 06:05 Potassium 4.4 mEq/L (3.5-5.1) 08/18/18 06:05 Chloride 107 mEq/L (98-107) 08/18/18 06:05 Carbon Dioxide 25.9 mEq/L (21.0-31.0) 08/18/18 06:05 Anion Gap 10.5 (7.0-16.0) 08/18/18 06:05 BUN 26 mg/dL (7-25) H 08/18/18 06:05 Creatinine 0.9 mg/dL (0.7-1.3) 08/18/18 06:05 Est GFR ( Amer) TNP 08/18/18 06:05 Est GFR (Non-Af Amer) TNP 08/18/18 06:05 BUN/Creatinine Ratio 28.9 08/18/18 06:05 Glucose 109 mg/dL (70-105) H 08/18/18 06:05 POC Glucose 111 MG/DL (70 - 105) H 08/06/18 18:32 Whole Bld Lactic Acid 1.32 mmol/L (0.60-1.99) 08/06/18 16:20 Calcium 9.5 mg/dL (8.6-10.3) 08/18/18 06:05 Phosphorus 2.9 mg/dL (2.5-5.0) 08/15/18 12:35 Total Bilirubin 0.5 mg/dL (0.3-1.0) 08/18/18 06:05 Direct Bilirubin 0.31 mg/dL (0.0-0.2) H 08/15/18 12:35 AST 27 U/L (13-39) 08/18/18 06:05 ALT 11 U/L (7-52) 08/18/18 06:05 Alkaline Phosphatase 92 U/L (34-104) 08/18/18 06:05 Total Protein 6.2 gm/dL (6.0-8.3) 08/18/18 06:05 Albumin 3.5 gm/dL (4.2-5.5) L 08/18/18 06:05 Globulin 2.7 gm/dL 08/18/18 06:05 Albumin/Globulin Ratio 1.3 (1.0-1.8) 08/18/18 06:05 Urine Source CLEAN C 08/06/18 14:55 Urine Color YELLOW 08/06/18 14:55 Urine Clarity CLEAR (CLEAR) 08/06/18 14:55 Urine pH 6.0 (4.6 - 8.0) 08/06/18 14:55 Ur Specific [place] 1.020 (1.005-1.030) 08/06/18 14:55 Urine Protein NEGATIVE mg/dL (NEGATIVE) 08/06/18 14:55 Urine Glucose (UA) NEGATIVE mg/dL (NEGATIVE) 08/06/18 14:55 Urine Ketones TRACE mg/dL (NEGATIVE) 08/06/18 14:55 Urine Blood NEGATIVE (NEGATIVE) 08/06/18 14:55 Urine Nitrate NEGATIVE (NEGATIVE) 08/06/18 14:55 Urine Bilirubin NEGATIVE (NEGATIVE) 08/06/18 14:55 Urine Urobilinogen 0.2 E.U./dL (0.2 - 1.0) 08/06/18 14:55 Ur Leukocyte Esterase NEGATIVE (NEGATIVE) 08/06/18 14:55 Urine RBC 2-5 /hpf (0-5) H 08/06/18 14:55 Urine WBC 0-2 /hpf (0-5) 08/06/18 14:55 Ur Epithelial Cells OCCASIONAL /lpf (FEW) 08/06/18 14:55 Calcium Oxalate Crystal FEW /hpf 08/06/18 14:55 Urine Bacteria FEW /hpf (NONE SEEN) 08/06/18 14:55 HIV 1&2 Antibody Screen NEGATIVE (NEG) 08/07/18 06:30 L.pneumophila Antigen Negative (Negative) 08/14/18 17:33 TB (QFT) Gold In Tube 08/07/18 06:30 TB Test (QFT) Mitogen 08/07/18 06:30 TB Test (QFT) Antigen 08/07/18 06:30 TB Test TB - Nil 08/07/18 06:30 TB Test (QFT) Interp 08/07/18 06:30 - Physical Exam Vitals and I&O: Vital Signs Temp 97.4 F 08/18/18 11:54 Pulse 80 08/18/18 11:54 Resp 19 08/18/18 11:54 BP 121/50 08/18/18 11:54 Pulse Ox 94 08/18/18 11:54 Intake & Output 08/17/18 08/18/18 08/18/18 18:59 06:59 18:59 Intake Total 720 100 Output Total 450 Balance 270 100 Weight (lbs) 61.235 kg 61.235 kg Intake: Oral 720 100 Output: Urine 450 Other: # Voids 1 # Bowel Movements 2 Stool Characteristics Soft Soft Formed Formed Brown Brown Weight Source Bedscale Bedscale Active Medications: Current Medications Acetaminophen (Tylenol) 650 mg PO Q4H PRN PRN Reason: ELEVATED TEMP >99.9 Acetaminophen (Tylenol) 650 mg PO Q4H PRN PRN Reason: PAIN Albuterol/Ipratropium (Duoneb Neb) 3 ml HHN Q6HRT PRN PRN Reason: shortness of breath Stop: 10/10/18 18:59 Ascorbic Acid (Vitamin C) 500 mg PO BID [facility] Stop: 10/06/18 08:59 Last Admin: 08/18/18 08:44 Dose: 500 mg Aspirin (Aspirin Chewable) 81 mg PO DAILY [facility] Stop: 10/06/18 08:59 Last Admin: 08/18/18 08:44 Dose: 81 mg Atorvastatin Calcium (Lipitor) 80 mg PO HS [facility]; Protocol Stop: 10/06/18 20:59 Last Admin: 08/17/18 21:30 Dose: 80 mg Benazepril HCl (Lotensin) 5 mg PO DAILY [facility] Stop: 10/06/18 08:59 Last Admin: 08/18/18 08:43 Dose: 5 mg Bisacodyl (Dulcolax 10 Mg Supp) 10 mg RC Q48H PRN PRN Reason: IF NO RELIEF FROM MOM Calcium Carbonate (Tums) 500 mg PO DAILY [facility] Stop: 10/12/18 21:59 Last Admin: 08/18/18 08:43 Dose: 500 mg Carbidopa/Levodopa (Sinemet 25mg-100 Mg) 1 tab PO TID [facility] Stop: 10/06/18 08:59 Last Admin: 08/18/18 14:27 Dose: 1 tab Escitalopram Oxalate (Lexapro) 5 mg PO DAILY [facility]; Protocol Stop: 10/06/18 08:59 Last Admin: 08/18/18 08:44 Dose: 5 mg Ethambutol HCl (Myambutol) 800 mg PO DAILY [facility] Stop: 10/13/18 08:59 Last Admin: 08/18/18 08:46 Dose: 800 mg Isoniazid (Inh) 300 mg PO DAILY [facility] Stop: 10/13/18 08:59 Last Admin: 08/18/18 08:46 Dose: 300 mg Levofloxacin (Levaquin) 250 mg PO DAILY [facility] Stop: 10/13/18 08:59 Last Admin: 08/18/18 08:44 Dose: 250 mg Miscellaneous (Probiotic Screen) 1 ea MC PRN PRN PRN Reason: PROTOCOL Stop: 10/06/18 17:29 Ondansetron HCl (Zofran Odt) 4 mg PO Q6H PRN PRN Reason: Nausea / Vomiting Stop: 10/13/18 14:36 Last Admin: 08/18/18 14:30 Dose: 4 mg Pyridoxine HCl (Vitamin B6) 50 mg PO DAILY [facility] Stop: 10/14/18 11:58 Last Admin: 08/18/18 08:44 Dose: 50 mg Rifampin (Rifadin) 600 mg PO DAILY [facility] Stop: 10/14/18 08:59 Last Admin: 08/18/18 08:45 Dose: 600 mg General: no acute distress, well developed, well nourished HEENT: atraumatic, normocephalic, PERRLA, EOMI Neck: supple, no thyromegaly Cardiovascular: S1S2, regular Lungs: clear to auscultation bilaterally, clear to percussion Abdomen: soft, no tender, no distended Extremities: no cyanosis, no clubbing, no edema Neurological: awake, alert, oriented Skin: intact Infectious Disease Assmt/Plan - Problem List Patient Problems: All Active Problems CHEST INFILTRATE WITH ELEVATED WBC'S (Acute) - Assessment Assessment: 1. Right upper lobe infiltrate. Differential includes a community-acquired pneumonia versus atypical pneumonia. TB gold quantiferon is negative. ( AFB smear X 3/3 negative, and RUL infiltrates resolving). 2. Dementia. 3. Hypertension. 4. History of heart disease. 5. Dementia. 6. Hypothyroidism. - Plan Plan: dc Levaquin. continue anti TB meds. DC plan as per the public health. Nutritional Asmnt/Malnutr-PDOC - Dietary Evaluation Malnutrition Findings (Please click <Entered> for more info): Nutritional Asmnt/Malnutrition Start: 08/10/18 16: 58 Text: Status: Complete Freq: Protocol: Document 08/10/18 16:58 LCHENG (Rec: 08/10/18 17:05 DEXTERG [id number]) Nutritional Asmnt/Malnutrition Patient General Information Nutritional Screening Moderate Risk Diagnosis upper lobe infiltration, PNA r /o TB Pertinent Medical Hx/Surgical Hx HTN, CAD, dyslipidmeia, dementia, parkinson's, BPH, CABG, dementia Subjective Information Pt seen in airbone isolation room, having lunch. Per EMR, PO itnake 75-100%. Current Diet Order/ Nutrition Support 2gm sodium Pertinent Medications vit C, lipitor Pertinent Labs 08/09 glucose 109 5/8 Cl 108, Glucose 115 Nutritional Hx/Data Height 1.63 m Height (Calculated Centimeters) 162.6 Current Weight (lbs) 61.235 kg Weight (Calculated Kilograms) 61.2 Weight (Calculated Grams) 05132.0 [place] Body Weight 130 Body Mass Index (BMI) 23.1 Weight Status Approriate GI Symptoms GI Symptoms None Last BM 08/09 Difficult in: None Skin Integrity/Comment: intact Current %PO Good (75-100%) Estimated Nutritional Goals BEE in Kcals: Using Current wt Calories/Kcals/Kg 25-30 Kcals Calculated 7625-3313 Protein: Using Current wt Protein g/k Protein Calculated 61 Fluid: ml 1525-1830ml (1ml/kcal) Nutritional Problem No current Nutrition Prob Problem n/A Malnutrition Alert Is there a minimum of two criteria No selected? Query Text:Check all the applicable criteria. A minimum of two criteria are recommended for diagnosis of either severe or non-severe malnutrition. Malnutrition Related to Morbid Obesity Malnutrition related to morbid obesity No Intervention/Recommendation Comments 1. Continue with 2gm Na diet as ordered. 2. Monitor PO intake, wt, labs and skin integrity 3. F/U as low risk in 7 days Expected Outcomes/Goals Expected Outcomes/Goals 1. PO intake to meet at least 75% of nutritional needs. 2. Wt stability, skin to remain intact, labs to approach WNL.
[2018-08-19 06:24] LABS: % BASOPHILS 0.5 % (0.0-2.0); % EOSINOPHILS 1.8 % (0.0-5.0); % LYMPHOCYTES 26.9 % (20.0-50.0); % MONOCYTES 10.1 % (2.0-10.0); % NEUTROPHILS 60.7 % (40.0-80.0); EOSINOPHILE ABSOLUTE 0.1 Th/cmm (0.1-0.4); HEMATOCRIT 36.4 % (41.0-60); HEMOGLOBIN 11.7 gm/dL (12-16); MEAN CELL VOLUME 77.5 fl (80-99); MEAN CORPUSCULAR HEMOGLOBIN 24.9 pg (27.0-31.0); MEAN CORPUSCULAR HGB CONC 32.2 pg (28.0-36.0); MEAN PLATELET VOLUME 9.2 fl; MONOCYTE ABSOLUTE 0.8 Th/cmm (0.3-1.0); NEUTROPHILE ABSOLUTE 4.6 Th/cmm (1.8-8.0); PLATELET COUNT 213 Th/cmm (150-400); RED CELL DISTRIBUTION WIDTH 15.5 % (11.5-20.0); WHITE BLOOD COUNT 7.5 Th/cmm (4.8-10.8)
[2018-08-19 06:39] LABS: ALB/GLOB RATIO 1.3 (1.0-1.8); ALBUMIN 3.3 gm/dL (4.2-5.5); ALKALINE PHOSPHATASE 84 U/L (34-104); ANION GAP 8.5 (7.0-16.0); BILIRUBIN,TOTAL 0.5 mg/dL (0.3-1.0); BUN - UREA NITROGEN 24 mg/dL (7-25); CARBON DIOXIDE 27.1 mEq/L (21.0-31.0); CHLORIDE 107 mEq/L (98-107); CREATININE - SERUM 0.9 mg/dL (0.7-1.3); GLUCOSE 99 mg/dL (70-105); POTASSIUM SERUM 4.6 mEq/L (3.5-5.1); SGOT 21 U/L (13-39); SGPT/ALT 14 U/L (7-52); SODIUM SERUM 138 mEq/L (136-145); TOTAL PROTEIN,SERUM 5.8 gm/dL (6.0-8.3)
--- NOTE | 2018-08-19 08:40 | Progress Notes ---
DATE: 08/18/2018 PULMONARY PROGRESS NOTE SUBJECTIVE: The patient appears to be doing okay, in no distress. OBJECTIVE: VITAL SIGNS: Temperature 97.4, pulse 80, respirations 18, blood pressure ____, saturation 94%. HEENT: ____ CHEST: Good breath sounds. No wheezing, no crackles. HEART: Regular rate and rhythm. No murmurs. ABDOMEN: Soft. EXTREMITIES: No edema. LABORATORY DATA: WBC is 8.7, hemoglobin 12.5, hematocrit 38.5, platelets 223. Sodium 130, potassium 4.4, BUN is 26, creatinine 0.9. IMPRESSION: 1. Right upper lobe pneumonia, resolved. 2. The patient is still in TB isolation for some reason. TB Gold is negative. BNP is negative. PLAN: Awaiting clearance from the Health Department so the patient can be discharged. JOB# [id number]
[2018-08-19] MEDS: Aspirin 81mg Chewable Tab PO SCH (09:05)
[2018-08-19] MEDS: Escitalopram Oxalate 5 mg Tab PO SCH (09:05)
--- NOTE | 2018-08-19 21:19 | Infectious Disease Prog Note ---
Infectious Disease Subjective - Review of Systems Service Date: 08/19/18 Subjective: Doing the same, no fever. Infectious Disease Objective - Results Result Diagrams: 08/19/18 06:00 08/19/18 06:00 Recent Labs: Laboratory Last Values WBC 7.5 Th/cmm (4.8-10.8) 08/19/18 06:00 RBC 4.70 Mil/cmm (3.80-5.80) 08/19/18 06:00 Hgb 11.7 gm/dL (12-16) L 08/19/18 06:00 Hct 36.4 % (41.0-60) L 08/19/18 06:00 MCV 77.5 fl (80-99) L 08/19/18 06:00 MCH 24.9 pg (27.0-31.0) L 08/19/18 06:00 MCHC Differential 32.2 pg (28.0-36.0) 08/19/18 06:00 RDW 15.5 % (11.5-20.0) 08/19/18 06:00 Plt Count 213 Th/cmm (150-400) 08/19/18 06:00 MPV 9.2 fl 08/19/18 06:00 Neutrophils % 60.7 % (40.0-80.0) 08/19/18 06:00 Lymphocytes % 26.9 % (20.0-50.0) 08/19/18 06:00 Monocytes % 10.1 % (2.0-10.0) H 08/19/18 06:00 Eosinophils % 1.8 % (0.0-5.0) 08/19/18 06:00 Basophils % 0.5 % (0.0-2.0) 08/19/18 06:00 PT 11.4 SECONDS (9.5-11.5) 08/06/18 16:20 INR 1.11 (0.5-1.4) 08/06/18 16:20 PTT (Actin FS) 26.7 SECONDS (26.0-38.0) 08/06/18 16:20 Sodium 138 mEq/L (136-145) 08/19/18 06:00 Potassium 4.6 mEq/L (3.5-5.1) 08/19/18 06:00 Chloride 107 mEq/L (98-107) 08/19/18 06:00 Carbon Dioxide 27.1 mEq/L (21.0-31.0) 08/19/18 06:00 Anion Gap 8.5 (7.0-16.0) 08/19/18 06:00 BUN 24 mg/dL (7-25) 08/19/18 06:00 Creatinine 0.9 mg/dL (0.7-1.3) 08/19/18 06:00 Est GFR ( Amer) TNP 08/19/18 06:00 Est GFR (Non-Af Amer) TNP 08/19/18 06:00 BUN/Creatinine Ratio 26.7 08/19/18 06:00 Glucose 99 mg/dL (70-105) 08/19/18 06:00 POC Glucose 111 MG/DL (70 - 105) H 08/06/18 18:32 Whole Bld Lactic Acid 1.32 mmol/L (0.60-1.99) 08/06/18 16:20 Calcium 9.0 mg/dL (8.6-10.3) 08/19/18 06:00 Phosphorus 2.9 mg/dL (2.5-5.0) 08/15/18 12:35 Total Bilirubin 0.5 mg/dL (0.3-1.0) 08/19/18 06:00 Direct Bilirubin 0.31 mg/dL (0.0-0.2) H 08/15/18 12:35 AST 21 U/L (13-39) 08/19/18 06:00 ALT 14 U/L (7-52) 08/19/18 06:00 Alkaline Phosphatase 84 U/L (34-104) 08/19/18 06:00 Total Protein 5.8 gm/dL (6.0-8.3) L 08/19/18 06:00 Albumin 3.3 gm/dL (4.2-5.5) L 08/19/18 06:00 Globulin 2.5 gm/dL 08/19/18 06:00 Albumin/Globulin Ratio 1.3 (1.0-1.8) 08/19/18 06:00 Urine Source CLEAN C 08/06/18 14:55 Urine Color YELLOW 08/06/18 14:55 Urine Clarity CLEAR (CLEAR) 08/06/18 14:55 Urine pH 6.0 (4.6 - 8.0) 08/06/18 14:55 Ur Specific [place] 1.020 (1.005-1.030) 08/06/18 14:55 Urine Protein NEGATIVE mg/dL (NEGATIVE) 08/06/18 14:55 Urine Glucose (UA) NEGATIVE mg/dL (NEGATIVE) 08/06/18 14:55 Urine Ketones TRACE mg/dL (NEGATIVE) 08/06/18 14:55 Urine Blood NEGATIVE (NEGATIVE) 08/06/18 14:55 Urine Nitrate NEGATIVE (NEGATIVE) 08/06/18 14:55 Urine Bilirubin NEGATIVE (NEGATIVE) 08/06/18 14:55 Urine Urobilinogen 0.2 E.U./dL (0.2 - 1.0) 08/06/18 14:55 Ur Leukocyte Esterase NEGATIVE (NEGATIVE) 08/06/18 14:55 Urine RBC 2-5 /hpf (0-5) H 08/06/18 14:55 Urine WBC 0-2 /hpf (0-5) 08/06/18 14:55 Ur Epithelial Cells OCCASIONAL /lpf (FEW) 08/06/18 14:55 Calcium Oxalate Crystal FEW /hpf 08/06/18 14:55 Urine Bacteria FEW /hpf (NONE SEEN) 08/06/18 14:55 HIV 1&2 Antibody Screen NEGATIVE (NEG) 08/07/18 06:30 L.pneumophila Antigen Negative (Negative) 08/14/18 17:33 TB (QFT) Gold In Tube 08/07/18 06:30 TB Test (QFT) Mitogen 08/07/18 06:30 TB Test (QFT) Antigen 08/07/18 06:30 TB Test TB - Nil 08/07/18 06:30 TB Test (QFT) Interp 08/07/18 06:30 - Physical Exam Vitals and I&O: Vital Signs Temp 98.4 F 08/19/18 20:00 Pulse 87 08/19/18 20:00 Resp 17 08/19/18 20:00 BP 112/57 08/19/18 20:00 Pulse Ox 96 08/19/18 20:00 Intake & Output 08/19/18 08/19/18 08/20/18 06:59 18:59 06:59 Intake Total 700 Balance 700 Weight (lbs) 61.235 kg Intake: Oral 700 Other: # Voids 3 Weight Source Bedscale Active Medications: Current Medications Acetaminophen (Tylenol) 650 mg PO Q4H PRN PRN Reason: ELEVATED TEMP >99.9 Acetaminophen (Tylenol) 650 mg PO Q4H PRN PRN Reason: PAIN Albuterol/Ipratropium (Duoneb Neb) 3 ml HHN Q6HRT PRN PRN Reason: shortness of breath Stop: 10/10/18 18:59 Ascorbic Acid (Vitamin C) 500 mg PO BID [facility] Stop: 10/06/18 08:59 Last Admin: 08/19/18 16:01 Dose: 500 mg Aspirin (Aspirin Chewable) 81 mg PO DAILY [facility] Stop: 10/06/18 08:59 Last Admin: 08/19/18 09:05 Dose: 81 mg Atorvastatin Calcium (Lipitor) 80 mg PO HS [facility]; Protocol Stop: 10/06/18 20:59 Last Admin: 08/19/18 20:31 Dose: 80 mg Benazepril HCl (Lotensin) 5 mg PO DAILY [facility] Stop: 10/06/18 08:59 Last Admin: 08/19/18 09:05 Dose: 5 mg Bisacodyl (Dulcolax 10 Mg Supp) 10 mg RC Q48H PRN PRN Reason: IF NO RELIEF FROM MOM Calcium Carbonate (Tums) 500 mg PO DAILY [facility] Stop: 10/12/18 21:59 Last Admin: 08/19/18 09:06 Dose: 500 mg Carbidopa/Levodopa (Sinemet 25mg-100 Mg) 1 tab PO TID [facility] Stop: 10/06/18 08:59 Last Admin: 08/19/18 20:31 Dose: 1 tab Escitalopram Oxalate (Lexapro) 5 mg PO DAILY [facility]; Protocol Stop: 10/06/18 08:59 Last Admin: 08/19/18 09:05 Dose: 5 mg Ethambutol HCl (Myambutol) 800 mg PO DAILY [facility] Stop: 10/13/18 08:59 Last Admin: 08/19/18 09:07 Dose: 800 mg Isoniazid (Inh) 300 mg PO DAILY [facility] Stop: 10/13/18 08:59 Last Admin: 08/19/18 09:07 Dose: 300 mg Miscellaneous (Probiotic Screen) 1 ea MC PRN PRN PRN Reason: PROTOCOL Stop: 10/06/18 17:29 Ondansetron HCl (Zofran Odt) 4 mg PO Q6H PRN PRN Reason: Nausea / Vomiting Stop: 10/13/18 14:36 Last Admin: 08/19/18 14:35 Dose: 4 mg Pyridoxine HCl (Vitamin B6) 50 mg PO DAILY [facility] Stop: 10/14/18 11:58 Last Admin: 08/19/18 09:06 Dose: 50 mg Rifampin (Rifadin) 600 mg PO DAILY [facility] Stop: 10/14/18 08:59 Last Admin: 08/19/18 09:06 Dose: 600 mg General: no acute distress, well developed, well nourished HEENT: atraumatic, normocephalic, PERRLA, EOMI Neck: supple, no thyromegaly Cardiovascular: S1S2, regular Lungs: clear to auscultation bilaterally, clear to percussion Abdomen: soft, no tender, no distended Extremities: no cyanosis, no clubbing, no edema Neurological: awake, alert, oriented Skin: intact Infectious Disease Assmt/Plan - Problem List Patient Problems: All Active Problems CHEST INFILTRATE WITH ELEVATED WBC'S (Acute) - Assessment Assessment: 1. Right upper lobe infiltrate. Differential includes a community-acquired pneumonia versus atypical pneumonia. TB gold quantiferon is negative. ( AFB smear X 3/3 negative, and RUL infiltrates resolving). 2. Dementia. 3. Hypertension. 4. History of heart disease. 5. Dementia. 6. Hypothyroidism. - Plan Plan: dc Levaquin. continue anti TB meds. DC plan as per the public health. Nutritional Asmnt/Malnutr-PDOC - Dietary Evaluation Malnutrition Findings (Please click <Entered> for more info): Nutritional Asmnt/Malnutrition Start: 08/10/18 16: 58 Text: Status: Complete Freq: Protocol: Document 08/10/18 16:58 [id number] (Rec: 08/10/18 17:05 DEXTERG [id number]) Nutritional Asmnt/Malnutrition Patient General Information Nutritional Screening Moderate Risk Diagnosis upper lobe infiltration, PNA r /o TB Pertinent Medical Hx/Surgical Hx HTN, CAD, dyslipidmeia, dementia, parkinson's, BPH, CABG, dementia Subjective Information Pt seen in airbone isolation room, having lunch. Per EMR, PO itnake 75-100%. Current Diet Order/ Nutrition Support 2gm sodium Pertinent Medications vit C, lipitor Pertinent Labs 08/09 glucose 109 5/8 Cl 108, Glucose 115 Nutritional Hx/Data Height 1.63 m Height (Calculated Centimeters) 162.6 Current Weight (lbs) 61.235 kg Weight (Calculated Kilograms) 61.2 Weight (Calculated Grams) 38344.0 [place] Body Weight 130 Body Mass Index (BMI) 23.1 Weight Status Approriate GI Symptoms GI Symptoms None Last BM 08/09 Difficult in: None Skin Integrity/Comment: intact Current %PO Good (75-100%) Estimated Nutritional Goals BEE in Kcals: Using Current wt Calories/Kcals/Kg 25-30 Kcals Calculated 9771-7117 Protein: Using Current wt Protein g/k Protein Calculated 61 Fluid: ml 1525-1830ml (1ml/kcal) Nutritional Problem No current Nutrition Prob Problem n/A Malnutrition Alert Is there a minimum of two criteria No selected? Query Text:Check all the applicable criteria. A minimum of two criteria are recommended for diagnosis of either severe or non-severe malnutrition. Malnutrition Related to Morbid Obesity Malnutrition related to morbid obesity No Intervention/Recommendation Comments 1. Continue with 2gm Na diet as ordered. 2. Monitor PO intake, wt, labs and skin integrity 3. F/U as low risk in 7 days Expected Outcomes/Goals Expected Outcomes/Goals 1. PO intake to meet at least 75% of nutritional needs. 2. Wt stability, skin to remain intact, labs to approach WNL.
--- NOTE | 2018-08-20 02:47 | Progress Notes ---
DATE: 08/19/2018 PULMONARY PROGRESS NOTE SUBJECTIVE: The patient appears to be doing okay. OBJECTIVE: VITAL SIGNS: Temperature 97.8, pulse 95, respirations 20, blood pressure 129/61, saturation 96%. CHEST: Good breath sounds. No wheezing or crackles. HEART: Regular rate and rhythm. ABDOMEN: Soft. No tenderness. EXTREMITIES: No edema. LABORATORY AND DIAGNOSTIC DATA: WBC is 7.5, hemoglobin 11.7, hematocrit 36.4, platelets 213. Sodium 138, potassium 4.6, BUN is 12, creatinine 0.9. IMPRESSION: 1. Pneumonia. 2. Weakness. 3. Still in tuberculosis isolation, awaiting [facility] to clear, so he can be discharged. JOB# [id number]
[2018-08-20 05:28] LABS: % BASOPHILS 0.3 % (0.0-2.0); % EOSINOPHILS 3.2 % (0.0-5.0); % LYMPHOCYTES 26.3 % (20.0-50.0); % MONOCYTES 10.2 % (2.0-10.0); EOSINOPHILE ABSOLUTE 0.2 Th/cmm (0.1-0.4); HEMATOCRIT 36.6 % (41.0-60); HEMOGLOBIN 11.8 gm/dL (12-16); LYMPHOCYTE ABSOLUTE 2.1 Th/cmm (1.5-3.0); MEAN CELL VOLUME 77.3 fl (80-99); MEAN CORPUSCULAR HGB CONC 32.3 pg (28.0-36.0); MEAN PLATELET VOLUME 8.8 fl; MONOCYTE ABSOLUTE 0.8 Th/cmm (0.3-1.0); NEUTROPHILE ABSOLUTE 4.7 Th/cmm (1.8-8.0); PLATELET COUNT 228 Th/cmm (150-400); RED BLOOD COUNT 4.73 Mil/cmm (3.80-5.80); RED CELL DISTRIBUTION WIDTH 15.4 % (11.5-20.0); WHITE BLOOD COUNT 7.8 Th/cmm (4.8-10.8)
[2018-08-20 05:44] LABS: ALB/GLOB RATIO 1.4 (1.0-1.8); ALBUMIN 3.3 gm/dL (4.2-5.5); ALKALINE PHOSPHATASE 86 U/L (34-104); ANION GAP 10.1 (7.0-16.0); BILIRUBIN,TOTAL 0.6 mg/dL (0.3-1.0); BUN - UREA NITROGEN 24 mg/dL (7-25); CARBON DIOXIDE 27.3 mEq/L (21.0-31.0); CHLORIDE 105 mEq/L (98-107); GLUCOSE 104 mg/dL (70-105); POTASSIUM SERUM 4.4 mEq/L (3.5-5.1); SGOT 21 U/L (13-39); SGPT/ALT 11 U/L (7-52); SODIUM SERUM 138 mEq/L (136-145); TOTAL PROTEIN,SERUM 5.7 gm/dL (6.0-8.3)
[2018-08-20] MEDS: Escitalopram Oxalate 5 mg Tab PO SCH (09:26)
[2018-08-20] MEDS: Aspirin 81mg Chewable Tab PO SCH (09:27)
--- NOTE | 2018-08-20 09:39 | Diagnostic Imaging Report ---
Portable chest x-ray HISTORY: Shortness of breath The heart size is normal. Compared to prior exam of August 13, 2018, there remains elevation the right hemidiaphragm. No acute focal bony processes. Surgical changes seen. IMPRESSION: 1. Persistent elevation the right hemidiaphragm with no definite acute focal pulmonary processes.
== END 2018-08-20 15:43 | DRG 193 ==
LOC: ER 15:18 → MSI 16:48
PROVIDERS: ADMIT Internal Medicine; ATTEND Internal Medicine
DX: J18.1 Lobar pneumonia, unspecified organism (principal); J96.90 Respiratory failure, unspecified, unspecified whether with hypoxia or hypercapnia; F02.81 Dementia in other diseases classified elsewhere, unspecified severity, with behavioral disturbance; I10 Essential (primary) hypertension; I25.10 Atherosclerotic heart disease of native coronary artery without angina pectoris; E78.5 Hyperlipidemia, unspecified; G20 Parkinson's disease; N40.0 Benign prostatic hyperplasia without lower urinary tract symptoms; D64.9 Anemia, unspecified; F32.9 Major depressive disorder, single episode, unspecified; I11.9 Hypertensive heart disease without heart failure; E03.9 Hypothyroidism, unspecified; Z95.1 Presence of aortocoronary bypass graft
CPT/HCPCS: 36415-UA; 71045-TC; 71250-TC; 80048-TC; 80053-TC; 80069-TC; 80076-TC; 81001-TC; 82948-90; 83605; 85025-TC; 85610-TC; 86480-90; 86703-TC; 86738-90; 87070; 87086-90; 87116-90; 87206-90; 87449-90; 94760; J0456; J0696; J2060; J7040; Q0162; Z7610